=== PATIENT | male | born 2000 | race Caucasian/White ===

== ENCOUNTER 2019-04-06 14:31 | Outpatient (CLI) | payer OTHER, SELFPAY ==
--- NOTE | ~2019-04-06 | CT_ITS ---
EXAMINATION: CT abdomen w con DATE: 04/06/2019 15:20 INDICATION: Splenomegaly. TECHNIQUE: Computed tomography (CT) of the abdomen was performed with 100 mL Omnipaque 350 intravenou s contrast. Automated exposure control and iterative reconstruction technique were employed. The dose -length product was 105.73 mGy-cm. COMPARISON: CT abdomen and pelvis 09/22/2018 FINDINGS: There is poor contrast opacification due to IV infiltration. The visualized portions of the lung bases are clear without pneumonia or pleural effusion. The heart size is normal. No pericardial effusion. The liver, gallbladder, pancreas, adrenal glands, and kidneys are normal. There is no urol ithiasis. There is mild splenomegaly measuring 14.7 cm. There are no dilated loops of bowel. There ar e no pathologically enlarged lymph nodes. There is no free intraperitoneal fluid. The bones are unrem arkable. IMPRESSION: 1. Stable mild splenomegaly, likely secondary to obesity. Reviewed, dictated and finalized at location A. 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
== END 2019-04-06 14:32 | disposition home or self-care (01) ==
LOC: ANHIMG 14:36
PROVIDERS: Visit Provider Nurse Practitioner Adult Health
DX: R16.1 Splenomegaly, not elsewhere classified (principal)
CPT/HCPCS: 74160; Q9967

== ENCOUNTER → 2020-11-23 12:56 | Outpatient (CLI) | payer MEDICARE, MEDICAID, SELFPAY ==
--- NOTE | ~2020-11-23 | CT_ITS ---
EXAMINATION: CT abdomen wo/w con DATE: 11/23/2020 13:44 INDICATION: Adrenal gland disorder TECHNIQUE: Computed tomography (CT) of the abdomen was performed without intravenous contrast. CT of the abdomen was then performed with a total of 100 mL Omnipaque 350 intravenous contrast. The dose-le ngth product (DLP) was 2449.21 mGy-cm. Automated exposure control and iterative reconstruction techni que were employed. COMPARISON: 04/06/2019 FINDINGS: The lung bases are clear. The heart size is normal. The liver, spleen, pancreas, gallbladde r, and kidneys are normal. The adrenal glands are normal. No adrenal mass is identified. There are no pathologically enlarged abdominal lymph nodes. The appendix is normal. There is no free intraperiton eal gas or evidence of bowel obstruction. IMPRESSION: 1. Normal adrenal glands by CT. Reviewed, dictated and finalized at location A.
== END ==
PROVIDERS: PCP Nurse Practitioner Adult Health; Visit Provider Internal Medicine Endocrinology, Diabetes & Metabolism
DX: E27.9 Disorder of adrenal gland, unspecified (principal)
CPT/HCPCS: 74170; Q9967

== ENCOUNTER 2022-01-22 10:05 | Outpatient (CLI) | payer MEDICARE, MEDICAID, SELFPAY ==
--- NOTE | ~2022-01-22 | XR_ITS ---
EXAMINATION: XR chest 2V 01/22/2022 11:18 INDICATION: Asthma. PROCEDURE: 2 view chest COMPARISON: No prior studies for comparison. FINDINGS: The lungs are clear. The cardiomediastinal silhouette is within normal limits. There are no pleural effusions. There is no pneumothorax suspected. IMPRESSION: 1: NO ACUTE CARDIOPULMONARY DISEASE. Reviewed, dictated and finalized at location A. ACE BOSS
--- NOTE | 2022-01-23 16:30 | WPDPFTINT ---
PFT Procedure Performed PFT Procedure Performed Spirometry with Pre/Post Bronchodilator Plethysmography (Lung Vol) Diffusing Cap (DLCO) Flow Vol Loop PFT Interpretation Lung volumes were measured with the body plethysmography method. This severely reduced expiratory reserve volume is due to morbid obesity. The remaining lung volumes are unremarkable. Spirometry showed normal expiratory flow rates and a normal FEV1 to FVC ratio of 82%. Following administration of a bronchodilator there was no significant increase in expiratory flow rates. Lung diffusion capacity is within the normal range at 91% predicted. The flow volume loop is unremarkable. Impression: Spirometry, lung volumes, and lung diffusion capacity all within the normal range.
== END 2022-01-22 10:06 | disposition home or self-care (01) ==
PROVIDERS: PCP Family Medicine; Visit Provider Nurse Practitioner
DX: J45.909 Unspecified asthma, uncomplicated (principal)
CPT/HCPCS: 71046; 94060; 94726; 94729

== ENCOUNTER 2022-02-12 01:03 | Day surgery (SDC) | payer MEDICARE, MEDICAID, SELFPAY ==
[2022-02-05 12:29] VITALS: BMI 46.2
[2022-02-12 12:52] VITALS: BP 141/72; PULSE 87; RESP 20; TEMP 36.7; O2SAT 100
[2022-02-12] MEDS: LACTATED RINGERS 1,000 ML 150 ML IV CONT (12:54)
--- NOTE | 2022-02-12 13:27 | WPDANESEPPF ---
Anes - Initial Pre Proc Eval Procedure: Operation Date: 02/12/22 14:15 Proposed Procedures p Esophagogastroduodenoscopy & Colonoscopy - Steven Swanson MD Date/Time: 02/12/22 13:27 Surgeon: Steven Swanson MD Pre Op Diagnosis: Nausea, vomiting, GERD; Melena Patient Data Age: 21 Gender: M Height: 1.83 m Weight: 151.7 kg Last Vital Signs Temp 36.7 C 02/12/22 12:52 Pulse 87 02/12/22 12:52 Resp 20 02/12/22 12:52 BP 141/72 H 02/12/22 12:52 Pulse Ox 100 02/12/22 12:52 O2 Del Method Room Air 02/12/22 12:52 Allergies Allergy/AdvReac Type Severity Reaction Status Date / Time Sulfa (Sulfonamide Allergy Unknown Unknown Verified 02/12/22 12:53 Antibiotics) Home Medications Medication Instructions Recorded Confirmed Type pantoprazole 40 mg tablet,delayed 40 mg PO QAM #30 tabs 01/23/22 02/12/22 Rx release atorvastatin 20 mg tablet 20 mg PO DAILY 02/05/22 02/12/22 History citalopram 20 mg tablet 20 mg PO DAILY 02/05/22 02/12/22 History ibuprofen 800 mg PO TID PRN Pain 02/05/22 02/12/22 History levofloxacin 500 mg tablet 500 mg PO DAILY 02/05/22 02/12/22 History levothyroxine 137 mcg tablet 137 mcg PO DAILY 02/05/22 02/12/22 History loratadine 10 mg PO DAILY 02/05/22 02/12/22 History montelukast 10 mg tablet 10 mg PO DAILY 02/05/22 02/12/22 History Patient hx anesthesia problems: none Family hx anesthesia problems: none Results Review: All pre-operative results and documents have been reviewed as part of the pre-operative evaluation. [facility] Past Medical History Medical History Chronic benign neutropenia Family hx colonic polyps Family hx of colon cancer GERD (gastroesophageal reflux disease) Hematochezia Nausea and vomiting Obesity Social History Social History Smoking status: Never smoker Alcohol intake: never Substance use: never Substance use type: does not use Living arrangements: with family Spiritual care concerns: No Anes - Eval Final PreProcedure Day of Procedure 02/12/22 13:27 Patient weight: super morbidly obese Heart: regular rate and rhythm Lungs: decreased breath sounds Airway: Mallampati scale class II Neurological: alert and oriented Last oral intake: >/= 8 hours ASA classification: III Emergent: no Anesthetic plan: proceed Anesthesia type and monitoring: general GIVS and standard monitoring Results Review: All pre-operative results and documents have been reviewed as part of the pre-operative evaluation. Informed Consent: The patient's anesthetic plan and its attendant risks and benefits were discussed with the patient/family/POA. Questions were solicited and answers provided to the satisfaction of the patient/family/POA.
--- NOTE | 2022-02-12 13:31 | WPDHPUPDATE1 ---
History and Physical Update Update Date/Time: 02/12/22 13:31 History and Physical has been reviewed, including an updated exam of the patient. There are NO changes in the patient's condition. Risks, benefits, and alternatives have been discussed and questions answered. Patient agrees to proceed with procedure.
--- NOTE | 2022-02-12 13:41 | SUR.OPER ---
EGD END TIME 1345 COLON START TIME 1355
[2022-02-12 14:03] VITALS: BP 122/74; PULSE 109; RESP 25; O2SAT 100
[2022-02-12 14:13] VITALS: BP 101/61; PULSE 100; RESP 19; O2SAT 100
[2022-02-12 14:23] VITALS: BP 130/68; PULSE 98; RESP 20; O2SAT 98
== END 2022-02-12 14:36 | disposition home or self-care (01) ==
PROVIDERS: PCP Family Medicine; Visit Provider Internal Medicine Gastroenterology
PROC: 0DJ08ZZ Inspection of Upper Intestinal Tract, Via Natural or Artificial Opening Endoscopic (ICD-10-PCS; CPT 43235; principal; 2022-02-12 14:15)
DX: K92.1 Melena (principal); K64.8 Other hemorrhoids; R11.2 Nausea with vomiting, unspecified; K21.9 Gastro-esophageal reflux disease without esophagitis; Z80.0 Family history of malignant neoplasm of digestive organs; Z83.71 Family history of colonic polyps; E66.01 Morbid (severe) obesity due to excess calories; Z68.42 Body mass index [BMI] 45.0-49.9, adult
CPT/HCPCS: 45378; 43239; 88305; J2704; J7120

== ENCOUNTER 2022-03-25 12:49 | Outpatient (CLI) | payer MEDICARE, MEDICAID, SELFPAY ==
--- NOTE | 2022-03-25 15:13 | PCRCNOTE ---
NOTE: PATIENT EXPERIENCED SOB AND COUGH WHEN COMPLETING LAST DOSE OF METHACHOLINE(LEVEL 5) ALSO REQUIRED 2 ALBUTEROL NEB TREATMENTS TO RETURN TO BASELINE FEV1. ATTEMPTED 7 POST SPIROMETRY TRIALS.
--- NOTE | 2022-03-26 14:46 | WPDMETH ---
Methacholine Procedure Perform Procedure Performed Methacholine Challenge Methacholine Challenge Methacholine Challenge: Methacholine challenge was performed with quadruple increases of nebulized methacholine according to 5 steps dosimeter protocol recommended by the ATS/ERS 2017 guidelines. Following administration of 464.4 mcg of methacholine at step 5, the measured FEV1 decreased by approximately 15% from the baseline measurement. Post administration of the first dose of nebulized short-acting bronchodilator, the FEV1 did not change significantly. Impression: Negative methacholine challenge testing. Normal airway hyperresponsiveness.
== END 2022-03-25 12:50 | disposition home or self-care (01) ==
LOC: ANHPFT 12:50
PROVIDERS: PCP Family Medicine; Visit Provider Nurse Practitioner
DX: J45.909 Unspecified asthma, uncomplicated (principal)
CPT/HCPCS: 94070; J7674

== ENCOUNTER 2022-04-04 20:49 | Emergency (ER) | payer MEDICARE, MEDICAID, SELFPAY ==
[2022-04-04 20:50] VITALS: BP 141/90; PULSE 97; RESP 20; O2SAT 97
--- NOTE | 2022-04-04 21:06 | ED.NAVMDI ---
HPI - Nausea/Vomiting/Diarrhea General Chief complaint: Nausea/Vomiting/Diarrhea <Lacie Upton PA-C - Last Filed: 04/04/22 21:29> Stated complaint: hemorroids <Lacie Upton PA-C - Last Filed: 04/04/22 21:29> History of Present Illness HPI Narrative: 21-year-old male reports for rectal pain and bleeding with onset 20 minutes ago. Patient states he has been to having diarrhea the past few days since he was exposed to a positive COVID contact. He has not been tested for COVID. Patient states he was having diarrhea when he experienced sudden onset of rectal pain. States he noticed scant blood on the toilet paper. Patient reports he has a history of GI problems including vomiting and GI upset. States he got a colonoscopy and was seen by GI a in January. Colonoscopy was negative, other than hemorrhoids. Patient states he has topical hydrocortisone cream given by his primary that he applies to his hemorrhoids. Denies eating spicy food. Denies abdominal pain, nausea, vomiting, fever, body aches, chills. States his COVID like sx are improved other than the diarrhea. <Lacie Upton PA-C - Last Filed: 04/04/22 21:29> Related Data Home medications: Home Medications Medication Instructions Recorded Confirmed atorvastatin 20 mg tablet 20 mg PO DAILY 02/05/22 03/17/22 citalopram 20 mg tablet 20 mg PO DAILY 02/05/22 03/17/22 ibuprofen 800 mg PO TID PRN Pain 02/05/22 03/17/22 levofloxacin 500 mg tablet 500 mg PO DAILY 02/05/22 03/17/22 levothyroxine 137 mcg tablet 137 mcg PO DAILY 02/05/22 03/17/22 loratadine 10 mg PO DAILY 02/05/22 03/17/22 montelukast 10 mg tablet 10 mg PO DAILY 02/05/22 03/17/22 <Lacie Upton PA-C - Last Filed: 04/04/22 21:29> Allergies/Adverse reactions: Allergies Allergy/AdvReac Type Severity Reaction Status Date / Time Sulfa (Sulfonamide Allergy Unknown Unknown Verified 03/17/22 12:58 Antibiotics) <Lacie Upton PA-C - Last Filed: 04/04/22 21:29> Review of Systems Review of Systems: CONSTITUTIONAL: Denies fever, chills EYES: Denies visual changes, redness, or discharge. ENT: Denies rhinorrhea, congestion, sore throat, or otalgia. CARDIOVASCULAR: Denies chest pain, palpitations, or edema. RESPIRATORY: Denies cough or dyspnea. GASTROINTESTINAL: Denies abdominal pain, nausea, vomiting GENITOURINARY: Denies dysuria or hematuria. SKIN: Denies rash or itching. MUSCULOSKELETAL: Denies back pain, joint pain, or myalgia. NEUROLOGIC: Denies headache, numbness, dizziness, or weakness. PSYCHIATRIC: Denies anxiety or depression. <Lacie Upton PA-C - Last Filed: 04/04/22 21:29> [facility] Past Medical History Medical History: Medical History Chronic benign neutropenia Family hx colonic polyps Family hx of colon cancer GERD (gastroesophageal reflux disease) Hematochezia Nausea and vomiting Obesity <Lacie Upton PA-C - Last Filed: 04/04/22 21:29> Social History Social History: Social History Smoking status: Never smoker Alcohol intake: never Substance use: never Substance use type: does not use Living arrangements: with family Spiritual care concerns: No <Lacie Upton PA-C - Last Filed: 04/04/22 21:29> Exam Narrative: GENERAL: Well-appearing, well-nourished, and in no acute distress. HEAD: Normocephalic, atraumatic. EYES: PERRLA and EOMI. NECK: Supple. No adenopathy or masses. No carotid bruits or JVD CHEST: Clear to auscultation. No respiratory distress. No wheezes rales or rhonchi HEART: Regular rate and rhythm. No murmur heard. Normal peripheral pulses. ABDOMEN: Soft, nontender, nondistended, normal active bowel sounds. Diffuse erythema surrounding rectum. No external hemorrhoids, or anal fissures visualized. No internal hemorrhoids felt. no induration or fluctuation. EXTREMITIES: Normal range of
[2022-04-04 21:51] VITALS: BP 136/81; PULSE 95; RESP 22; O2SAT 96
== END 2022-04-04 22:00 | disposition home or self-care (01) ==
PROVIDERS: Emergency Provider Physician Assistant; PCP Family Medicine
DX: U07.1 COVID-19 (principal); L24.A9 Irritant contact dermatitis due friction or contact with other specified body fluids; K21.9 Gastro-esophageal reflux disease without esophagitis; E66.9 Obesity, unspecified; Z68.41 Body mass index [BMI] 40.0-44.9, adult
CPT/HCPCS: 99281

== ENCOUNTER 2022-04-21 13:40 | Outpatient (CLI) | payer MEDICARE, MEDICAID, SELFPAY ==
[2022-04-21 14:57] LABS: Hematocrit 41.6 % (42.0-52.0); Hemoglobin 13.5 g/dL (14.0-18.0); Mean Corpuscular HGB Conc 32.5 g/dl (32-36); Mean Corpuscular Hemoglobin 28.7 pg (26-34); Mean Corpuscular Volume 88.3 fl (80-100); Platelet Count Result 172 k/mm3 (150-375); Red Blood Count 4.71 M/mm3 (4.6-6.20); Red Cell Distribution Width 12.7 % (11.5-14.5); White Blood Count 2.5 K/mm3 (4.5-10.0)
[2022-04-21 15:23] LABS: CRP 4.4 mg/dL (<1.0)
[2022-04-21 16:04] LABS: Erythrocyte Sedimentation Rate 33 mm/hr (0-20)
== END 2022-04-21 13:41 | disposition home or self-care (01) ==
LOC: ANHLAB 13:41
PROVIDERS: Visit Provider Nurse Practitioner Family
DX: E66.9 Obesity, unspecified (principal); K60.2 Anal fissure, unspecified
CPT/HCPCS: 36415; 85027; 85652; 86140

== ENCOUNTER → 2022-04-21 14:16 | Outpatient (CLI) | payer MEDICARE, MEDICAID, SELFPAY ==
--- NOTE | ~2022-04-21 | CT_ITS ---
EXAMINATION: CT abdomen pelvis w con DATE: 04/21/2022 15:11 INDICATION: Rectal pain. TECHNIQUE: Computed tomography (CT) of the abdomen and pelvis was performed with 100 mL Omnipaque 350 intravenous contrast. Automated exposure control and iterative reconstruction technique were employe d. The dose-length product was 1544.11 mGy-cm. COMPARISON: CT abdomen 11/23/2020 FINDINGS: The visualized portions of the lung bases demonstrate minimal atelectasis. No pleural effus ion. The heart size is normal. No pericardial effusion. The liver, gallbladder, spleen, pancreas, adr enal glands, and kidneys are normal. There are no dilated loops of bowel. The appendix is normal. The re are no pathologically enlarged lymph nodes. There is no free intraperitoneal fluid. There is subcu taneous fat stranding in the left buttock at the intergluteal cleft. There is mild lumbar spondylosis . IMPRESSION: 1. Mild subcutaneous fat stranding in the left buttock at the intragluteal cleft, consistent with inf lammation. No abscess. Reviewed, dictated and finalized at location A. 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 Mild subcutaneous fat stranding in the left buttock at the intragluteal clef t, consistent with inflammation. No abscess.
== END ==
PROVIDERS: PCP Family Medicine; Visit Provider Nurse Practitioner Family
DX: K60.2 Anal fissure, unspecified (principal)
CPT/HCPCS: 74177; Q9967

== ENCOUNTER 2022-04-22 12:47 | Emergency (ER) | payer MEDICARE, MEDICAID, SELFPAY ==
[2022-04-22 12:59] VITALS: BP 125/82; PULSE 120; RESP 20; TEMP 36.2; O2SAT 98
--- NOTE | 2022-04-22 14:15 | PC.NURSE ---
pt and mother have sat out in lobby making snide comments about department and wait time. up to desk asking bracelet to be cut off. stating they are going to another facility.
--- NOTE | 2022-04-22 14:15 | PC.NURSE ---
pt and mother sitting across from intake desk. pt stated i shouldve come by ambulance. this world is so fucked up.
== END 2022-04-22 14:43 | disposition left against medical advice (07) ==
LOC: ANHED 15:11
PROVIDERS: PCP Family Medicine
DX: K62.89 Other specified diseases of anus and rectum (principal)
CPT/HCPCS: 99199

== ENCOUNTER 2022-07-18 08:00 | Outpatient (CLI) | payer MEDICARE, MEDICAID, SELFPAY ==
--- NOTE | ~2022-07-18 | CT_ITS ---
CT of the Pelvis: Indication: Rectal pain Technique: 2.5 mm axial scans were obtained through the pelvis following intravenous administration of 100 cc of Omnipaque 350. Dose reduction technique was used on this scan by utilizing automated exp osure control and iterative reconstruction technique. The dose-length product (DLP) was 1009.84 mGy-c m. COMPARISON: 04/21/2022 Findings: No aortic aneurysm. Stable shotty bilateral inguinal lymph nodes. Urinary bladder unremarka ble. Prostate gland and seminal vesicles are unremarkable. No ascites. Visualized bowel loops are unremarkable. No perirectal abscess. Subcutaneous soft tissues are unremar kable. No abnormal mass lesion or fluid collection seen. Impression: No significant abnormalities seen. Reviewed, dictated and finalized at [facility]. Impression: No significant abnormalities seen.
== END 2022-07-18 08:01 | disposition home or self-care (01) ==
PROVIDERS: PCP Family Medicine; Visit Provider Surgery
DX: K62.89 Other specified diseases of anus and rectum (principal)
CPT/HCPCS: 72193; Q9967

== ENCOUNTER 2022-08-26 16:22 | Emergency (ER) | payer MEDICARE, MEDICAID, SELFPAY ==
--- NOTE | ~2022-08-26 | CT_ITS ---
CT of the Abdomen and Pelvis: Indication: Rectal abscess Technique: 2.5 mm axial scans were obtained through the abdomen and pelvis following intravenous adm inistration of 100 cc of Omnipaque 350. Dose reduction technique was used on this scan by utilizing a utomated exposure control and iterative reconstruction technique. The dose-length product (DLP) was 1 834.75 mGy-cm. COMPARISON: 07/18/2022 Findings: Scans through the lung bases are unremarkable. The liver, spleen, pancreas, gallbladder, adrenals and kidneys are within normal limits. No evidence of aortic aneurysm. No lymphadenopathy. No bowel obstruction or bowel wall thickening. There is no evidence to suggest acute appendicitis. Images through the pelvis were performed. Urinary bladder unremarkable. Prostate gland and seminal ve sicles are unremarkable. No evidence for perirectal abscess. No ascites. Impression: No significant abnormalities seen. Reviewed, dictated and finalized at [facility]. Impression: No significant abnormalities seen.
[2022-08-26 16:26] VITALS: BP 157/95; PULSE 94; RESP 20; TEMP 36.6; O2SAT 100
--- NOTE | 2022-08-26 17:50 | ED.SKABFB ---
HPI - Skin/Abscess/Foreign Bdy General Chief complaint: Skin/Abscess/Foreign Body <Lacie Upton PA-C - Last Filed: 08/27/22 00:48> Stated complaint: Rectal Abcess swelling, pain, and drainage <Lacie Upton PA-C - Last Filed: 08/27/22 00:48> Time Seen by Provider: 08/26/22 17:00 <Lacie Upton PA-C - Last Filed: 08/27/22 00:48> History of Present Illness HPI narrative: 21-year-old male with a history of rectal abscess and neutropenia reports for evaluation of increased rectal pain and drainage since yesterday. Patient has been having rectal pain since he had COVID in March 2022. He went to [place] [facility] on 04/22, was found to have a rectal abscess and had it drained in the ER by Dr. Hardin's assistance. Patient reports since his procedure he has been having rectal pain and drainage. States yesterday he noticed it was draining and messed with it and today the pain is a 9 out of 10. States the drainage is purulent. His last colonoscopy was on 02/13 showing internal hemorrhoids. He denies blood, melena, abdominal pain, fever, nausea or vomiting. He was evaluated by GI on 04/17 by Gilda Abdullahi, was dx with anal fissures and started on topical compound cream consistent of nifedipine, lidocaine, and hydrocortisone. CT scan on 04/21/2022 shows mild subcutaneous fat stranding in the left buttock at the intergluteal cleft, consistent with inflammation, no abscess. He was then seen by Dr. Muñoz (general surgery) on 07/11/22, found to have inflammation around the anal opening, CT with contrast ordered for further evaluation showing no abscess, SubQ tissues unremarkable. He was then referred to Dr. Potter with an unremarkable exam. He is scheduled to undergo a sigmoidoscopy on 09/[address] Potter. He is currently be evaluated by hematology at [facility] (Dr. Daniel) for neutropenia for 5 years. He is on daily Levaquin and Diflucan for prophylaxis. He denies fevers, abdominal pain, melena or hematochezia, urinary complaints back pain. Last BM yesterday was normal. He has not taken his stool stofteners or fiber in a couple days. He has not been using topical creams bc they burn . <Lacie Upton PA-C - Last Filed: 08/27/22 00:48> Related Data Home medications: Home Medications Medication Instructions Recorded Confirmed atorvastatin 20 mg tablet 20 mg PO DAILY 02/05/22 07/14/22 citalopram 20 mg tablet 20 mg PO DAILY 02/05/22 07/14/22 ibuprofen 800 mg PO TID PRN Pain 02/05/22 07/14/22 levothyroxine 137 mcg tablet 137 mcg PO DAILY 02/05/22 07/14/22 loratadine 10 mg PO DAILY 02/05/22 07/14/22 montelukast 10 mg tablet 10 mg PO DAILY 02/05/22 07/14/22 cyclobenzaprine 10 mg tablet 10 mg PO TID 07/11/22 07/14/22 levofloxacin 250 mg tablet 250 mg PO DAILY 07/11/22 07/14/22 <Lacie Upton PA-C - Last Filed: 08/27/22 00:48> Allergies/Adverse reactions: Allergies Allergy/AdvReac Type Severity Reaction Status Date / Time Sulfa (Sulfonamide Allergy Unknown Unknown Verified 08/26/22 16:33 Antibiotics) <Lacie Upton PA-C - Last Filed: 08/27/22 00:48> Review of Systems Review of Systems: CONSTITUTIONAL: Denies fever, chills EYES: Denies visual changes, redness, or discharge. ENT: Denies rhinorrhea, congestion, sore throat, or otalgia. CARDIOVASCULAR: Denies chest pain, palpitations, or edema. RESPIRATORY: Denies cough or dyspnea. GASTROINTESTINAL: See HPI GENITOURINARY: Denies dysuria or hematuria. SKIN: Denies rash or itching. MUSCULOSKELETAL: Denies back pain, joint pain, or myalgia. NEUROLOGIC: Denies headache, numbness, dizziness, or weakness. PSYCHIATRIC: Denies anxiety or depression. <Lacie Upton PA-C - Last Filed: 08/27/22 00:48> [facility] Past Medical History Medical History: Medical History Abnormal finding on imaging Anal fissure Chronic benign neutropenia Family hx colonic polyps Famil
[2022-08-26] MEDS: SODIUM CHLORIDE 0.9% IV 1,000 ML 999 ML IV CONT (18:20)
[2022-08-26 18:26] LABS: Appearance Urine Clear (Clear); Basophils Percent Auto 0.7 % (0.2-1.2); Bilirubin Urine Negative (Negative); Blood Urine Negative (Negative); Color Urine Yellow (Yellow); Eosinophils Percent Auto 2.2 % (0-4.4); Glucose Urine UA Negative (Negative); Hematocrit 40.9 % (42.0-52.0); Hemoglobin 14.1 g/dL (14.0-18.0); Immature Granulocyte Absolute 0.01 K/mm3 (0.00-0.031); Immature Granulocyte Percent A 0.7 % (0-0.5); Ketones Urine Negative (Negative); Leukocyte Esterase Ur Negative LEU/UL (Negative); Lymphocytes Absolute Auto 0.57 K/mm3 (0.9-3.2); Lymphocytes Percent Auto 41.9 % (18.3-44.2); Mean Corpuscular HGB Conc 34.5 g/dl (32-36); Mean Corpuscular Volume 84.2 fl (80-100); Mean Platelet Volume 11.9 fl (7.4-10.4); Monocytes Absolute Auto 0.4 K/mm3 (0.1-0.6); Monocytes Percent Auto 32.4 % (2.6-8.5); Neutrophils Absolute Auto 0.3 K/mm3 (1.3-6.7); Neutrophils Percent Auto 22.1 % (45.5-73.1); Nitrate Urine Negative (Negative); Platelet Count Result 127 k/mm3 (150-375); Protein Urine Negative (Negative); Red Blood Count 4.86 M/mm3 (4.6-6.20); Red Cell Distribution Width 12.3 % (11.5-14.5); Specific Grav Ur 1.015 (1.001-1.035); Urobilinogen Urine 0.2 mg/dL (<2.0)
[2022-08-26 18:27] LABS: Add Urine Microscopic? NO
[2022-08-26 18:36] LABS: Alanine Aminotransferase 29 U/L (6-50); Albumin Level 4.1 g/dL (3.5-5.1); Alkaline Phosphatase 52 U/L (38-126); Anion Gap 8 mmol/L (8-16); Aspartate Amino Transferase 22 U/L (17-59); Bilirubin,Total 0.9 mg/dL (0.2-1.3); Blood Urea Nitrogen 9 mg/dL (9-20); Calcium 8.9 mg/dL (8.4-10.2); Carbon Dioxide 25 mmol/L (22-30); Chloride 107 mmol/L (98-107); Estimated CRCL calculation 161 ml/min; Estimated Glomerular Filt Rate > 60; Glucose 97 mg/dL (65-110); Lipase 35 U/L (23-300); Potassium 3.6 mmol/L (3.4-5.0); Sodium 140 mmol/L (137-145)
[2022-08-26 19:00] LABS: White Blood Count 1.4 K/mm3 (4.5-10.0)
[2022-08-26 20:03] VITALS: BP 117/85; PULSE 66; RESP 14; O2SAT 100
== END 2022-08-26 20:04 | disposition home or self-care (01) ==
PROVIDERS: Emergency Provider Physician Assistant; PCP Family Medicine
DX: K62.89 Other specified diseases of anus and rectum (principal); D72.819 Decreased white blood cell count, unspecified; K21.9 Gastro-esophageal reflux disease without esophagitis; E66.9 Obesity, unspecified; Z68.41 Body mass index [BMI] 40.0-44.9, adult
CPT/HCPCS: 36415; 74177; 80053; 81003; 83690; 85025; 96360; 99284; J7030; Q9967

== ENCOUNTER 2023-02-27 11:22 | Outpatient (CLI) | payer MEDICARE, MEDICAID, SELFPAY ==
[2023-02-27 12:15] LABS: CRP 1.1 mg/dL (<1.0)
[2023-02-27 12:47] LABS: Erythrocyte Sedimentation Rate 1 mm/hr (0-20)
[2023-03-04 10:20] LABS: ANCA Screen Negative (Negative); Myeloperoxidase Ab <1.0 AI (<1.0); Proteinase-3 Ab <1.0 AI (<1.0); S cerevisiae Ab (IgA) 4.5 U (<=20.0); S cerevisiae Ab (IgG) 20.1 U (<=20.0)
[2023-03-06 10:00] LABS: Immunoglobulin A 39 mg/dL (47-310); TTG IGA AB <1.0 U/mL (<15.0); Tissue Transglutaminase IgG Ab <1.0 U/mL (<15.0)
== END 2023-02-27 11:23 | disposition home or self-care (01) ==
PROVIDERS: PCP Family Medicine; Visit Provider Nurse Practitioner
DX: K61.0 Anal abscess (principal); K62.89 Other specified diseases of anus and rectum; K64.4 Residual hemorrhoidal skin tags
CPT/HCPCS: 36415; 82784; 85652; 86036; 86140; 86364; 86671

== ENCOUNTER 2023-05-23 12:26 | Outpatient (CLI) | payer MEDICARE, MEDICAID, SELFPAY ==
--- NOTE | ~2023-05-23 | MR_ITS ---
EXAMINATION: MR pelvis wo/w con DATE: 05/23/2023 14:39 INDICATION: Crohn disease. Abdominal pain. Diarrhea. TECHNIQUE: Magnetic resonance imaging (MRI) of the pelvis was performed without and with 20 mL MultiH ance intravenous contrast. COMPARISON: CT abdomen and pelvis 08/26/2022 FINDINGS: There are no dilated loops of bowel. There is a 6 mm perianal abscess best seen on postcontrast axial images. The prostate is mildly enlarged. There are no pathologically enlarged lymph nodes. There is no free intraperitoneal fluid. IMPRESSION: 1. 6 mm perianal abscess. Reviewed, dictated and finalized at location A. IMPRESSION: 1. 6 mm perianal abscess.
--- NOTE | ~2023-05-23 | MR_ITS ---
EXAMINATION: MR abdomen wo/w con DATE: 05/23/2023 14:22 INDICATION: Crohn's disease. Abdominal pain. Diarrhea. TECHNIQUE: Magnetic resonance imaging (MRI) of the abdomen was performed without and with 20 mL Multi Katia intravenous contrast. COMPARISON: CT abdomen and pelvis 08/26/2022 FINDINGS: There is chronic mild splenomegaly, which may be secondary to obesity. The liver, gallbladder, pancre as, adrenal glands, and kidneys are normal. There are no dilated loops of bowel. The terminal ileum i s normal. There is no lymphadenopathy. There is no free intraperitoneal fluid. IMPRESSION: 1. No etiology for the patient's symptoms. Reviewed, dictated and finalized at location A.
== END 2023-05-23 12:27 | disposition home or self-care (01) ==
LOC: ANHIMG 12:30
PROVIDERS: PCP Family Medicine; Visit Provider Internal Medicine Endocrinology, Diabetes & Metabolism
DX: K50.90 Crohn's disease, unspecified, without complications (principal); R10.9 Unspecified abdominal pain; R19.7 Diarrhea, unspecified; K61.0 Anal abscess
CPT/HCPCS: 72197; 74183; A9577

== ENCOUNTER 2023-08-20 09:44 | Outpatient (CLI) | payer MEDICARE, MEDICAID, SELFPAY ==
[2023-08-20 12:16] LABS: Immunoglobulin G 876 mg/dL (700-1600); Immunoglobulin M 51 mg/dL (40-230)
[2023-08-20 12:28] LABS: Immunoglobulin A < 40 mg/dL (70-400)
== END 2023-08-20 09:45 | disposition home or self-care (01) ==
LOC: ANHLAB 09:48
PROVIDERS: PCP Nurse Practitioner Adult Health; Visit Provider Internal Medicine Hematology & Oncology
DX: D83.9 Common variable immunodeficiency, unspecified (principal)
CPT/HCPCS: 36415; 82784

== ENCOUNTER 2023-09-18 18:41 | Emergency (ER) | payer MEDICARE, MEDICAID, SELFPAY ==
[2023-09-18 19:18] VITALS: BP 128/74; PULSE 109; RESP 16; TEMP 36.8; O2SAT 100
[2023-09-18 21:11] VITALS: BP 131/65; PULSE 111; RESP 18; TEMP 36.8; O2SAT 96
--- NOTE | 2023-09-18 21:32 | ED.SKABFB ---
HPI - Skin/Abscess/Foreign Bdy General Chief complaint: Skin/Abscess/Foreign Body Stated complaint: abcess Time Seen by Provider: 09/18/23 20:38 History of Present Illness HPI narrative: This is a 22-year-old male with a past medical history significant for hidradenitis who presents to the ED for concerns of subcutaneous wall abscess in his chest wall. Patient states he has been doing this for several years and recurs occasionally. He has been irritating it and picking at it recently which has caused become inflamed and have a putrid smell with some discharge. Patient states he was prescribed Levaquin recently without any help for the last 2 days. Patient denies any systemic features of infection such as fever, chills, headache fevers chills no chest pain, shortness of breath. Related Data Home Medications Medication Instructions Recorded Confirmed levothyroxine 137 mcg tablet 137 mcg PO DAILY 02/05/22 09/14/23 loratadine 10 mg PO DAILY 02/05/22 09/14/23 levofloxacin 250 mg tablet 500 mg PO DAILY 07/11/22 09/14/23 albuterol sulfate 90 mcg/actuation 2 puff inhalation Q4-5H PRN 08/28/22 09/14/23 aerosol inhaler (Ventolin HFA) Shortness Of Breath Or Wheezing budesonide-formoterol HFA 160 2 puff inhalation BID 08/28/22 09/14/23 mcg-4.5 mcg/actuation aerosol inhaler (Symbicort) fluconazole 200 mg tablet 400 mg PO DAILY 08/28/22 09/14/23 Fiber BYMOUTH 06/30/23 09/14/23 Stool Softeners BYVAUTH 06/30/23 09/14/23 Allergies Allergy/AdvReac Type Severity Reaction Status Date / Time Sulfa (Sulfonamide Allergy Unknown Unknown Verified 09/14/23 10:57 Antibiotics) vancomycin Allergy Unknown Unknown Verified 09/14/23 10:57 Review of Systems Review of Systems: As reviewed above in the HPI [facility] Past Medical History Medical History Abnormal finding on imaging Anal fissure Chronic benign neutropenia External hemorrhoids Family hx colonic polyps Family hx of colon cancer GERD (gastroesophageal reflux disease) Hematochezia Hemorrhoids Hidradenitis suppurativa Nausea and vomiting Obesity Family History Family History Mother Asthma Diabetes mellitus Hypertension Depression Heart disease Cerebrovascular accident History of ETOH abuse Disorder of thyroid Grandparent Diabetes mellitus Hypertension Lung cancer Ovarian cancer Social History Social History Smoking status: Never smoker Alcohol intake: never Substance use: never Substance use type: does not use Lack of Transportation: No Lack of Food: Never True Current Housing: I Have Housing Concerned About Future Housing: No Difficulty Paying Gas/Electric Bills: No Difficulty Paying for Meds: No Currently Unemployed: YES Education: High School Diploma/GED Living arrangements: with family Occupation/Education: unemployed Gender identity (if verbalized by the patient): Male Spiritual care concerns: No Exam Narrative: GENERAL: [Well-appearing, well-nourished, and in no acute distress.] HEAD: [Normocephalic, atraumatic.] EYES: [PERRLA and EOMI.] ENT: Nares clear, no rhinorrhea or epistaxis. Mucous membranes moist. NECK: Supple. CHEST: [Clear to auscultation. No respiratory distress.] HEART: [Regular rate and rhythm]. No murmur heard. [Normal peripheral pulses.] ABDOMEN: [Soft, nondistended], [nontender], [No rigidity or guarding] EXTREMITIES: Normal range of motion. [No edema.] SKIN: There is an area of approximately 3 cm x 3 cm of warm indurated skin in the parasternal chest wall more on the right side. There is a punctate wound with purulent material drainage with a foul odor. No overlying erythema or significant tenderness to palpation. There is fluctuance without crepitus. NEURO: [No focal deficits]. Alert and oriented
[2023-09-18] MEDS: CEPHALEXIN 500 MG CAPSULE PO (21:58)
[2023-09-18] MEDS: KETOROLAC 30 MG/ML VIAL (*BKC) 15 MG IM (22:06)
== END 2023-09-18 22:12 | disposition home or self-care (01) ==
PROVIDERS: Emergency Provider Student in an Organized Health Care Education/Training Program; PCP Nurse Practitioner Adult Health
DX: L02.213 Cutaneous abscess of chest wall (principal); L73.2 Hidradenitis suppurativa
CPT/HCPCS: 10060; 96372; 99283; A9270; J1885

== ENCOUNTER 2023-10-24 10:56 | Outpatient (CLI) | payer MEDICARE, MEDICAID, SELFPAY ==
--- NOTE | ~2023-10-24 | CT_ITS ---
EXAMINATION: CT brain wo con DATE: 10/24/2023 11:12 INDICATION: TECHNIQUE: Computed tomography (CT) of the head was performed without intravenous contrast. The dose- length product was 605.33 mGy-cm. Automated exposure control and iterative reconstruction technique w ere employed. COMPARISON: None FINDINGS: There is an arachnoid cyst right middle cranial fossa extending into the sylvian fissure. N o ventriculomegaly or midline shift. No acute infarction, hemorrhage, mass or mass effect. Paranasal sinuses and mastoids are pneumatized. No depressed skull fractures. IMPRESSION: 1. Large arachnoid cyst of the right middle cranial fossa extending into the sylvian fissure. 2: No acute intracranial abnormality. Reviewed, dictated and finalized at location B. IMPRESSION: 1. Large arachnoid cyst of the right middle cranial fossa extending into the sy lvian fissure. 2: No acute intracranial abnormality.
== END 2023-10-24 10:57 | disposition home or self-care (01) ==
PROVIDERS: PCP Nurse Practitioner Adult Health; Visit Provider Nurse Practitioner Adult Health
DX: G93.0 Cerebral cysts (principal); G43.909 Migraine, unspecified, not intractable, without status migrainosus; R43.1 Parosmia
CPT/HCPCS: 70450

== ENCOUNTER 2024-05-23 15:27 | Outpatient (CLI) | payer MEDICARE, MEDICAID, SELFPAY ==
--- NOTE | ~2024-05-23 | CT_ITS ---
EXAMINATION: CT abdomen wo con DATE: 05/23/2024 15:59 INDICATION: Disorder of adrenal gland TECHNIQUE: Computed tomography (CT) of the abdomen was performed without intravenous contrast. Automa tejal exposure control and iterative reconstruction technique were employed. The dose-length product wa s 1016.20 mGy-cm. COMPARISON: CT dated 08/26/2022 and MR dated 05/23/2023 FINDINGS: There are few small calcite pulmonary. Visualized bilateral lower lungs. No pneumonia, pulmonary suzanne a or pleural effusion. Heart size normal. No pericardial effusion. Liver, gallbladder, spleen, pancre as, bilateral adrenal glands and kidneys are normal. Visualized portions of bowels including the appe ndix are normal. No pathologically enlarged abdominal lymphadenopathy. Mild lumbar and lower thoracic spondylosis. IMPRESSION: 1. Unremarkable abdominal CT with normal bilateral adrenal glands. Reviewed, dictated and finalized at location B.
--- OUTSIDE RECORDS SUMMARY | 2024-05-23 16:59 | XMS_ITS | CONTINUITY OF CARE DOCUMENT ---
Author Name corazon chandra Address Unknown Organization [facility] Address [address] [place] [address] Phone [phone] Care Team Providers Care Senior Advisor Name Role Phone Chad TSE, Zhao Unavailable Zhao Bonilla MD Unavailable INSURANCE PROVIDERS Payer name Policy type / Coverage type [place] [employer] party ID [employer] AND [employer]ILY [employer] Medicaid 1 [id number] [place] [employer] Medicare [id number]
--- OUTSIDE RECORDS SUMMARY | 2024-05-23 16:59 | XMS_ITS | Clinical Summary ---
Author Organization [facility] [employer] Address [address] [place] [address] Care Team Providers Care Leach Runner Name Role Phone Mukesh Maldonado MD Unavailable [phone] Jazlyn Villarreal MD Unavailable [phone] El-Lucila Campuzano MD Primary Care Provider [phone] Source Comments [facility],non-owned Affiliates and Associated Physician Practices is amultiple site organization consisting of ambulatory clinics and hospital sitesin [place], [place], [place] and [place]. This disclosure is being madepursuant to the Care Everywhere program and may not contain all information available regarding this patient. Last updated 17.[facility] Allergies Active Allergy Reactions Criticality Noted Date Comments Sulfa Drugs Urticaria Medium 01/08/2015 Vancomycin Itching 02/12/2023 Medications * Be aware that medications may not be up to date on this document. Alwaysverify current medications with the patient. Medication Sig Dispensed Refills Start Date End Date Status albuterol HFA (PROVENTIL;VENTOLI N;PROAIR) 108 (90 BASE) MCG/ACT inhaler Inhale 2 (two) puffs by mouth every 6 hours as needed Active loratadine (CLARITIN) 10 MG tablet TK 1 T PO QAM 6 03/20/2017 Active montelukast (SINGULAIR) 10 MG tablet TK 1 T PO QD IN THE LUKE 6 03/20/2017 Active citalopram (CELEXA) 20 MG tablet TK 1 T PO QD 1 04/07/2018 Active albuterol (PROVENTIL;VENTOLI N) (2.5 MG/3ML) 0.083% nebulizer solution U 1 VIAL PER NEBULIZER TID PRN 6 01/05/2018 Active atorvastatin (LIPITOR) 10 MG tablet Take 2 (two) tablets by mouth once daily Active Acetaminophen (TYLENOL) 325 MG CAPS Take 325 mg by mouth as needed Active calcium carbonate (TUMS) 500 MG chew tablet Take 1 (one) tablet by mouth daily with food Active levothyroxine (TIROSINT) 125 MCG capsule Take 1 (one) capsule by mouth daily before breakfast Active LORazepam (Ativan) 0.5 MG tabletIndications: Anxiety Take 2 tabs 1 hour prior to procedure and bring the rest to the procedure. Reasons: Feeling Anxious 5 tablet 10/14/2021 Active HYDROcodone-acetam inophen ([place]) 7.5-325 MG tablet Take 1 (one) tablet by mouth 3 times daily as needed 02/04/2023 Active amoxicillin-clavul anate (Augmentin) 875-125 MG tablet Take 1 (one) tablet by mouth every 12 hours FOR 10 DAYS 04/08/2023 Active levothyroxine (Synthroid) 100 MCG tablet Take 1 (one) tablet by mouth daily before breakfast Active levoFLOXacin (Levaquin) 500 MG tabletIndications: Neutropenia, unspecified type TAKE 1 TABLET BY MOUTH EVERY DAY 30 tablet 11 01/27/2024 Active Additional Information Patient not taking.Reported on 04/19/2024 fluconazole (Diflucan) 200 MG tabletIndications: Neutropenia, unspecified type TAKE 2 TABLETS BY MOUTH ONCE DAILY WHEN ABSOLUTE NEUTROPHIL COUNT IS LESS THAN 500 60 tablet 5 01/25/2024 Active Additional Information Patient not taking.Reported on 04/19/2024 ondansetron, disintegrating, (Zofran ODT) 4 MG tabletIndications: Nausea and vomiting, unspecified vomiting type Take 1 (one) tablet by mouth every 6 hours as needed for Nausea/Vomiting Allow tablet to dissolve on the tongue 30 tablet 02/23/2024 Active filgrastim-aafi (Nivestym) 480 MCG/0.8ML prefilled syringe Inject 0.8 mL subcutaneously every 7 days 3.2 mL 1 04/22/2024 Active Active Problems Problem Noted Date Diagnosed Date High risk for chemotherapy-induced infectious co mplication 05/12/2023 Chemotherapy-induced neutropenia 05/12/2023 Chronic benign neutropenia 06/23/2022 HTN (hypertension) 12/15/2018 Splenomegaly 11/03/2018 Leukopenia 11/03/2018 Acquired hypothyroidism 01/08/2015 Overview (01/08/2015): Dx (2013) on routine screening biochemistries and managed at [facility] until recently when insurance coverage changed and no longer at accepted at [facility]. No prior medical records available at the time of this office visit. Last serum thyroid hormone levels due in August-September,, but not completed. Assessment & Plan (05/11/2018 12:09 PM CDT): Well treated. 1. L-thyroxine 0.125 mg daily 2. Orders Placed This Encounter LIPID PROFILE Order Specific Question: Is Patient Fasting? Answer: Yes T4 TOTAL TSH COMPREHENSIVE METABOLIC PANEL famotidine (PEPCID) 20 MG tablet Sig: Take 1 tablet by mouth 2 times daily Dispense: 60 tablet Refill: 4 3. Follow up with local adult recreation supervisor Assessment & Plan (04/13/2017 9:54 AM MATTRESS RENOVATOR): Acquired hypothyroidism 1. L-thyroxine 0.125 mg daily 2. Obtain serum TSH and total T4 following today's office appointment 3. Return appointment in one year Assessment & Plan (04/01/2016 2:06 PM MATTRESS RENOVATOR): 1. L-thyroxine 0.125 mg daily. 2. Obtain serum TSH and total T4 level following today's office appointment. 3. Counseled regarding medication adherence, keeping return appointments for blood specimen collections, return visits, and risks of developing other autoimmune diseases (diabetes mellitus, hypoparathyroidism). 4. Obtain serum TSH in six months. 5. Return appointment in one year. Assessment & Plan (01/08/2015 3:16 PM MATTRESS RENOVATOR): 1. L-thyroxine 0.1 mg daily. 2. Obtain serum basic metabolic panel, TSH and total T4 levels following today's office appointment (laboratory requisition given at the time of the appointment). 3. Return appointment in six months. Acanthosis nigricans, acquired 01/08/2015 Assessment & Plan (05/11/2018 12:10 PM CDT): At risk of developing diabetes meliltus 1. Dietary/exercise counseling provided 2. Fasting serum biochemistries 3. Follow up by telephone with family after screening studies completed. Assessment & Plan (04/13/2017 9:53 AM MATTRESS RENOVATOR): Acanthosis nigricans; morbid obesity, BMI > 43 (> 99th percentile); FH diabetes mellitus; at risk of developing diabetes mellitus 1. Fasting glucose, lipid profile, hemoglobin A1c 2. Dietary/exercise counseling provided 3. Referral to clinical day habilitation supervisor 4. Reviewed signs/symptoms/treatment of diabetes mellitus Assessment & Plan (04/01/2016 2:08 PM MATTRESS RENOVATOR): At risk of developing diabetes mellitus. 1. Obtain fasting comprehensive metabolic panel, hemoglobin A1c, lipid profile. 2. Dietary/exercise counseling provided - to facilate current weight loss (portion size control, decrease dietary concentrated sweets/fats; avoid skipped meals, limit TV . Assessment & Plan (01/08/2015 3:15 PM MATTRESS RENOVATOR): At risk of developing diabetes mellitus. 1. Signs/symptoms of diabetes mellitus reviewed. 2. Dietary counseling provided. 3. Obtain serum glucose and hemoglobin A1c level following today's office appointment (laboratory requisition given at the time of the appointment). 4. Return appointment in six months. Encounters Date Type Department Care Team Description 05/13/2024 9:56 AM CDT - 05/13/2024 11:59 PM CDT Hospital Encounter [facility] [address] [place] [address] Jazlyn Villarreal MD Discharge Disposition: Home or Self Care 05/13/2024 Travel 05/10/2024 Orders Only [facility] - Hematology/Oncology [address] [place] [phone] Jazlyn Villarreal MD Neutropenia, unspecified type 04/25/2024 Telephone [facility] - Hematology/Oncology [address] [place] [phone] Jazlyn Villarreal MD Medication Prior Auth Request 04/25/2024 Telephone [facility] - Hematology/Oncology [address] [place] [phone] Jazlyn Villarreal MD Medication Prior Auth Request 04/22/2024 Telephone [facility] - Hematology/Oncology [address] [place] [phone] Jazlyn Villarreal MD Medication Prior Auth Request 04/22/2024 Telephone [facility] - Hematology/Oncology [address] [place] [phone] Jazlyn Villarreal MD Medication Prior Auth Request 04/22/2024 Orders Only [facility] [address] [place] [phone] Chuck Lama RN 04/19/2024 1:40 PM MATTRESS RENOVATOR Office Visit [facility] - Hematology/Oncology [address] [place] [phone] Lucila King MD Rajeh, Mhd Nabeel, MD Neutropenia, unspecified type (Primary Dx); Chronic benign neutropenia 04/19/2024 1:09 PM MATTRESS RENOVATOR - 04/19/2024 11:59 PM MATTRESS RENOVATOR Hospital Encounter [facility] [address] [place] [phone] Lucila King MD Discharge Disposition: Home or Self Care 04/19/2024 Telephone [facility] - Hematology/Oncology [address] [place] [phone] Jazlyn Villarreal MD Medication Prior Auth Request 04/19/2024 Telephone [facility] - Hematology/Oncology [address] [place] [phone] Jazlyn Villarreal MD 04/19/2024 Orders Only [facility] [address] [place] [phone] Susan Sanches, LANDON-GANG RIDER 04/19/2024 Travel 04/15/2024 Orders Only [facility] - Hematology/Oncology [address] [place] [phone] Jazlyn Villarreal MD Chronic benign neutropenia 03/28/2024 Refill [facility] [address] [place] [phone] Chuck Lama, REGULATORY LEADER REFILL 03/21/2024 Refill [facility] - Hematology/Oncology [address] [place] [phone] Jazlyn Villarreal MD Refill Request 02/23/2024 3:20 PM MATTRESS RENOVATOR Office Visit [facility] - Hematology/Oncology [address] [place] [phone] Jazlyn Villarreal MD Splenomegaly (Primary Dx) 02/23/2024 2:56 PM MATTRESS RENOVATOR - 02/23/2024 11:59 PM MATTRESS RENOVATOR Hospital Encounter [facility] [address] [place] [address], [address] [place] [address] Discharge Disposition: Home or Self Care 02/23/2024 Refill [facility] [address] [place] [phone] Chuck Lama, REGULATORY LEADER REFILL 02/23/2024 Travel from Last 3 Months Immunizations Name Administration Dates Next Due INFLUENZA VACCINE 12/25/2019 INFLUENZA VACCINE, QUADR. (F LUZONE; FLULAVAL; FLUARIX; AFLURIA QUADRIVALENT; 6MO+), 0.5 ML (IIV4) 03/16/2019 PNEUMOCOCCAL PPSV23 11/06/2019 Family History Medical History Relation Name Comments Diabetes Mother Metformin, Lant us, Humalog with meals High Cholesterol Mother Hyperparathyroidism Mother high ca lcium level Hypertension Mother Thyroid Disease Paternal Grandmother Relation Name Status Comments Mother Paternal Grandmother Social History Tobacco Use Types Packs/Day Years Used Date Smoking Tobacco: Never Passive Smoke Exposure: Yes Smokeless Tobacco: Never Tobacco Cessation:Counseling Given: Not Answered Alcohol Use Standard Drinks/Week Comments No 0 (1 standard drink = 0.6 oz pur e alcohol) Sex and Gender Information Value Date Recorded Sex Assigned at Not on file Gender Identity Not on file Sexual Orientation Not on file Last Filed Vital Signs Vital Sign Reading Time Taken Comments Blood Pressure 108/69 04/19/2024 1:27 PM MATTRESS RENOVATOR Pulse 79 04/19/2024 1:27 PM MATTRESS RENOVATOR Temperature 36.7 C (98.1 F) 04/19/2024 1:27 PM MATTRESS RENOVATOR Respiratory Rate 20 04/19/2024 1:27 PM MATTRESS RENOVATOR Oxygen Saturation 98% 04/19/2024 1:27 PM MATTRESS RENOVATOR Inhaled Oxygen Concentration - - Weight 126.4 kg (278 lb 11.2 oz) 04/19/2024 1:27 PM MATTRESS RENOVATOR Height 175.3 cm (5' 9 ) 09/15/2023 1:01 PM CDT Body Mass Index 41.16 09/15/2023 1:01 PM CDT Plan of Treatment Upcoming Encounters Date Type Department Care Team (Late st Contact Info) Description 06/14/2024 12:30 PM CDT Appointment [facility] [address] [facility] [place] [address] 06/14/2024 1:20 PM CDT Office Visit [facility]ematology[facility]Oncology [address] [place] [phone] Jazlyn Villarreal MD [address] [facility] [place] [address] Health Maintenance Due Date Last Done Comments MEDICARE AWV 12 MONTHS 1998 HPV VACCINE (1 - Male 3-dose series) 2013 HEPATITIS C SCREENING 12/03/2016 DTAP/TDAP/TD VACCINES (1 - Tdap) 2017 HEPATITIS B VACCINE (1 of 3 - 19+ 3-dose series) 2017 ZOSTER VACCINE (1 of 2) 2017 COVID-19 VACCINE (2 - Pfizer risk series) 10/30/2020 10/09/2020 PNEUMOCOCCAL VACCINE (2 of 2 - PCV) 11/05/2020 11/06/2019 INFLUENZA VACCINE (#1) 2023 0, 12/25/2019, 03/16/2019, Additional history exists DEPRESSION SCREENING 02/24/2024 HIV SCREENING Completed 09/10/2021 HIB VACCINE Aged Out No longer eligi ble based on patient's age to complete this topic MENINGOCOCCAL (Group B) VACCINE SHARED DECISION-MAKING Aged Out No longer eligible based on patient's age to complete this topic MENINGOCOCCAL GROUPS A/C/Y/W VACCINE Aged Out No longer eligible based on patient's age to complete this topic Procedures Procedure Name Priority Date/Time Associated Diagnosis Comments US ABDOMEN LIMITED Routine 05/13/2024 10 :29 AM CDT Splenomegaly CBC W AUTO DIFFERENTIAL Routine 04/19/2024 1:16 PM MATTRESS RENOVATOR Neutropenia, unspecified type COMPREHENSIVE METABOLIC PANEL Routine 04/19/2024 1:16 PM MATTRESS RENOVATOR Neutropenia, unspecified type MAGNESIUM BLOOD Routine 04/19/2024 1:16 PM MATTRESS RENOVATOR Neutropenia, unspecified type PHOSPHORUS BLOOD Routine 04/19/2024 1:16 PM MATTRESS RENOVATOR Neutropenia, unspecified type DIFFERENTIAL MANUAL STAT 02/23/2024 3 :01 PM MATTRESS RENOVATOR Neutropenia, unspecified type PHOSPHORUS BLOOD STAT 02/23/2024 3:01 PM MATTRESS RENOVATOR Neutropenia, unspecified type MAGNESIUM BLOOD STAT 02/23/2024 3:01 PM MATTRESS RENOVATOR Neutropenia, unspecified type COMPREHENSIVE METABOLIC PANEL STAT 02/23/2024 3:01 PM MATTRESS RENOVATOR Neutropenia, unspecified type CBC W AUTO DIFFERENTIAL STAT 02/23/2024 3:01 PM MATTRESS RENOVATOR Neutropenia, unspecified type HIV-1 HIV-2 ANTIBODY + HIV P24 AG PANEL Routine 09/10/2021 3:11 PM CDT Leukopenia, unspecified type from Last 3 Months or Most Recently Relevant to Health Maintenance Results * US Abdomen Limited (05/13/2024 10:29 AM CDT) Anatomical Region Laterality Modality Abdomen Ultrasound 05/13/2024 12:1 3 PM CDT Narrative 05/13/2024 12:15 PM CDT PROCEDURE: US ABDOMEN LIMITED DATE/TIME OF EXAM: 05/13/2024 10:29 AM CLINICAL INFORMATION: None relevant/not provided if blank. Indication: R16.1: Splenomegaly Additional History: COMPARISON: None. TECHNIQUE: Real-time ultrasound of the upper abdomen for evaluation of splenic size was performed with DICOM image capture performed by mining engineering technologist. FINDINGS: Spleen is enlarged and measures 15.8 x 6.2 x 8.0 cm. No focal lesions identified. Color Doppler examination shows normal flow pattern. > Interpreting Provider: Roderick Osei MD on 05/13/2024 12:15 PM Procedure Note Roderick Osei MD - 05/13/2024 PROCEDURE: US ABDOMEN LIMITED DATE/TIME OF EXAM: 05/13/2024 10:29 AM CLINICAL INFORMATION: None relevant/not provided if blank. Indication: R16.1: Splenomegaly Additional History: COMPARISON: None. TECHNIQUE: Real-time ultrasound of the upper abdomen for evaluation of splenic size was performed with DICOM image capture performed byultrasound technologist. FINDINGS: Spleen is enlarged and measures 15.8 x 6.2 x 8.0 cm. No focal lesions identified. Color Doppler examination shows normal flow pattern. > Interpreting Provider: Roderick Osei MD on 2:15 PM d Sohan Villarreal MD US ORDERABLES * (ABNORMAL) CBC W/ DIFFERENTIAL (04/19/2024 1:16 PM MATTRESS RENOVATOR) Only the most recent of2 resultswithin the time period is included. WBC 7.6 4.0 - 10.7 x10E9/L 04/19/2024 1:42 PM MATTRESS RENOVATOR [facility] RBC Count 5.08 4.30 - 5.80 x10E12/L 04/19/2024 1:42 PM [facility] Hemoglobin 15.4 13.3 - 17.5 g/dL 04/19/2024 1:42 PM [facility] Hematocrit 43.5 38.7 - 51.1 % 04/19/2024 1:42 PM [facility] MCV 85.6 80.0 - 98.0 fL 04/19/2024 1:42 PM [facility] MCH 30.3 26.7 - 33.6 pg 04/19/2024 1:42 PM [facility] MCHC 35.4 31.7 - 36.3 g/dL 04/19/2024 1:42 PM [facility] RDW-CV 12.4 11.3 - 14.8 % 04/19/2024 1:42 PM [facility] Platelet Count 67(L) 150 - 420 x10E9/L 04/19/2024 1:42 PM [facility] MPV 04/19/2024 1:42 PM [facility] Comment:Unable to report Neutrophil % 71.3 41.0 - 74.0 % 04/19/2024 1:42 PM [facility] Lymphocyte % 18.6 17.0 - 47.0 % 04/19/2024 1:42 PM [facility] Monocyte % 7.1 3.0 - 11.0 % 04/19/2024 1:42 PM [facility] Eosinophil % 1.4 0.0 - 7.0 % 04/19/2024 1:42 PM [facility] Basophil % 0.7 0.0 - 1.6 % 04/19/2024 1:42 PM [facility] Immature Granulocytes % 0.9 0.0 - 1.0 % 04/19/2024 1:42 PM [facility] Neutrophil Absolute 5.43 1.60 - 7.50 x10E9/L 04/19/2024 1:42 PM [facility] Lymphocyte Absolute 1.42 1.00 - 4.40 x10E9/L 04/19/2024 1:42 PM [facility] Monocyte Absolute 0.54 0.15 - 1.00 x10E9/L 04/19/2024 1:42 PM [facility] Eosinophil Absolute 0.11 0.00 - 0.60 x10E9/L 04/19/2024 1:42 PM [facility] Basophil Absolute 0.05 0.00 - 0.13 x10E9/L 04/19/2024 1:42 PM [facility] Blood BLOOD SPECIMEN / Unknown Lab Venipuncture / Unknown 04/19/2024 1:16 PM MATTRESS RENOVATOR 04/19/2024 1:21 PM MATTRESS RENOVATOR Mhd Sohan Villarreal MD LAB - HEMATOLOGY ORD ERABLES [facility] [address] [place] [address], [facility] [phone] * (ABNORMAL) COMPREHENSIVE METABOLIC PANEL (04/19/2024 1:16 PM MATTRESS RENOVATOR) Only the most recent of2 resultswithin the time period is included. BUN 11 7 - 26 mg/dL 04/19/2024 1:47 PM [facility] Creatinine 0.93 0.71 - 1.16 mg/dL 04/19/2024 1:47 PM [facility] Sodium 141 136 - 145 mmol/L 04/19/2024 1:47 PM [facility] Potassium 4.3 3.5 - 4.5 mmol/L 04/19/2024 1:47 PM [facility] Chloride 105 98 - 107 mmol/L 04/19/2024 1:47 PM [facility] CO2 28 22 - 29 mmol/L 04/19/2024 1:47 PM [facility] Glucose 94 70 - 99 mg/dL 04/19/2024 1:47 PM [facility] Calcium 9.3 8.4 - 10.2 mg/dL 04/19/2024 1:47 PM [facility] Protein Total 7.2 6.0 - 8.3 g/dL 04/19/2024 1:47 PM [facility] Albumin 4.5 3.4 - 5.0 g/dL 04/19/2024 1:47 PM [facility] Bilirubin Total 1.4(H) 0.2 - 1.2 mg/dL 04/19/2024 1:47 PM [facility] Alkaline Phosphatase 60 40 - 150 U/L 04/19/2024 1:47 PM [facility] ALT 40 5 - 55 U/L 04/19/2024 1:47 PM [facility] AST 18 5 - 34 U/L 04/19/2024 1:47 PM [facility] Anion Gap 8 6 - 16 04/19/2024 1:47 PM [facility] BUN/Creatinine Ratio 12 7 - 23 04/19/2024 1:47 PM [facility] Osmolality Calculated 291 275 - 295 mOsm/kg 04/19/2024 1:47 PM [facility] Albumin/Globulin Ratio 1.7 1.1 - 2.3 04/19/2024 1:47 PM [facility] eGFR by CKD-EPI >90 >=90 mL/min/1.7 3 m2 04/19/2024 1:47 PM [facility] Blood BLOOD SPECIMEN / Unknown Lab Venipuncture / Unknown 04/19/2024 1:16 PM MATTRESS RENOVATOR 04/19/2024 1:21 PM MATTRESS RENOVATOR Jazlyn Villarreal MD LAB - CHEMISTRY ORDLeighann LINARES [address] [address], [facility] [phone] * PHOSPHORUS BLOOD (04/19/2024 1:16 PM MATTRESS RENOVATOR) Only the most recent of2 resultswithin the time period is included. Phosphorus 4.4 2.8 - 5.1 mg/dL 04/19/2024 1:47 PM [facility] Blood BLOOD SPECIMEN / Unknown Lab Venipuncture / Unknown 04/19/2024 1:16 PM MATTRESS RENOVATOR 04/19/2024 1:21 PM MATTRESS RENOVATOR Jazlyn Villarreal MD LAB - CHEMISTRY MYA LINARES [address] [address], [place] [phone] * MAGNESIUM BLOOD (04/19/2024 1:16 PM MATTRESS RENOVATOR) Only the most recent of2 resultswithin the time period is included. Magnesium 2.0 1.6 - 2.6 mg/dL 04/19/2024 1:47 PM [facility] Blood BLOOD SPECIMEN / Unknown Lab Venipuncture / Unknown 04/19/2024 1:16 PM MATTRESS RENOVATOR 04/19/2024 1:21 PM MATTRESS RENOVATOR Mhd Sohan Villarreal MD LAB - CHEMISTRY YMA LINARES [facility] [address] [place] [phone], [facility] [phone] * (ABNORMAL) DIFFERENTIAL MANUAL (02/23/2024 3:01 PM MATTRESS RENOVATOR) Neutrophil % 20(L) 41 - 74 % 02/23/2024 3:47 PM [facility] Lymphocyte % 58(H) 17 - 47 % 02/23/2024 3:47 PM [facility] Monocyte % 17(H) 3 - 11 % 02/23/2024 3:47 PM [facility] Eosinophil % 3 0 - 7 % 02/23/2024 3:47 PM [facility] Basophil % 1 0 - 2 % 02/23/2024 3:47 PM [facility] Metamyelocyte % 1(H) 0% % 3:47 PM [facility] Neutrophil Absolute 0.84(L) 1.60 - 7.50 x10E9/L 02/23/2024 3:47 PM [facility] Lymphocyte Absolute 2.44 1.00 - 4.40 x10E9/L 02/23/2024 3:47 PM [facility] Monocyte Absolute 0.71 0.15 - 1.00 x10E9/L 02/23/2024 3:47 PM [facility] Eosinophil Absolute 0.13 0.00 - 0.60 x10E9/L 02/23/2024 3:47 PM [facility] Basophil Absolute 0.04 0.00 - 0.13 x10E9/L 02/23/2024 3:47 PM MATTRESS RENOVATOR [facility] RBC Morphology REVIEWED 02/23/2024 3:47 PM MATTRESS RENOVATOR [facility] Microcytosis MANY(A) (none) 02/23/2024 3:47 PM [facility] Polychromatic Cells MODERATE(A) (none) 02/23/2024 3:47 PM MATTRESS RENOVATOR [facility] Blood BLOOD SPECIMEN / Unknown Lab Venipuncture / Unknown 02/23/2024 3:01 PM MATTRESS RENOVATOR 02/23/2024 3:12 PM MATTRESS RENOVATOR Jazlyn Villarreal MD LAB - HEMATOLOGY ORD PRATIK Performing Organization Address City/[facility]/ZIP Co de Phone Number [address] [phone], [facility] [phone] * HIV-1 HIV-2 ANTIBODY + HIV P24 AG PANEL (09/10/2021 3:11 PM CDT) HIV Antigen/Antibod y 1 & 2 Non-reacti ve Non-react juan m 09/10/2021 4:44 PM CDT [facility] Comment:No Laboratory eviden ce of HIV infection. Blood BLOOD SPECIMEN / Unknown Lab Venipuncture / Unknown 09/10/2021 3:11 PM CDT 09/10/2021 3:28 PM CDT Jazlyn Villarreal MD LAB - CHEMISTRY MYA LINARES Performing Organization Address City/[facility]/ZIP Co de Phone Number [facility] [address] [place] [phone], [place] [phone] from Last 3 Months or Most Recently Relevant to Health Maintenance Care Teams Leach Runner Relationship Specialty Start Date End Date Lucila King MD [facility] [place] [phone] PCP - General 02/27/22 Mukesh Maldonado MD [place] [address] Allergy and Immunology 08/30/19 Jazlyn Villarreal MD [address] [place] [address] Hospice Team Lead/Oncologist Hematology and Oncology 09/15/19
--- OUTSIDE RECORDS SUMMARY | 2024-05-23 16:59 | XMS_ITS | Clinical Summary ---
Author Organization [facility] Address [address] [place] [address] Care Team Providers Care Sawmilling Operator Name Role Phone Stella Mcneill NP Primary Care Provider [phone] Allergies Active Allergy Reactions Criticality Noted Date Comments Sulfa (Sulfonamide Antibiotics) Vancomycin Itching,Other (See comments),Redness Low 02/12/2023 Medications acetaminophen (TylenoL) 325 mg capsule Take 1 capsule (325 mg total) by mouth as needed Active albuterol HFA (Ventolin HFA) 90 mcg/actuation inhaler Inhale 2 puffs Activ e amoxicillin-clavul anate (AUGMENTIN) 875-125 mg per tablet Take 1 tablet by mouth every 12 (twelve) hours 3 Active atorvastatin (LIPITOR) 20 mg tablet Take 1 tablet every day by oral route for 90 days. Active budesonide-formote roL (SYMBICORT) 160-4.5 mcg/actuation inhaler Inhale 2 puffs 2 (two) times a day Active cyclobenzaprine (FLEXERIL) 10 mg tablet Take 1 tablet (10 mg total) by mouth 3 (three) times a day as needed Active fluconazole (DIFLUCAN) 200 mg tablet TAKE 2 TABLETS BY MOUTH ONCE DAILY WHEN ABSOLUTE NEUTROPHIL COUNT IS LESS THAN 500 3 Active levothyroxine (SYNTHROID) 137 mcg tablet one tablet daily x 90 day Active levoFLOXacin (LEVAQUIN) 500 mg tablet Take 1 tablet (500 mg total) by mouth daily 3 Active loratadine (CLARITIN) 10 mg tablet Take 1 tablet (10 mg total) by mouth daily 8 Active montelukast (SINGULAIR) 10 mg tablet Take 1 tablet (10 mg total) by mouth every evening 8 Active nortriptyline (PAMELOR) 10 mg capsule Take by mouth nightly as needed 3 Active losartan (COZAAR) 50 mg tablet Take 1 tablet (50 mg total) by mouth daily Active bran/gum/fib/monie/p catia/kelp/pec (FIBER 6 ORAL) Take by mouth A ctive docusate sodium (STOOL SOFTENER ORAL) Take by mouth Active polyethylene glycol 3350 (MIRALAX ORAL) Take by mouth A ctive ondansetron ODT (ZOFRAN-ODT) 4 mg disintegrating tablet Take 1 tablet (4 mg total) by mouth every 6 (six) hours as needed 4 Active Active Problems Problem Noted Date Diagnosed Date Hematochezia 11/10/2023 Vomiting 11/10/2023 Chemotherapy-induced neutropenia 05/12/2023 Contact dermatitis 04/07/2023 Neutropenia 04/07/2023 Overview (11/10/2023): unspecifiied Acute left otitis media 02/17/2023 Insomnia 02/17/2023 Irritable bowel syndrome 02/17/2023 Anxiety 02/08/2023 Perianal fissure 02/06/2023 Essential hypertension 02/02/2023 Acute pharyngitis 01/07/2023 Wound of skin 01/01/2023 Arthralgia of right knee 11/18/2022 Decreased testosterone level 11/18/2022 Allergic rhinitis 10/13/2022 Lesion of neck 08/29/2022 Spasm 06/13/2022 Rectal abscess 05/20/2022 Perianal abscess 04/23/2022 COVID-19 04/06/2022 Fatigue 01/23/2022 Cough 01/12/2022 Dyspnea on exertion 01/12/2022 Periodic limb movement disorder 01/12/2022 Hidradenitis suppurativa 02/06/2021 Ingrown toenail of left foot 12/11/2020 Obstructive sleep apnea syndrome 02/02/2020 Gastroesophageal reflux disease without esophagi tis 01/09/2020 Vitamin D deficiency 03/27/2019 Splenomegaly 11/03/2018 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 Dietary/exercise counseling provided 2. Fasting serum biochemistries 3. Follow up by telephone with family after screening studies completed. Thyroid activity decreased 03/27/2014 Morbid obesity 03/24/2014 Immunizations Immunization Administration Dates Next Due DTaP 06/06/2004, 1,06/15/1999,04/13,02/07/1999 HPV, Quadrivalent 03/17/2014,10/17/2013 HPV9 12/05/2014 Hep A, Ped Unspecified 07/26/2010 Hep A, Pediatric 06/06/2004 Hep B, Adolescent or Pediatric 08/05/2001,2000,09/12/1999 HiB 05/13/2000, 0,04/13/1999,02/07 IPV 06/07/2004, 1,05/12/1999,04/13,02/07/1999 Influenza, Quadrivalent, Spl it, Intramuscular 01/10/2020 Influenza, Quadrivalent, Spl it, Preservative Free, Intramuscular 03/16/2019,01/24/2016,12/05/2014,11/24,12/13/2012 Influenza, Split 11/20/2009,11/02/2008, 8 Influenza, Trivalent, IM (MDV) 11/18/2010 Influenza, Trivalent, Preser vative Free, Intramuscular 2011 Influenza, Unspecified 12/25/2019,01/20/2006 MMR 06/06/2004,05/13/2000 Meningococcal Conjugate (Menveo) 07/26/2010 Pneumococcal Conjugate 7-Valent 05/13/2000 Pneumococcal Polysaccharide PPV23 01/10/2020, Tdap 10/18/2009 Varicella 09/01/2006,01/09/2000 Surgical History Surgery Date Site/Laterality Comments INCISION AND DRAINAGE 02/23/2021 - 02/22/2022 COLONOSCOPY 02/23/2021 - 02/22/2022 ESOPHAGOGASTRODUODENOSCOPY 02/23/2021 - 02/22/2022 Medical History Medical History Date Comments Anxiety Lipid disorder Thyroid disease Hypertension Asthma Sleep apnea Hidradenitis Family History Medical History Relation Name Comments No Known Problems Father Colon polyps Mother Diabetes Mother Family history of diabetes mellitus - (Added by TW Conv) Relation Name Status Comments Father Mother Social History Tobacco Use Types Packs/Day Years Used Date Smoking Tobacco: Never Smokeless Tobacco: Never AUDIT-C Answer Date Recorded Q1: How often do you have a drink containing alcohol? Never 06/11/2023 Q2: How many drinks containi ng alcohol do you have on a typical day when you are drinking? Patient does not drink Q3: How often do you have si x or more drinks on one occasion? Never 06/11/2023 Personal Safety Answer Date Recorded Getting School Help Needed Not on file 02/02 Sex and Gender Information Value Date Recorded Sex Assigned at Not on file Legal Sex Male 5:45 AM DRUM PULLER Gender Identity Male 06/05/2023 9:33 AM CDT Sexual Orientation Not on file Obstetrics History Last Filed Vital Signs Vital Sign Reading Time Taken Comments Blood Pressure 144/86 12/23/2023 1:11 PM CDT Pulse 90 12/23/2023 1:11 PM CDT Temperature 36.5 C (97.7 F) 03/19/2023 1:33 PM DRUM PULLER Respiratory Rate - - Oxygen Saturation 96% 12/23/2023 1:11 PM CDT Inhaled Oxygen Concentration - - Weight 122.9 kg (271 lb) 12/23/2023 1:11 PM CDT Height 180.3 cm (5' 11 ) 12/23/2023 1:11 PM CDT Body Mass Index 37.8 12/23/2023 1:11 PM CDT Plan of Treatment Health Maintenance Due Date Last Done Comments Depression Screening 2000 Hepatitis C Screening 2000 Regular Well Visit/Exam 18-64 2016 Zoster Vaccine (1 of 2) 2017 DTaP/Tdap/Td Vaccine (7 - Td or Tdap) 10/19/2019 10/18/2009, 06/06/2004, 05/13/2000, Additional history exists Covid-19 Vaccine (2 - Pfizer risk series) 10/30/2020 10/09/2020 Influenza Vaccine (#1) 2023 , 12/25/2019, 03/16/2019, Additional history exists Pneumococcal vaccine <65 (3 of 3 - PCV20 or PCV21) 2048 01/10/2020, 11/06/2019, 05/13/2000 Hepatitis B Screening Completed 08/05/2001 , 06/17/2000, 09/12/1999 Varicella Vaccines Completed 09/01/2006, 01/09/2000 HPV Vaccines Completed 12/05/2014, 02/24, 10/17/2013 Insurance [facility] MEDICARE MEDICARE [facility] Address: [address] [address] [place] [address] IDPA Care Teams Sawmilling Operator Relationship Specialty Start Date End Date Stella Mcneill NP [facility] [place] [address] PCP - General Nurse Practitioner 11/17/23
--- OUTSIDE RECORDS SUMMARY | 2024-05-23 16:59 | XMS_ITS | Encounter Summary ---
Author Organization [facility] Address [facility] [place] [address] Care Team Providers Care Quality Nurse Name Role Phone Stella Mcneill Primary Care Provider + Mukesh Maldonado MD Unavailable [phone] Jazlyn Villarreal MD Unavailable [phone] Lucila King MD Primary Care Provider [phone] Reason for Visit * Reason Comments Refill Request Encounter Details Date Type Department Care Team ([facility] Contact Info) Description 11/10/2018 Refill [facility] - Endocrinology [address] [place] [address] Gerry Randhawa MD [address] [place] [address] Refill Request Social History Tobacco Use Types Packs/Day Years Used Date Smoking Tobacco: Passive Smo ke Exposure - Never Smoker Smokeless Tobacco: Never Alcohol Use Standard Drinks/Week Comments No 0 (1 standard drink = 0.6 oz pur e alcohol) Sex and Gender Information Value Date Recorded Sex Assigned at Not on file Gender Identity Not on file Sexual Orientation Not on file documented as of this encounter Plan of Treatment Upcoming Encounters Date Type Department Care Team (Late st Contact Info) Description 06/14/2024 12:30 PM CDT Appointment [facility] [address] [facility], [address] [place] [address] 06/14/2024 1:20 PM CDT Office Visit [facility] - Hematology/Oncology [address] [place] [address] Jazlyn Villarreal MD [address] [facility] [place] [place] [address] documented as of this encounter Visit Diagnoses Diagnosis Acquired hypothyroidism documented in this encounter Care Teams Quality Nurse Relationship Specialty Start Date End Date Stella McneillLANDON-DIRECTOR PRIVATE [address] [phone] PCP - General Nurse Practitioner 11/03/18 02/26/22 Lucila King MD [facility] [place] [phone] PCP - General 02/27/22 Mukesh Maldonado MD [address] [employer] [facility] [place] [address] Allergy and Immunology 08/30/19 Jazlyn Villarreal MD [address] [place] [address] [facility] Hematology and Oncology 09/15/19 documented as of this encounter
--- OUTSIDE RECORDS SUMMARY | 2024-05-23 16:59 | XMS_ITS | Clinical Summary ---
Author Organization [facility] Pardo Address [address] [place] [address] Care Team Providers Care Hospital Insurance Clerk Name Role Phone Unavailable Primary Care Provider Unavailabl e Allergies Active Allergy Reactions Criticality Noted Date Comments Sulfa (Sulfonamide Antibiotics) Hives High 12/24 Vancomycin Itching Low 02/12/2023 Medications atorvastatin (LIPITOR) 20 mg tablet Take 20 mg by mouth daily. Active budesonide-formo teroL (SYMBICORT) 160-4.5 mcg/actuation HFA Aerosol Inhaler Take 2 Puffs by inhalation 2 times daily. Active levothyroxine 137 mcg tablet Take 137 mcg by mouth daily. Active pantoprazole (PROTONIX) 40 mg Tablet, Delayed Release (E.C.) Take 40 mg by mouth daily. Active tbo-filgrastim (GRANIX) 480 mcg/0.8 mL Syringe subcutaneous syringe Inject 480 mcg by subcutaneous injection. 4 Active montelukast (SINGULAIR) 10 mg tablet Take 10 mg by mouth daily at bedtime. Active Loratadine 5 mg Tablet, Rapid Dissolve Take 10 mg by mouth. Active ergocalciferol (VITAMIN D2) 50,000 unit capsule Take 50,000 Units by mouth every 7 days. supp Active busPIRone (BUSPAR) 10 mg tablet Take 1 Tablet by mouth 2 times daily. 4 Active honey (MediHoney, honey,) 80 % Gel Apply to affected area 2 times daily. 44 mL 2 4 Active Zinc-Ascorbic Acid-Pyridoxine 12-60-0.5 mg Lozenge Active polyethylene glycol 3350 (MIRALAX) 17 gram/dose Powder Take by mouth. Active ondansetron (ZOFRAN ODT) 4 mg Tablet, Rapid Dissolve DISSOLVE 1 TABLET ON THE TONGUE EVERY 6 HOURS NEEDED FOR NAUSEA AND VOMITING. Active fluconazole (DIFLUCAN) 200 mg tablet TAKE 2 TABLETS BY MOUTH ONCE DAILY WHEN ABSOLUTE NEUTROPHIL COUNT IS LESS THAN 500 4 Active dexAMETHasone (DECADRON) 1 mg Tablet TAKE 1 TABLET BY MOUTH AT 10 PM NIGHT BEFORE 8 AM CORTISOL FOR 1 DAY Active ibuprofen (MOTRIN) 800 mg tablet take 1 tablet by mouth three times daily with food 4 Active levoFLOXacin (LEVAQUIN) 500 mg tablet Take 1 Tablet by mouth daily. Active LORazepam (ATIVAN) 0.5 mg tablet TAKE 1 TABLET BY MOUTH DAILY NEEDED FOR PANIC ATTACKS Active Hospital, Clinic, or Other Facility Administered Medication Ordered Dose Route Frequency Start Date End Date Status honey (MEDIHONEY) 80 % topical gelIndications:Anal fistula Topical SEE ADMIN INSTRUCTIONS 02/18/2024 Active Active Problems No known active problems Encounters Date Type Department Care Team Description 05/11/2024 External Device Data STL ABSTRACTION Provider, Abstract 04/19/2024 External Device Data STL ABSTRACTION Provider, Abstract 04/13/2024 External Device Data STL ABSTRACTION Provider, Abstract 03/17/2024 11:00 AM PLANER SETUP OPERATOR Office Visit [facility] [place] [address] [address] Lorena Villanueva PA-C Anal fistula (Primary Dx); Postoperative visit 03/16/2024 External Device Data STL ABSTRACTION Provider, Abstract 03/16/2024 External Device Data STL ABSTRACTION Provider, Abstract 02/23/2024 Orders Only [facility] [place] [address] [facility] [address] [place] [address] Awais Rowell MD from Last 3 Months Family History Medical History Relation Name Comments No Known Problems Brother No Known Problems Father Anemia Mother Heart Disease Mother Hyperlipidemia Mother Hypertension Mother Relation Name Status Comments Brother Alive Father Alive Mother Alive Social History Tobacco Use Types Packs/Day Years Used Date Smoking Tobacco: Never Tobacco Cessation:Counseling Given: Not Answered Alcohol Use Standard Drinks/Week Comments Not Currently 0 (1 standard drink = 0.6 oz pur e alcohol) Sex and Gender Information Value Date Recorded Sex Assigned at Not on file Legal Sex Male 11:59 AM CDT Gender Identity Not on file Sexual Orientation Not on file Last Filed Vital Signs Vital Sign Reading Time Taken Comments Blood Pressure 115/80 03/17/2024 11:16 AM PLANER SETUP OPERATOR Pulse 82 02/03/2024 10:29 AM PLANER SETUP OPERATOR Temperature 36.6 C (97.8 F) 02/03/2024 10:29 AM PLANER SETUP OPERATOR Respiratory Rate 16 02/03/2024 10:29 AM PLANER SETUP OPERATOR Oxygen Saturation 100% 02/03/2024 10:29 AM PLANER SETUP OPERATOR Inhaled Oxygen Concentration - - Weight 124.7 kg (275 lb) 03/17/2024 11:16 AM PLANER SETUP OPERATOR Height 180.3 cm (5' 11 ) 03/17/2024 11:16 AM PLANER SETUP OPERATOR Body Mass Index 38.35 03/17/2024 11:16 AM PLANER SETUP OPERATOR Plan of Treatment Health Maintenance Due Date Last Done Comments DTAP/TDAP/TD VACCINES (7 - T d or Tdap) 10/19/2019 10/18/2009, 06/06/2004, 05/13/2000, Additional history exists INFLUENZA VACCINE (#1) 2023 , 03/16/2019, 01/24/2016, Additional history exists HEPATITIS B VACCINES Completed 08/05/2001, 06/17/2000, 09/12/1999 HPV VACCINES Completed 12/05/2014, 02/24, 10/17/2013 Medical Devices Implanted Type Area Business Services Manager Device Identifier Shelf Expiration Date Model / Serial / Lot Hemostatic Surgifoam [id number] - [id number] Implanted:Qty : 1 on 02/03/2024 by Awais Rowell MD at [facility] Hemostatic N/A: Perianal [employer] [id number] 12/03/20271973 / [id number] Insurance MEDICARE PART [place] Member Subscriber Plan / Payer (Ef fective 2023-Present) Name:Bob Byrd Relation to Subscriber:Self Name:Bob Byrd Payer ID:Not on file Group ID:Not on file Type:Medicaid Address: [place] [id number] [email or web address] Medicare Part D
--- OUTSIDE RECORDS SUMMARY | 2024-05-23 16:59 | XMS_ITS ---
Author Organization [facility] Address [address] [place] [address] Care Team Providers Care Manager Welding Name Role Phone Susan Baeza Primary Care Provider REASON FOR VISIT f/u alex Encounters Encounter Location Date Provider Diagnosis [facility] - Susan Baeza [address] [place] [address] 04/01/2024 Susan Baeza Plan Of Treatment No Information Progress Notes * Diego BYRDKatelynOB:2000 ( 23 yo M)Acc No.[id number]:04/01/2024 Progress Notes Patient: Bob PINEDA Provider: Anupama Baeza MD :2000 A ge:23 Y S ex:Male Date:04/01/2024 Address[facility] Subjective: * Chief Complaints: * 1 . F/u alex. * Medical History: Objective: * Vitals: Assessment: Plan: * Treatment: * Billing Information: * Visit Code: * Procedure Codes: * Electronic signature of Kevyn Baeza MD on 05/23/2024 at 04:59 PM CDT Sign off status: Pending * Provider: Anupama Baeza MD Date: 0 04/01/2024 Generated for Jordani ng/Fafrankieg/eTransmitting on: 0 05/23/2024 04:59 PM CDT
--- OUTSIDE RECORDS SUMMARY | 2024-05-23 16:59 | XMS_ITS | Referral Summary ---
Author Organization [facility] Address [address] [place] [address] Care Team Providers Care Boatbuilder Apprentice Wood Name Role Phone Stella Mcneill NP Primary Care Provider [phone] Allergies Active Allergy Reactions Criticality Noted Date [...] Polysaccharide PPV23 01/10/2020, Tdap 10/18/2009 Varicella 09/01/2006,01/09/2000 Social History Tobacco Use Types Packs/Day Years [...] on file Legal Sex Male 5:45 AM MULESER Gender Identity Male 06/05/2023 9:33 AM CDT Sexual Orientation Not on file Last Filed Vital Signs Vital Sign Reading Time Taken Comments Blood Pressure 144/86 12/23/2023 1:11 PM CDT Pulse 90 12/23/2023 1:11 PM CDT Temperature 36.5 C (97.7 F) 03/19/2023 1:33 PM MULESER Respiratory Rate - - Oxygen Saturation 96% 12/23/2023 1:11 PM CDT Inhaled Oxygen Concentration - - Weight 122.9 kg (271 lb) 12/23/2023 1:11 PM CDT Height 180.3 cm (5' 11 ) 12/23/2023 1:11 PM CDT Body Mass Index 37.8 12/23/2023 1:11 PM CDT Plan of Treatment Not on file Insurance [facility] [place] [address] MEDICARE MEDICARE [facility] Care Teams Boatbuilder Apprentice Wood Relationship Specialty Start Date End Date Stella Mcneill NP [facility] [place] [address] PCP - General Nurse Practitioner 11/17/23
--- OUTSIDE RECORDS SUMMARY | 2024-05-23 16:59 | XMS_ITS | Clinical Summary ---
Author Organization [facility] Address [address] [place] [address] Care Team Providers Care Crap Game Box Person Name Role Phone Lucila Turner MD Primary Care Provider [phone] Allergies Active Allergy Reactions Criticality Noted Date Comments Sulfa Antibiotics Unknown,Hives Medium 01/08/2015 Medications montelukast (SINGULAIR) 10 MG tablet Take 1 tablet (10 mg total) by mouth nightly at bedtime. Active loratadine (CLARITIN) 10 MG tablet Take 1 tablet (10 mg total) by mouth daily. Active levothyroxine (SYNTHROID) 137 MCG tablet Take 1 tablet (137 mcg total) by mouth every morning. Active fluconazole (DIFLUCAN) 200 MG tablet Take 2 tablets (400 mg total) by mouth daily as needed (ANC < 500). 3 Active atorvastatin (LIPITOR) 20 MG tablet Take 1 tablet (20 mg total) by mouth daily. Active losartan (COZAAR) 50 MG tablet Take 1 tablet (50 mg total) by mouth daily. 3 Active cyclobenzaprine (FLEXERIL) 10 MG tablet Take 1 tablet (10 mg total) by mouth 3 (three) times daily as needed for Muscle Spasms. 3 Active pantoprazole EC (PROTONIX) 40 MG tablet Take 1 tablet (40 mg total) by mouth daily. Active albuterol (ACCUNEB) 0.63 MG/3ML nebulizer solution Take 3 mLs (0.63 mg total) by nebulization every 4 (four) hours as needed for Wheezing or Shortness of breath. Active albuterol sulfate HFA (VENTOLIN HFA) 108 (90 Base) MCG/ACT inhaler Take 2 puffs by mouth every 4 (four) hours as needed for Wheezing or Shortness of breath. Active budesonide-form oterol (SYMBICORT) 160-4.5 MCG/ACT inhaler Inhale 2 puffs into the lungs 2 (two) times daily. Active HYDROcodone-stephen taminophen (NORCO) 5-325 MG tabletIndicatio ns:Acute Pain < 7 Day Supply Take 1 tablet by mouth every 6 (six) hours as needed for Pain. Indications: Acute Pain < 7 Day Supply 10 tablet 3 Active Active Problems Problem Noted Date Diagnosed Date Perianal fissure 02/06/2023 Resolved Problems Problem Noted Date Diagnosed Date Resolved Date Perirectal abscess 02/05/2023 3 Social History Tobacco Use Types Packs/Day Years Used Date Smoking Tobacco: Never Smokeless Tobacco: Never Tobacco Cessation:Counseling Given: Not Answered [facility] Utilities Answer Date Recorded In the past 12 months has [employer], [employer], oil, or water [employer] threatened to shut off services in your home? No 02/06/2023 Humiliation, Afraid, Rape, and Kick questionnair e Answer Date Recorded Within the last year, have y ou been afraid of your partner or ex-partner? No 02/06/2023 Within the last year, have y ou been humiliated or emotionally abused in other ways by your partner or ex-partner? No Within the last year, have y ou been kicked, hit, slapped, or otherwise physically hurt by your partner or ex-partner? No 02/06/2023 Within the last year, have y ou been raped or forced to have any kind of sexual activity by your partner or ex-partner? No 02/06/2023 Social Connection and Isolat ion Panel [NHANES] Answer Date Recorded In a typical week, how many times do you talk on the phone with family, friends, or neighbors? Three times a week 02/06/2023 How often do you get togethe r with friends or relatives? More than three times a week 02/06/2023 How often do you attend [facility] or jehovah's witness services? More than 4 times per year 02/06/2023 Do you belong to any clubs o r organizations such as restorationist groups, unions, fraternal or athletic groups, or school groups? No 02/06/2023 How often do you attend meet ings of the clubs or organizations you belong to? Never 02/06/2023 Are you , , di vorced, , never , or living with a partner? Never 02/06/2023 AUDIT-C Answer Date Recorded Q1: How often do you have a drink containing alcohol? Never 02/06/2023 Q2: How many drinks containi ng alcohol do you have on a typical day when you are drinking? Patient does not drink Q3: How often do you have si x or more drinks on one occasion? Never 02/06/2023 Overall Financial Resource Strain (CARDIA) Answe r Date Recorded How hard is it for you to pa y for the very basics like food, housing, medical care, and heating? Not hard at all 02/06/2023 [facility] - Occupational Stress Questionnaire Answer Date Recorded Do you feel stress - tense, restless, nervous, or anxious, or unable to sleep at night because your mind is troubled all the time - these days? Not at all 02/06/2023 Exercise Vital Sign Answer Date Recorde d On average, how many days pe r week do you engage in moderate to strenuous exercise (like a brisk walk)? 4 days 02/06/2023 On average, how many minutes do you engage in exercise at this level? 30 min 02/06/2023 Hunger Vital Sign Answer Date Recorded Within the past 12 months, y ou worried that your food would run out before you got the money to buy more. Never true 02/07/20 23 Within the past 12 months, t he food you bought just didn't last and you didn't have money to get more. Never true 02/06/2023 PRAPARE - Transportation Answer Date Re corded In the past 12 months, has l ack of transportation kept you from medical appointments or from getting medications? No 01/23 In the past 12 months, has l ack of transportation kept you from meetings, work, or from getting things needed for daily living? No 02/06/2023 Housing Stability Vital Sign Answer Ramone e Recorded In the last 12 months, was t here a time when you were not able to pay the mortgage or rent on time? No 02/06/2023 In the last 12 months, how many places have you lived? 1 02/06/2023 In the last 12 months, was t here a time when you did not have a steady place to sleep or slept in a prison (including now)? No 02/06/2023 Sex and Gender Information Value Date Recorded Sex Assigned at Not on file Legal Sex Male 3:52 PM RAMP SERVICE AGENT Gender Identity Not on file Sexual Orientation Not on file Last Filed Vital Signs Vital Sign Reading Time Taken Comments Blood Pressure 126/74 02/07/2023 8:35 AM RAMP SERVICE AGENT Pulse 116 02/06/2023 1:00 PM RAMP SERVICE AGENT Temperature 36.1 C (97 F) 02/07/2023 6:21 AM RAMP SERVICE AGENT Respiratory Rate 20 02/06/2023 8:40 PM RAMP SERVICE AGENT Oxygen Saturation 95% 02/07/2023 8:35 AM RAMP SERVICE AGENT Inhaled Oxygen Concentration - - Weight 128.8 kg (284 lb) 02/05/2023 3:53 PM RAMP SERVICE AGENT Height 180.3 cm (5' 11 ) 02/05/2023 3:53 PM RAMP SERVICE AGENT Body Mass Index 39.61 02/05/2023 3:53 PM RAMP SERVICE AGENT Plan of Treatment Health Maintenance Due Date Last Done Comments Annual Physical 2001 Hepatitis C 2016 DTaP, Tdap and Td Vaccines (7 - Td or Tdap) 10/19/2019 10/18/2009, 06/06/2004, 05/13/2000, Additional history exists COVID-19 Vaccine ( season) 2023 10/09/2020 Hepatitis B Vaccines Completed 08/05/2001, 06/17/2000, 09/12/1999 Meningococcal Vaccine Aged Out 07/26/2010 No david gemma eligible based on patient's age to complete this topic HPV Vaccines Completed 12/05/2014, 02/24, 10/17/2013 Pneumococcal Vaccine: Pediatrics (0 to 5 Years) and At-Risk Patients (6 to 64 Years) Aged Out 01/10/2020, 11/06/2019, 05/13/2000 No longer eligible based on patient's age to complete this topic Meningococcal B Vaccine Aged Out No l onger eligible based on patient's age to complete this topic RSV Immunizations Under 20 Months Aged Out No longer eligible based on patient's age to complete this topic Insurance MEDICAID MEDICARE Advance Directives * Full Code (Latest Code Status on File) Date Activated Date Inactivated Comments 02/05/2023 10:43 PM 02/07/2023 1:35 PM Care Teams Crap Game Box Person Relationship Specialty Start Date End Date Lucila Turner MD [address] [place] [place] [address] PCP - General FAMILY PRACTICE 02/05/23
--- OUTSIDE RECORDS SUMMARY | 2024-05-23 17:00 | XMS_ITS ---
Author Organization [facility] Address [address] [place] [address] Care Team Providers Care Goodwill Ambassador Name Role Phone Susan Baeza Primary Care Provider [phone] REASON FOR VISIT 3 month follow up Encounters Encounter Location Date Provider Diagnosis [employer] [facility], [facility] - Susan Baeza [address] [place] [address] 03/21/2024 Susan Baeza Plan Of Treatment No Information Progress Notes * Diego BYRDKatelynOB:2000 ( 23 yo M)Acc No.[id number]:03/21/2024 Progress Notes Patient: Bob PINEDA Provider: Anupama Baeza MD :2000 A ge:23 Y S ex:Male Date:03/21/2024 [facility] Subjective: * Chief Complaints: * 1 . 3 month follow up. * Medical History: Objective: * Vitals: Assessment: Plan: * Treatment: * Billing Information: * Visit Code: * Procedure Codes: * Electronic signature of Kevyn Baeza MD on 05/23/2024 at 04:59 PM CDT Sign off status: Pending * Provider: Anupama Baeza MD Date: 0 03/21/2024 Generated for Jordani ng/Fajeannie/eTransmitting on: 0 05/23/2024 04:59 PM CDT
--- OUTSIDE RECORDS SUMMARY | 2024-05-23 17:00 | XMS_ITS ---
Author Organization [facility] Address [address] [place] [address] Care Team Providers Care Tax Services Manager Name Role Phone Susan Baeza Primary Care Provider REASON FOR VISIT f/u alex Encounters Encounter Location Date Provider Diagnosis [employer] [facility], [facility] - Susan Baeza [address] [place] [address] 04/25/2024 Susan Baeza Plan Of Treatment No Information Progress Notes * Diego BYRDKatelynOB:2000 ( 23 yo M)Acc No.[id number]:04/25/2024 Progress Notes Patient: Bob PINEDA Provider: Anupama Baeza MD :2000 A ge:23 Y S ex:Male Date:04/25/2024 [facility] Subjective: * Chief Complaints: * 1 . F/u alex. * Medical History: Objective: * Vitals: Assessment: Plan: * Treatment: * Billing Information: * Visit Code: * Procedure Codes: * Electronic signature of Kevyn Baeza MD on 05/23/2024 at 04:59 PM CDT Sign off status: Pending * Provider: Anupama Baeza MD Date: 04/25/2024 Generated for Jordani ng/Fafrankieg/eTransmitting on: 05/23/2024 04:59 PM CDT
--- OUTSIDE RECORDS SUMMARY | 2024-05-23 17:00 | XMS_ITS | Continuity of Care Document ---
Author Organization [facility] Address [address] [place] [address] [address] [place] [address] Phone Care Team Providers Care Airconditioning Plant Operator Name Role Phone Pauline Fall Unavailable Unavailable Procedures Procedure Date Visual Field Examination(s) Eye Exam, New Patient Refraction Advance Directives Directive Yes / No Effective Date File Name No Information Encounters Encounter Description Practice Location Reason(s) For Visit Diagnoses Date Provider Providers Copied on Encounter [facility], [address], [place], [place], [id number], [place] tel:[phone] [facility] [place] No Information [address] [facility] , [address], [place], [address], [place]. tel:[phone] Referring Provider: Pauline Jha, [address] [facility] [address] [facility] [address], [place], [place], [facility]. tel:[phone] Family History Family Member Type Diagnosis Age At Onset No Information Payers Payer name Insurance type Covered democrat ID Authoriza tion(s) Medicaid [facility] [id number] Social History Type Description Quantity Date Captured Comments Sex Male Smoking Status No Information Chief Complaint And Reason For Visit No Information Reason For Referral Reason For Referral No Information History Of Present Illness Encounter Date Complaint History Of Prese nt Illness No Information Functional Status Date Functional Assessmen t No Information Instructions Date Instruction Additional Infor mation No Information Assessments Type Assessment Date No Information Patient Care Teams Name Effective Dates (start - stop) Status Members No Information
== END 2024-05-23 15:28 | disposition home or self-care (01) ==
PROVIDERS: PCP Nurse Practitioner Adult Health; Visit Provider Internal Medicine Endocrinology, Diabetes & Metabolism
DX: E27.9 Disorder of adrenal gland, unspecified (principal)
CPT/HCPCS: 74150

== ENCOUNTER 2024-07-01 10:10 | Emergency (ER) | payer MEDICARE, MEDICAID, SELFPAY ==
--- NOTE | ~2024-07-01 | US_ITS ---
US scrotum doppler INDICATION: Left testicular pain TECHNIQUE: Testicular sonogram utilizing grayscale and color Doppler FINDINGS: The testes are normal in size and appearance. No focal lesions are seen. The right testes measures 3.7 x 2.7 x 3.4 cm centimeters, and the left testis measures 3.7 x 2.6 x 2.6 cm cm. There is normal vascular flow to both testes. Medial to the left testicle there is a hypoechoic mass measurin g 1.9 x 1.4 x 1 cm with internal cystic changes. No internal vascularity. The right and left epididymides appear normal. There are small hydroceles. There is a left varicocele. IMPRESSION: 1. Left varicocele. Small left extratesticular hypoechoic mass with internal cystic changes measurin g up to 1.9 cm likely contiguous with the varicocele. 2: Small hydroceles. Reviewed, dictated and finalized at location A. IMPRESSION: 1. Left varicocele. Small left extratesticular hypoechoic mass with internal c ystic changes measuring up to 1.9 cm likely contiguous with the varicocele. 2: Small hydroceles.
--- OUTSIDE RECORDS SUMMARY | 2024-07-01 10:13 | XMS_ITS | Encounter Summary ---
Author Organization [facility] Address [facility] [facility] [place] [address] Care Team Providers Care Food General Manager Name Role Phone Stella Mcneill Primary Care Provider + Mukesh Maldonado MD Unavailable [phone] Jazlyn Villarreal MD Unavailable Lucila King MD Primary Care Provider [phone] Stella [facility]ill [facility] Primary Care Provider + Reason for Visit * Reason Comments Refill Request Encounter Details Date Type Department Care Team (Late st Contact Info) Description 11/10/2018 Refill [facility] Pediatrics - Endocrinology [address] [place] [id number] Gerry Randhawa MD [address] [place] [phone] Refill Request Social History Tobacco Use Types Packs/Day Years Used Date Smoking Tobacco: Passive Smo ke Exposure - Never Smoker Smokeless Tobacco: Never Alcohol Use Standard Drinks/Week Comments No 0 (1 standard drink = 0.6 oz pur e alcohol) Sex and Gender Information Value Date Recorded Sex Assigned at Not on file Legal Sex Male 5:44 AM CASE FINISHER Gender Identity Not on file Sexual Orientation Not on file documented as of this encounter Plan of Treatment Upcoming Encounters Date Type Department Care Team (Late st Contact Info) Description 07/12/2024 2:20 PM CDT Office Visit [facility] - Hematology/Oncology [address] [place] [address] Jazlyn Villarreal MD [address] [facility] [place] [address] documented as of this encounter Visit Diagnoses Diagnosis Acquired hypothyroidism documented in this encounter Care Teams Food General Manager Relationship Specialty Start Date End Date Stella Mcneill APRN-[facility] [address] [phone] PCP - General Nurse Practitioner 11/03/18 02/26/22 Lucila King MD [facility] [place] [address] PCP - General 02/27/22 06/13/24 Stella Mcneill APRN-LACING OPERATOR Family Medicine [address] [address] PCP - General 06/14/24 Mukesh Maldonado MD [facility] [place] [address] Allergy and Immunology 08/30/19 Jazlyn Villarreal MD [address] [place] [address] Automatic Maintainer/Oncologis t Hematology and Oncology 09/15/19 documented as of this encounter
--- OUTSIDE RECORDS SUMMARY | 2024-07-01 10:13 | XMS_ITS | Patient Health Record ---
Author Organization [facility] Address [address] [address] Care Team Providers Care Roustabout Supervisor Name Role Phone Kevyn Baezan Primary Care Provider Migration, Provider Unavailable Unavailable Results Component Value Reference Range Notes COMPREHENSIVE METABOLIC PANE L Reviewed date:08/19/2023 10:09:54 AM Interpretation: Performing Lab:[facility], [address], [place], [address] Flo Echavarria Notes/Report: VITAMIN D, 25-HYDROXY, LC/MS /MS Reviewed date:08/19/2023 10:10:20 AM Interpretation: Performing Lab:Melissa [facility], [address] [place], [address] Flo Echavarria MD Notes/Report: ACTH, PLASMA Reviewed date:08/23/2023 09:01:47 PM Interpretation: Performing Lab:Melissa COBB/Say [facility], [address], [place], [address] Dudley Mendez M.D.,PhD Notes/Report: T3, FREE Reviewed date:08/19/2023 10:09:12 AM Interpretation: Performing Lab:Melissa [facility], [address] [place], [address] Flo Echavarria MD Notes/Report: CORTISOL, TOTAL Reviewed date:08/19/2023 10:09:24 AM Interpretation: Performing Lab:[facility], [address] [place], [address] Flo Echavarria MD Notes/Report: CBC (INCLUDES DIFF/PLT) Reviewed date:08/19/2023 10:09:36 AM Interpretation: Performing Lab:Melissa VASQUEZ, [address] [place], [address] Flo Echavarria Notes/Report: IRON AND TOTAL IRON BINDING CAPACITY Reviewed date:08/19/2023 10:08:02 AM Interpretation: Performing Lab:[facility], [address] [place], [place], [address] Flo Echavarria MD Notes/Report: T4, FREE Reviewed date:08/19/2023 10:09:18 AM Interpretation: Performing Lab:[facility], [address], [place], [address] Flo Echavarria MD Notes/Report: TSH Reviewed date:08/19/2023 10:09:06 AM Interpretation: Performing Lab:Melissa VASQUEZ, [address] [place], [address] Flo Echavarria Notes/Report: VITAMIN B12 Reviewed date:08/19/2023 10:10:01 AM Interpretation: Performing Lab:[facility], [address], [place], [address] Flo Echavarria MD Notes/Report: MAGNESIUM, RBC Reviewed date:08/23/2023 09:01:38 PM Interpretation: Performing Lab:Melissa LOMELI, [address] [place], [address] Luis Antonio Swift M.D. Notes/Report: MAGNESIUM, RBC 5.4 4.0-6.4 mg/dL This test was developed and its analytical performance characteristics have been determined by [email or web address]. It has not been cleared or approved by the FDA. This assay has been validated pursuant to the CLIA regulations and is used for clinical purposes. DEXAMETHASONE Reviewed date:11/29/2023 08:18:44 PM Interpretation: Performing Lab:Melissa DESHPANDE/Say [facility],, [address] [place], [address] Juliana Powell MD,PhD,ANGELLA Notes/Report: DEXAMETHASONE 215 Reference Ranges for Dexamethasone: Baseline: Less than 20 ng/dL 1 mg dexamethasone overnight: 180-550 ng/dL (8:00-10:00 AM) This test was developed and its analytical performance characteristics have been determined by [email or web address]. It has not been cleared or approved by FDA. This assay has been validated pursuant to the CLIA regulations and is used for clinical purposes. CORTISOL, TOTAL Reviewed date:11/22/2023 08:00:18 PM Interpretation: Performing Lab:Mel[facility], [address], [place], [address] Flo Echavarria MD Notes/Report: COMPREHENSIVE METABOLIC PANE L Reviewed date:12/09/2023 08:09:17 PM Interpretation: Performing Lab[facility], [address], [place], [address] Flo Echavarria Notes/Report: FASTING:YES FASTING: YES ACTH, PLASMA Reviewed date:12/14/2023 07:46:32 PM Interpretation: Performing Lab:Melissa COBB/[facility], [address] [facility] , [place], [address] Dudley Mendez M.D.,PhD Notes/Report: FASTING:YES FASTING: YES T3, FREE Reviewed date:12/11/2023 08:20:29 PM Interpretation: Performing Lab:Melissa [facility], [address], [place], [address] Flo Echavarria MD Notes/Report: FASTING:YES FASTING: YES CORTISOL, TOTAL Reviewed date:12/11/2023 08:20:53 PM Interpretation: Performing Lab:Melissa [facility]LEY[facility], [address], [place], [address] Flo Echavarria MD Notes/Report: FASTING:YES FASTING: YES DHEA SULFATE Reviewed date:12/11/2023 07:58:20 PM Interpretation: Performing Lab:Melissa [facility]LEY[facility], [address], [place], [address] Flo Echavarria MD Notes/Report: FASTING:YES FASTING: YES CBC (INCLUDES DIFF/PLT) Reviewed date:12/09/2023 08:11:18 PM Interpretation: Performing Lab:[facility], [address] [place], [address] [facility] Notes/Report: FASTING:YES FASTING: YES T4, FREE Reviewed date:12/09/2023 08:14:02 PM Interpretation: Performing Lab:[facility], [address] [place], [address] [facility] Notes/Report: FASTING:YES FASTING: YES TSH Reviewed date:12/09/2023 08:14:25 PM Interpretation: Performing Lab:[facility], [facility] [place], [address] [facility] Notes/Report: FASTING:YES FASTING: YES TESTOSTERONE, FREE (DIALYSIS ) AND TOTAL,MS Reviewed date:12/14/2023 07:46:24 PM Interpretation: Performing Lab:[facility], [facility], [address] [place] [address], [address], [place], [address] Ritika Cruz MD,PhD Notes/Report: FASTING:YES FASTING: YES TESTOSTERONE, TOTAL, MS [address] ng/dL Men with clinically significant hypogonadal symptoms and testosterone values repeatedly in the range of the 200-300 ng/dL or less, may benefit from testosterone treatment after adequate risk and benefits counseling. For additional information, please refer to https://education.Bababoo.com/faq/LVK147 (This link is being provided for informational/educational purposes only.) (Note) This test was developed and its analytical performance characteristics have been determined by [facility]. It has not been cleared or approved by the FDA. This assay has been validated pursuant to the CLIA regulations and is used for clinical purposes. TESTOSTERONE, FREE 63 35.0-155.0 pg/mL (Note) This test was developed and its analytical performance characteristics have been determined by [facility]. It has not been cleared or approved by the FDA. This assay has been validated pursuant to the CLIA regulations and is used for clinical purposes. [facility] [address] [place] [address],[address] [facility] [address] Ritika Cruz MD, PhD Reason For Referral No Information Medications Medication SIG (Take, Route, Fr equency, Duration) Notes Start Date End Date Status dexAMETHasone 1 MG 1 tab(s) orally once at 10 pm night before 8 am cortisol for 1 days 08/31/2023 Unknown busPIRone HCl 10 MG 1 tab(s) orally 2 ti mes a day for 90 days 12/15/2023 Active Euthyrox 100 MCG 1 tab(s) orally once a day for 90 days 08/31/2023 Unknown dexAMETHasone 1 MG 1 tab(s) orally at 1 0 pm night before 8 am cortisol for 1 days 12/15/2023 Active Problems Problem Type SNOMED Code ICD Code Onset Dates Problem Status W/U Status Risk Notes Problem Vitamin D deficiency (06428113) Vitamin D deficiency, unspecified (E55.9) Active confirmed Problem Hyperlipidemia (70751496) Hyperlipidemia, unspecified (E78.5) Active confirmed Problem Essential hypertension (35678199) Essential (primary) hypertension (I10) Active confirmed Problem Hypothyroidism (92446633) Hypothyroidism, unspecified (E03.9) Active confirmed Problem Obesity (275035974) Obesity, unspecified (E66.9) Active confirmed Problem Uncomplicated asthma (disorder) (423645354) Unspecified asthma, uncomplicated (J45.909) Active confirmed Problem Neutropenia (606522050) Neutropenia, unspecified (D70.9) Active confirmed Problem Disorder of adrenal gland (22642866) Disorder of adrenal gland, unspecified (E27.9) Active confirmed Problem Mixed hyperlipidemia (834941584) Mixed hyperlipidemia (E78.2) Active confirmed Problem Generalized anxiety disorder (21591401) Generalized anxiety disorder (F41.1) Active confirmed Problem Crohn's disease (23734419) Crohn's disease, unspecified, without complications (K50.90) Active confirmed Vital Signs Heart Rate 70 /min 12/15/2023 Respiratory Rate 12 /min 12/15/2023 Blood pressure diastolic 86 mm Hg 12/15/2023 Height 71 in 12/15/2023 Blood pressure systolic 134 mm Hg 12/15/2023 Weight 275 lbs 12/15/2023 BMI 38.35 kg/m2 12/15/2023 Encounters Encounter Location Date Provider Diagnosis [facility], [facility] [address] [place] [address] 04/25/2024 Susan [facility] [place] [address] [address] 01/09/2024 Provider Migration Generalized anxiety disorder F41.1 and Obesity, unspecified E66.9 [facility]- [address]. Mao [address] [place] [address] 08/14/2023 Susan Baeza [facility], [facility] - Susan Baeza [address] [place] [address] 08/31/2023 Susan Baeza [facility], [facility] - Susan [facility] [address] [place] [address] 11/05/2023 Susan Baeza [facility], [facility] - Susan [facility] [address] [place] [address] 2023 Susan [facility]O [employer] [facility] [address] [place] [address] 12/29/2023 Susan [facility], [facility] - Susan [facility] [address] [place] [address] 08/31/2023 Susan Baeza Hypothyroidism, unspecified E03.9 ; Other fatigue R53.83 and Abnormal weight gain R63.5 [facility], [facility] - Susan [facility]ference [address] [place] [address] 12/15/2023 Susan Baeza Hypothyroidism, unspecified E03.9 ; Generalized anxiety disorder F41.1 ; Obesity, unspecified E66.9 and Disorder of adrenal gland, unspecified E27.9 Assessments Encounter Date Diagnosis (ICD Code) Assessment Notes Treatment Notes Treatment Clinical Notes Section Notes 01/09/2024 Generalized anxiety disorder (ICD-10 - F41.1) 08/31/2023 Other fatigue (ICD-10 - R53.83) WIll send for thyroid antibodies to screen for autoimmune thyroid disease in adition to CBC, CMP, ferritin, vit D and B12/folate to screen for other potential secondary causes of fatigue. Along with testosterone level. 08/31/2023 Hypothyroidism, unspecified (ICD-10 - E03.9) 12/15/2023 Hypothyroidism, unspecified (ICD-10 - E03.9) 12/15/2023 Generalized anxiety disorder (ICD-10 - F41.1) 01/09/2024 Obesity, unspecified (ICD-10 - E66.9) 08/31/2023 Abnormal weight gain (ICD-10 - R63.5) Send for DST to screen for hypercortisolism. 12/15/2023 Obesity, unspecified (ICD-10 - E66.9) 12/15/2023 Disorder of adrenal gland, unspecified (ICD-10 - E27.9) 08/31/2023 Other Spent 25 minutes preparing to see the patient (ex review of tests/chart), obtaining and / or reviewing separately obtained history, performing a medically appropriate examination and/or evaluation, counseling and educating the patient/family/care program resident, ordering medications, tests, or procedures, referring and communicating with other health nonfarm animal caretaker, documenting clinical information in the electronic or other health record, independently interpreting results and communicating results to the patient/family/care program resident and care coordinating patient plan. Patient alert and oriented x 4 and aware of discussion noted above and in agreeance to plan in management of hypothyroidism, fatigue and weight changes. Due to the nature of telemedicine, the ability to do physical assessment was limited to what can be accomplished by patient directed telehealth visit based on instruction. Those limits are understood by the patient and myself. Impression is based on history, available information, and physical findings accomplished with telehealth visit. Chronic disease/problem list/ medication list reviewed and updated where indicated. Discussed diagnosis, plan including risks, benefits, and options of treatment. Advised to call for new, worsening, or persistent symptoms. Level of patient risk was of moderate complexity due to the documented nature of presentation, the information assessment required and the nature of the development of an evaluation and treatment plan as documented. PMH, FHx, SHx, Surgical Hx, Quality management review carried out and addressed as documented today as part of this visit. Medication list was reviewed and adjusted as indicated. Medication requiring a refill was addressed. Risk and benefits of any new medications were discussed and all questions were answered. 12/15/2023 Other Assessment and Plan: 1. Anxiety and panic attacks:- Continue lorazepam as needed from primary care provider- Start buspirone 10 mg twice daily for anxiety management- Monitor response to buspirone and adjust dosage if necessary- Encourage non-pharmacological anxiety management techniques (e.g., deep breathing exercises, relaxation techniques) 2. Adrenal function and cortisol levels:- Repeat DEXA suppression test to confirm results- Order 24-hour urine cortisol test and salivary cortisol test- Consider CT scan of adrenal glands if further testing indicates abnormalities- Monitor and follow up on test results to determine if further intervention is needed 3. Thyroid function:- Continue levothyroxine 100 mcg daily for hypothyroidism- Monitor T4 and T3 levels to ensure appropriate dosing 4. Vitamin B12 and vitamin D supplementation:- Continue current supplementation as prescribed- Monitor levels to ensure appropriate dosing 5. Seizure evaluation:- Follow up with ENT and epilepsy specialist in December- Monitor for any additional seizure activity or concerning symptoms 6. Weight management:- Encourage healthy diet and regular exercise- Monitor weight changes during follow-up visits 7. Follow-up:- Schedule follow-up appointment in 3 months to review blood work and discuss results of adrenal function tests and CT scan if per Spent 25 minutes preparing to see the patient (ex review of tests/chart), obtaining and / or reviewing separately obtained history, performing a medically appropriate examination and/or evaluation, counseling and educating the patient/family/care program resident, ordering medications, tests, or procedures, referring and communicating with other health nonfarm animal caretaker, documenting clinical information in the electronic or other health record, independently interpreting results and communicating results to the patient/family/care program resident and care coordinating patient plan. Patient alert and oriented x 4 and aware of discussion noted above and in agreeance to plan in management of hypothyroidism, concern for hypercortisolism, obesity/weight management and KENN. Due to the nature of telemedicine, the ability to do physical assessment was limited to what can be accomplished by patient directed telehealth visit based on instruction. Those limits are understood by the patient and myself. Impression is based on history, available information, and physical findings accomplished with telehealth visit. Chronic disease/problem list/ medication list reviewed and updated where indicated. Discussed diagnosis, plan including risks, benefits, and options of treatment. Advised to call for new, worsening, or persistent symptoms. Level of patient risk was of moderate complexity due to the documented nature of presentation, the information assessment required and the nature of the development of an evaluation and treatment plan as documented. PMH, FHx, SHx, Surgical Hx, Quality management review carried out and addressed as documented today as part of this visit. Medication list was reviewed and adjusted as indicated. Medication requiring a refill was addressed. Risk and benefits of any new medications were discussed and all questions were answered. Plan Of Treatment Pending Test Test Name Order Date CT adrenal gland W/WO 12/15/2023 Insurance Providers Payer Name Payer Address Payer Phone Subscriber Number Group Number Insured Name Patient Relationship to Insured Coverage Start Date Coverage End Date Medicare [address] [address] [place] [address] [id number] Bob Byrd Self - patient is the insured Medicaid [place] [address] [address] [place] [address] [id number] Bob Byrd Self - patient is the insured Medical (General) History Medical History History ICD Code Unspecified asthma, uncomplicated J45.90 9 Neutropenia, unspecified D70.9 Hypothyroidism, unspecified E03.9 Essential (primary) hypertension I10 Hyperlipidemia, unspecified E78.5
--- OUTSIDE RECORDS SUMMARY | 2024-07-01 10:13 | XMS_ITS | Referral Summary ---
Author Organization [facility] Address [address] [place] [address] Care Team Providers Care Exercise Teacher Name Role Phone Stella Mcneill NP Primary Care Provider [phone] Allergies Active Allergy Reactions Criticality Noted Date [...] on file Legal Sex Male 5:45 AM COLOR DEVELOPER Gender Identity Male 06/05/2023 9:33 AM CDT Sexual Orientation Not on file Last Filed Vital Signs Vital Sign Reading Time Taken Comments Blood Pressure 144/86 12/23/2023 1:11 PM CDT Pulse 90 12/23/2023 1:11 PM CDT Temperature 36.5 C (97.7 F) 03/19/2023 1:33 PM COLOR DEVELOPER Respiratory Rate - - Oxygen Saturation 96% 12/23/2023 1:11 PM CDT Inhaled Oxygen Concentration - - Weight 122.9 kg (271 lb) 12/23/2023 1:11 PM CDT Height 180.3 cm (5' 11 ) 12/23/2023 1:11 PM CDT Body Mass Index 37.8 12/23/2023 1:11 PM CDT Plan of Treatment Not on file Insurance [facility] MEDICARE MEDICARE [facility] Care Teams Exercise Teacher Relationship Specialty Start Date End Date Stella Mcneill NP [facility] [place] [address] PCP - General Nurse Practitioner 11/17/23
--- OUTSIDE RECORDS SUMMARY | 2024-07-01 10:13 | XMS_ITS ---
Author Organization [employer] [facility] Address [address] [place] [address] Care Team Providers Care Buoy Tender Name Role Phone Susan Baeza Primary Care Provider [phone] REASON FOR VISIT f/u alex Encounters Encounter Location Date Provider Diagnosis [facility], [employer] - Susan Baeza [address] [place] [address] 04/01/2024 Susan Baeza Plan Of Treatment No Information Progress Notes * Diego BYRDKatelynOB:2000 ( 23 yo M)Acc No.[id number]:04/01/2024 Progress Notes Patient: Bob PINEDA Provider: Anupama Baeza MD :2000 A ge:23 Y S ex:Male Date:04/01/2024 [facility] Subjective: * Chief Complaints: * 1 . F/u alex. * Medical History: Objective: * Vitals: Assessment: Plan: * Treatment: * Billing Information: * Visit Code: * Procedure Codes: * Electronic signature of Kevyn Baeza MD on 07/01/2024 at 10:13 AM CDT Sign off status: Pending * Provider: Anupama Baeza MD Date: 0 04/01/2024 Generated for Nicolas dolan/Mitra/eTransmitting on: 0 07/01/2024 10:13 AM CDT
--- OUTSIDE RECORDS SUMMARY | 2024-07-01 10:14 | XMS_ITS | CONTINUITY OF CARE DOCUMENT ---
Author Name corazon chandra Address Unknown Organization [facility] Address [address] [facility] [address] [place] [address] Phone [phone] Care Team Providers Care Electrical Contractor Name Role Phone Chad TSE, Zhao Unavailable [phone] Zhao Bonilla MD Unavailable INSURANCE PROVIDERS Payer name Policy type / Coverage type Mosca red alliance party ID [facility]CARE [facility] FAMILY SERVICES Medicaid 1 [id number] [place] MEDICARE Medicare [id number]
--- OUTSIDE RECORDS SUMMARY | 2024-07-01 10:14 | XMS_ITS | Encounter Summary ---
Author Organization [facility] Address [address] [place], [place] [address] [address] Care Team Providers Care International Relations Professor Name Role Phone Mukesh Maldonado MD Unavailable [phone] Jazlyn Villarreal MD Unavailable [phone] Stella Mcneill APRN-[facility] Primary Care Provider + Reason for Visit * Reason Comments Refill Request Encounter Details Date Type Department Care Team (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 Contact Info) Description 07/12/2024 2:20 PM CDT Office Visit [facility] - Hematology/Oncology [address] [place] [address] Jazlyn Villarreal MD [address] [facility]EMAT[facility] [place] [address] documented as of this encounter Visit Diagnoses Diagnosis Nausea and vomiting, unspecified vomiting type documented in this encounter Care Teams International Relations Professor Relationship Specialty Start Date End Date Stella Mcneill APRN-SAFETY CLOTHING AND EQUIPMENT DEVELOPER Family Medicine [address] [address] PCP - General 06/14/24 Mukesh Maldonado MD [address] [place] [address] [place] [address] Allergy and Immunology 08/30/19 Jazlyn Villarreal MD [address] [place] [address] Project Manager Finance/Oncologist Hematology and Oncology 09/15/19 documented as of this encounter
--- OUTSIDE RECORDS SUMMARY | 2024-07-01 10:14 | XMS_ITS | Clinical Summary ---
Author Organization [facility] Ashley Pardo Address [address] [place] [address] Care Team Providers Care Client Technologies Specialist Name Role Phone Unavailable Primary Care Provider [...] Encounters Date Type Department Care Team Description 06/07/2024 External Device Data ST[facility] ABSTRACTION Provider, Abstract 05/11/2024 External Device Data [facility] ABSTRACTION Provider, Abstract 04/19/2024 External Device Data [facility] ABSTRACTION Provider, Abstract 04/13/2024 External Device Data [facility] ABSTRACTION Provider, Abstract from Last 3 Months Family History Medical [...] Comments Blood Pressure 115/80 03/17/2024 11:16 AM WINDOW SHADE INSTALLER Pulse 82 02/03/2024 10:29 AM WINDOW SHADE INSTALLER Temperature 36.6 C (97.8 F) 02/03/2024 10:29 AM WINDOW SHADE INSTALLER Respiratory Rate 16 02/03/2024 10:29 AM WINDOW SHADE INSTALLER Oxygen Saturation 100% 02/03/2024 10:29 AM WINDOW SHADE INSTALLER Inhaled Oxygen Concentration - - Weight 124.7 kg (275 lb) 03/17/2024 11:16 AM WINDOW SHADE INSTALLER Height 180.3 cm (5' 11 ) 03/17/2024 11:16 AM WINDOW SHADE INSTALLER Body Mass Index 38.35 03/17/2024 11:16 AM WINDOW SHADE INSTALLER Plan of Treatment Health Maintenance Due Date Last Done Comments DTAP/TDAP/TD VACCINES (7 - T d or Tdap) 10/19/2019 10/18/2009, 06/06/2004, 05/13/2000, Additional history exists INFLUENZA VACCINE (#1) 2023 , 03/16/2019, 01/24/2016, Additional history exists HEPATITIS B VACCINES Completed 08/05/2001, 06/17/2000, 09/12/1999 HPV VACCINES Completed 12/05/2014, 02/24, 10/17/2013 Medical Devices Implanted Type Area Seal Delivery Vehicle Officer Device Identifier Shelf Expiration Date Model / Serial / Lot Hemostatic Surgifoam [id number] - [id number] Implanted:Qty : 1 on 02/03/2024 by Awais Rowell MD at [facility] Hemostatic N/A: Perianal [employer] [id number] 12/03/2027 1976 / / [id number] Insurance MEDICARE PART A [place] B [place] MED[place] B [place] [employer] Medicare Part D
--- OUTSIDE RECORDS SUMMARY | 2024-07-01 10:14 | XMS_ITS | Clinical Summary ---
Author Organization [facility] Address [address] [place] [address] Care Team Providers Care Supervisor Buffing And Pasting Name Role Phone Lucila Turner MD Primary Care Provider [phone] Allergies Active Allergy Reactions Criticality Noted Date [...] Tobacco: Never Tobacco Cessation:Counseling Given: Not Answered [facility] Utilities Answer Date Recorded In the past 12 months has [employer], [employer], oil, or water [employer] threatened to shut off services in your [...] How often do you attend [facility] or restoration services? More than 4 times per year 02/06/2023 Do you belong to any clubs o r organizations such as scientologist groups, unions, fraternal or athletic groups, or [...] and heating? Not hard at all 02/06/2023 [facility] - Occupational Stress [...] place to sleep or slept in a group home (including now)? No 02/06/2023 Sex and Gender Information Value Date Recorded Sex Assigned at Not on file Legal Sex Male 3:52 PM INJURY/SAFETY HAZARD ASSESSMENT Gender Identity Not on file Sexual Orientation Not on file Last Filed Vital Signs Vital Sign Reading Time Taken Comments Blood Pressure 126/74 02/07/2023 8:35 AM INJURY/SAFETY HAZARD ASSESSMENT Pulse 116 02/06/2023 1:00 PM INJURY/SAFETY HAZARD ASSESSMENT Temperature 36.1 C (97 F) 02/07/2023 6:21 AM INJURY/SAFETY HAZARD ASSESSMENT Respiratory Rate 20 02/06/2023 8:40 PM INJURY/SAFETY HAZARD ASSESSMENT Oxygen Saturation 95% 02/07/2023 8:35 AM INJURY/SAFETY HAZARD ASSESSMENT Inhaled Oxygen Concentration - - Weight 128.8 kg (284 lb) 02/05/2023 3:53 PM INJURY/SAFETY HAZARD ASSESSMENT Height 180.3 cm (5' 11 ) 02/05/2023 3:53 PM INJURY/SAFETY HAZARD ASSESSMENT Body Mass Index 39.61 02/05/2023 3:53 PM INJURY/SAFETY HAZARD ASSESSMENT Plan of Treatment Health Maintenance Due Date [...] 5 Years) and At-Risk Patients (6 to 49 Years) Aged Out 01/10/2020, 11/06/2019, 05/13/2000 No [...] 10:43 PM 02/07/2023 1:35 PM Care Teams Supervisor Buffing And Pasting Relationship Specialty Start Date End Date Lucila Turner MD [address] [address] [place] [address] PCP - General FAMILY PRACTICE 02/05/23
--- OUTSIDE RECORDS SUMMARY | 2024-07-01 10:14 | XMS_ITS | Clinical Summary ---
Author Organization [facility] Address [address] [place] [address] Care Team Providers Care Rackman Name Role Phone Stella Mcneill NP Primary Care Provider [phone] Allergies Active Allergy Reactions Criticality Noted Date [...] on file Legal Sex Male 5:45 AM PRISON OFFICER Gender Identity Male 06/05/2023 9:33 AM CDT Sexual Orientation Not on file Obstetrics History Last Filed Vital Signs Vital Sign Reading Time Taken Comments Blood Pressure 144/86 12/23/2023 1:11 PM CDT Pulse 90 12/23/2023 1:11 PM CDT Temperature 36.5 C (97.7 F) 03/19/2023 1:33 PM PRISON OFFICER Respiratory Rate - - Oxygen Saturation 96% [...] HPV Vaccines Completed 12/05/2014, 02/24, 10/17/2013 Insurance [facility] MEDICARE MEDICARE [place] Care Teams Rackman Relationship Specialty Start Date End Date Stella Mcneill NP [facility] [place] [address] PCP - General Nurse Practitioner 11/17/23
--- OUTSIDE RECORDS SUMMARY | 2024-07-01 10:14 | XMS_ITS | Continuity of Care Document ---
Author Organization [facility] Address [address] [place] [address] [address] [place] [address] Phone Care Team Providers Care Architectural Superintendent Name Role Phone Pauline Fall Unavailable Unavailable Procedures Procedure Date Visual Field Examination(s) Eye Exam, New Patient Refraction Advance Directives Directive Yes / No Effective Date File Name No Information Encounters Encounter Description Practice Location Reason(s) For Visit Diagnoses Date Provider Providers Copied on Encounter [facility], [address], [place], [place], [id number], [place] tel:[phone] [facility] No Information [address] , [address], [place], [address], [place]. tel:[phone] Referring Provider: Pauline Jha, [address], [place], [place], [facility]. tel:[phone] Family History Family Member Type Diagnosis Age At Onset No Information Payers Payer name Insurance type Covered alliance party ID Authoriza tion(s) Medicaid [facility] [id number] Social History Type Description Quantity Date Captured [...]
--- OUTSIDE RECORDS SUMMARY | 2024-07-01 10:14 | XMS_ITS | Clinical Summary ---
Author Organization [facility] [place] Address [address] [place] [address] Care Team Providers Care Milk Powder Grinder Name Role Phone Mukesh Maldonado MD Unavailable [phone] Jazlyn Villarreal MD Unavailable [phone] Setlla Mcneill APRN-[facility] Primary Care Provider + Source Comments [facility],non-owned Affiliates and Associated Physician Practices is amultiple site organization consisting of ambulatory clinics and hospital sitesin [place], [place], [place] and [place]. This disclosure is being madepursuant to the Care Everywhere program and may not contain all information available regarding this patient. Last updated 17.[facility] Allergies Active Allergy Reactions Criticality Noted Date Comments Sulfa Drugs Urticaria Medium 01/08/2015 Vancomycin Itching 02/12/2023 Medications * Be aware that medications may not be up to date on this document. Alwaysverify current medications with the patient. albuterol HFA (PROVENTIL;VENT JOSE CARLOS;PROAIR) 108 (90 BASE) MCG/ACT inhaler Inhale 2 (two) puffs by mouth every 6 hours as needed Active loratadine (CLARITIN) 10 MG tablet TK 1 T PO QAM 6 03/20/19 18 Active montelukast (SINGULAIR) 10 MG tablet TK 1 T PO QD IN THE LUKE 6 03/20/19 18 Active citalopram (CELEXA) 20 MG tablet TK 1 T PO QD 1 04/07/19 19 Active albuterol (PROVENTIL;VENT JOSE CARLOS) (2.5 MG/3ML) 0.083% nebulizer solution U 1 VIAL PER NEBULIZER TID PRN 6 01/06/20 18 Active atorvastatin (LIPITOR) 10 MG tablet Take [...] before breakfast Active LORazepam (Ativan) 0.5 MG tabletIndicatio ns:Anxiety Take 2 tabs 1 hour prior to procedure and bring the rest to the procedure. Reasons: Feeling Anxious 5 tablet 10/15/19 22 Active HYDROcodone-stephen taminophen (Lockridge) 7.5-325 MG tablet Take 1 (one) tablet by mouth 3 times daily as needed 02/05/20 23 Active amoxicillin-cla vulanate (Augmentin) 875-125 MG tablet Take 1 (one) tablet by mouth every 12 hours FOR 10 DAYS 04/08/19 24 Active levothyroxine (Synthroid) 100 MCG tablet Take 1 (one) tablet by mouth daily before breakfast Active levoFLOXacin (Levaquin) 500 MG tabletIndicatio ns:Neutropenia, unspecified type TAKE 1 TABLET BY MOUTH EVERY DAY 30 tablet 11 01/27/20 24 Active Additional Information Patient not taking.Reported on 04/19/2024 fluconazole (Diflucan) 200 MG tabletIndicatio ns:Neutropenia, unspecified type TAKE 2 TABLETS BY MOUTH ONCE DAILY WHEN ABSOLUTE NEUTROPHIL COUNT IS LESS THAN 500 60 tablet 5 01/25/20 24 Active Additional Information Patient not taking.Reported on 04/19/2024 filgrastim-aafi (Nivestym) 480 MCG/0.8ML prefilled syringe Inject 0.8 mL subcutaneously every 7 days 3.2 mL 1 04/22/19 25 Active ondansetron, disintegrating, (Zofran ODT) 4 MG tabletIndicatio ns:Nausea and vomiting, unspecified vomiting type Take 1 (one) tablet by mouth every 6 hours as needed for Nausea/Vomiting Allow tablet to dissolve on the tongue 30 tablet 05/28/19 25 Active Additional Information Patient not taking.Reported on 06/14/2024 pantoprazole (Protonix) 40 MG packet Take 1 (one) packet by mouth once daily Active amoxicillin (Amoxil) 500 MG capsule Take 4 (four) capsules by mouth once for 1 dose the morning of your dental visit 4 capsule 06/09/19 25 025 Active Problems Problem Noted Date Diagnosed Date High risk for chemotherapy-induced infectious co mplication 05/12/2023 Chemotherapy-induced neutropenia 05/12/2023 Chronic benign neutropenia 06/23/2022 HTN (hypertension) 12/15/2018 Splenomegaly 11/03/2018 Leukopenia 11/03/2018 Acquired hypothyroidism 01/08/2015 Overview (01/08/2015): Dx (2014) on routine screening biochemistries and managed at [facility] until recently when insurance coverage changed and no longer at accepted at [facility]. No prior medical records available at the [...] 4 3. Follow up with local adult well surveying engineer Assessment & Plan (04/13/2017 9:54 AM BOILER FIREMAN): Acquired hypothyroidism 1. L-thyroxine 0.125 mg daily 2. Obtain serum TSH and total T4 following today's office appointment 3. Return appointment in one year Assessment & Plan (04/01/2016 2:06 PM BOILER FIREMAN): 1. L-thyroxine 0.125 mg daily. 2. Obtain serum TSH and total T4 level following today's office appointment. 3. Counseled regarding medication adherence, keeping return appointments for blood specimen collections, return visits, and risks of developing other autoimmune diseases (diabetes mellitus, hypoparathyroidism). 4. Obtain serum TSH in six months. 5. Return appointment in one year. Assessment & Plan (01/08/2015 3:16 PM BOILER FIREMAN): 1. L-thyroxine 0.1 mg daily. 2. Obtain [...] completed. Assessment & Plan (04/13/2017 9:53 AM BOILER FIREMAN): Acanthosis nigricans; morbid obesity, BMI > 43 (> 99th percentile); FH diabetes mellitus; at risk of developing diabetes mellitus 1. Fasting glucose, lipid profile, hemoglobin A1c 2. Dietary/exercise counseling provided 3. Referral to clinical outside maintenance worker 4. Reviewed signs/symptoms/treatment of diabetes mellitus Assessment & Plan (04/01/2016 2:08 PM BOILER FIREMAN): At risk of developing diabetes mellitus. 1. Obtain fasting comprehensive metabolic panel, hemoglobin A1c, lipid profile. 2. Dietary/exercise counseling provided - to facilate current weight loss (portion size control, decrease dietary concentrated sweets/fats; avoid skipped meals, limit TV . Assessment & Plan (01/08/2015 3:15 PM BOILER FIREMAN): At risk of developing diabetes mellitus. 1. Signs/symptoms of diabetes mellitus reviewed. 2. Dietary counseling provided. 3. Obtain serum glucose and hemoglobin A1c level following today's office appointment (laboratory requisition given at the time of the appointment). 4. Return appointment in six months. Encounters Date Type Department Care Team Description 06/27/2024 Refill [facility] [address] [place] [phone] Jazlyn Villarreal MD Refill Request 06/14/2024 1:20 PM CDT Office Visit [facility] - Hematology/Oncology [address] [place] [phone] Jazlyn Villarreal MD Neutropenia, unspecified type (Primary Dx); Other penitentiary (current) drug therapy 06/14/2024 12:30 PM CDT - 06/14/2024 11:59 PM CDT Hospital Encounter [facility] [address] [place] [address], [address] [place] [address] Discharge Disposition: Home or Self Care 06/14/2024 Travel 06/11/2024 Orders Only [facility] [address] [place] [phone] Jazlyn Villarreal MD Chronic benign neutropenia 06/10/2024 Orders Only [facility] [address] [place] [phone] Jazlyn Villarreal MD Chronic benign neutropenia 06/08/2024 Orders Only [facility] [address] [place] [phone] Jazlyn Villarreal MD 05/27/2024 Refill [facility] [address] [place] [phone] Chuck Lama RN MEDICATION REFILL 05/13/2024 9:56 AM CDT - 05/13/2024 11:59 PM CDT Hospital Encounter [facility] [address] [place] [phone] Jazlyn Villarreal MD Discharge Disposition: Home or Self Care 05/13/2024 Travel 05/10/2024 Orders Only [facility] - Hematology/Oncology [address] [place] [phone] Jazlyn Villarreal MD Neutropenia, unspecified type 04/25/2024 Telephone [facility] - Hematology/Oncology [address] [place] [phone] Jazlyn Villarreal MD Medication Prior Auth Request 04/25/2024 Telephone [facility] - Hematology/Oncology [address] [place] [address] [phone] Jazlyn Villarreal MD Medication Prior Auth Request 04/22/2024 Telephone [facility] - Hematology/Oncology [address] [place] [phone] Jazlyn Villarreal MD Medication Prior Auth Request 04/22/2024 Telephone [facility] Physician [facility] - Hematology/Oncology [address] [place] [phone] Jazlyn Villarreal MD Medication Prior Auth Request 04/22/2024 Orders Only [facility] [address] [place] [phone] Chuck Lama RN 04/19/2024 1:40 PM BOILER FIREMAN Office Visit [facility] Physician [facility] - Hematology/Oncology [address] [place] [phone] Lucila King MD Rajeh, Mhd Nabeel, MD Neutropenia, unspecified type (Primary Dx); Chronic benign neutropenia 04/19/2024 1:09 PM BOILER FIREMAN - 04/19/2024 11:59 PM BOILER FIREMAN Hospital Encounter [facility] [address] [place] [phone] Lucila King MD Discharge Disposition: Home or Self Care 04/19/2024 Telephone [facility] Physician [facility] - Hematology/Oncology [address] [place] [phone] Jazlyn Villarreal MD Medication Prior Auth Request 04/19/2024 Telephone [facility] Physician [facility] - Hematology/Oncology [address] [place] [phone] Jazlyn Villarreal MD 04/19/2024 Orders Only [facility] [address] [place] [phone] Susan Sanches, TEST SPECIALIST-SENIOR SALES ENGINEER 04/19/2024 Travel 04/15/2024 Orders Only [facility] - Hematology/Oncology [address] [place] [phone] Jazlyn Villarreal MD Chronic benign neutropenia from Last 3 Months Immunizations Immunization Administration Dates Next Due INFLUENZA VACCINE 12/25/2019 [...] on file Legal Sex Male 5:44 AM BOILER FIREMAN Gender Identity Not on file Sexual Orientation Not on file Last Filed Vital Signs Vital Sign Reading Time Taken Comments Blood Pressure 116/80 06/14/2024 1:45 PM CDT Pulse 75 06/14/2024 1:45 PM CDT Temperature 36.8 C (98.2 F) 06/14/2024 1:45 PM CDT Respiratory Rate 18 06/14/2024 1:45 PM CDT Oxygen Saturation 97% 06/14/2024 1:45 PM CDT Inhaled Oxygen Concentration - - Weight 131.4 kg (289 lb 9.6 oz) 06/14/2024 1:45 PM CDT Height 175.3 cm (5' 9 ) 09/15/2023 1:01 PM CDT Body Mass Index 42.77 09/15/2023 1:01 PM CDT Plan of Treatment Upcoming Encounters Date Type Department Care Team (Late st Contact Info) Description 07/12/2024 2:20 PM CDT Office Visit [facility] - Hematology/Oncology [address] [place] [phone] Jazlyn Villarreal MD [address] [facility] [place] [address] Health Maintenance Due Date Last Done Comments [...] (2 of 2 - PCV) 11/05/2020 11/06/2019 DEPRESSION SCREENING 02/24/2024 INFLUENZA VACCINE (Season Ended) 2024 01/10/2020, 12/25/2019, 03/16/2019, Additional history exists HIV SCREENING Completed 09/10/2021 HIB VACCINE Aged [...] Procedure Name Priority Date/Time Associated Diagnosis Comments IMMUNOGLOBULINS IGG/IGM/IGA PANEL STAT 06/14/2024 1:07 PM CDT Neutropenia, unspecified type VITAMIN B12 [place] 06/14/2024 1:07 PM CDT Neutropenia, unspecified type Other penitentiary (current) drug therapy FOLATE Routine 06/14/2024 1:07 PM CDT Neutropenia, unspecified type LDH BLOOD Routine 06/14/2024 1:07 PM CDT Chronic benign neutropenia PHOSPHORUS BLOOD [place] 06/14/2024 1:07 PM CDT High risk for chemotherapy-induce d infectious complication MAGNESIUM BLOOD [place] 06/14/2024 1:07 PM CDT High risk for chemotherapy-induce d infectious complication COMPREHENSIVE METABOLIC PANEL [place] 06/14/2024 1:07 PM CDT High risk for chemotherapy-induce d infectious complication CBC W AUTO DIFFERENTIAL [place] 06/15/19 1:07 PM CDT High risk for chemotherapy-induce d infectious complication US ABDOMEN LIMITED Routine 05/13/2024 10 :29 AM CDT Splenomegaly CBC W AUTO DIFFERENTIAL Routine 04/19/19 1:16 PM BOILER FIREMAN Neutropenia, unspecified type COMPREHENSIVE METABOLIC PANEL Routine 04/19/2024 1:16 PM BOILER FIREMAN Neutropenia, unspecified type MAGNESIUM BLOOD Routine 04/19/2024 1:16 PM BOILER FIREMAN Neutropenia, unspecified type PHOSPHORUS BLOOD Routine 04/19/2024 1:16 PM BOILER FIREMAN Neutropenia, unspecified type HIV-1 HIV-2 ANTIBODY + HIV P24 AG PANEL Routine 09/10/2021 3:11 PM CDT Leukopenia, unspecified type from Last 3 Months or Most Recently Relevant to Health Maintenance Results * (ABNORMAL) CBC WITH DIFFERENTIAL (06/14/2024 1:07 PM CDT) Only the most recent of2 resultswithin the time period is included. WBC 6.9 4.0 - 10.7 x10E9/L 06/14/2024 1:43 PM CDT [facility] RBC Count 5.64 4.30 - 5.80 x10E12/L 06/14/2024 1:43 PM CDT [facility] Hemoglobin 16.4 13.3 - 17.5 g/dL 06/14/2024 1:43 PM CDT [facility] Hematocrit 46.2 38.7 - 51.1 % 06/14/2024 1:43 PM CDT [facility] MCV 81.9 80.0 - 98.0 fL 06/14/2024 1:43 PM [facility] MCH 29.1 26.7 - 33.6 pg 06/14/2024 1:43 PM [facility] MCHC 35.5 31.7 - 36.3 g/dL 06/14/2024 1:43 PM [facility] RDW-CV 12.2 11.3 - 14.8 % 06/14/2024 1:43 PM [facility] Platelet Count 82(L) 150 - 420 x10E9/L 06/14/2024 1:43 PM [facility] MPV 06/14/2024 1:43 PM [facility] Comment:Unable to report Neutrophil % 70.2 41.0 - 74.0 % 06/14/2024 1:43 PM [facility] Lymphocyte % 17.6 17.0 - 47.0 % 06/14/2024 1:43 PM [facility] Monocyte % 9.1 3.0 - 11.0 % 06/14/2024 1:43 PM [facility] Eosinophil % 1.3 0.0 - 7.0 % 06/14/2024 1:43 PM [facility] Basophil % 0.9 0.0 - 1.6 % 06/14/2024 1:43 PM [facility] Immature Granulocytes % 0.9 0.0 - 1.0 % 06/14/2024 1:43 PM [facility] Neutrophil Absolute 4.88 1.60 - 7.50 x10E9/L 06/14/2024 1:43 PM [facility] Lymphocyte Absolute 1.22 1.00 - 4.40 x10E9/L 06/14/2024 1:43 PM [facility] Monocyte Absolute 0.63 0.15 - 1.00 x10E9/L 06/14/2024 1:43 PM [facility] Eosinophil Absolute 0.09 0.00 - 0.60 x10E9/L 06/14/2024 1:43 PM [facility] Basophil Absolute 0.06 0.00 - 0.13 x10E9/L 06/14/2024 1:43 PM [facility] Blood BLOOD SPECIMEN / Unknown Lab Venipuncture / Unknown 06/14/2024 1:07 PM CDT 06/14/2024 1:17 PM CDT [facility] Sohan Villarreal MD LAB - HEMATOLOGY ORDERABLES Final Result [facility] [address] [place] [address], [facility] [phone] * (ABNORMAL) COMPREHENSIVE METABOLIC PANEL (06/14/2024 1:07 PM CDT) Only the most recent of2 resultswithin the time period is included. BUN 12 7 - 26 mg/dL 06/14/2024 1:52 PM [facility] Creatinine 0.96 0.71 - 1.16 mg/dL 06/14/2024 1:52 PM [facility] Sodium 142 136 - 145 mmol/L 06/14/2024 1:52 PM [facility] Potassium 4.2 3.5 - 4.5 mmol/L 06/14/2024 1:52 PM [facility] Chloride 104 98 - 107 mmol/L 06/14/2024 1:52 PM [facility] CO2 25 22 - 29 mmol/L 06/14/2024 1:52 PM [facility] Glucose 88 70 - 99 mg/dL 06/14/2024 1:52 PM [facility] Calcium 9.2 8.4 - 10.2 mg/dL 06/14/2024 1:52 PM [facility] Protein Total 7.3 6.0 - 8.3 g/dL 06/14/2024 1:52 PM [facility] Albumin 4.6 3.4 - 5.0 g/dL 06/14/2024 1:52 PM [facility] Bilirubin Total 1.6(H) 0.2 - 1.2 mg/dL 06/14/2024 1:52 PM [facility] Alkaline Phosphatase 64 40 - 150 U/L 06/14/2024 1:52 PM [facility] ALT 32 5 - 55 U/L 06/14/2024 1:52 PM CDT [facility] AST 17 5 - 34 U/L 06/14/2024 1:52 PM CDT [facility] Anion Gap 13 6 - 16 06/14/2024 1:52 PM CDT [facility] BUN/Creatinine Ratio 13 7 - 23 06/14/2024 1:52 PM CDT [facility] Osmolality Calculated 293 275 - 295 mOsm/kg 06/14/2024 1:52 PM T [facility] Albumin/Globulin Ratio 1.7 1.1 - 2.3 06/14/2024 1:52 PM T [facility] eGFR by CKD-EPI >90 >=90 mL/min/1.7 3 m2 06/14/2024 1:52 PM CDT [facility] Blood BLOOD SPECIMEN / Unknown Lab Venipuncture / Unknown 06/14/2024 1:07 PM CDT 06/14/2024 1:17 PM CDT [facility] Sohan Villarreal MD LAB - CHEMISTRY ORDERABLES F inal Result Performing Organization Address City/[facility]/ZIP Co de Phone Number [address] [address], [facility] [phone] * PHOSPHORUS BLOOD (06/14/2024 1:07 PM CDT) Only the most recent of2 resultswithin the time period is included. Phosphorus 4.3 2.8 - 5.1 mg/dL 06/14/2024 1:52 PM T [facility] Blood BLOOD SPECIMEN / Unknown Lab Venipuncture / Unknown 06/14/2024 1:07 PM CDT 06/14/2024 1:17 PM CDT [facility] Sohan Villarrael MD LAB - CHEMISTRY ORDERABLES F inal Result [address] [address], [place] [phone] * MAGNESIUM BLOOD (06/14/2024 1:07 PM CDT) Only the most recent of2 resultswithin the time period is included. [facility] Magnesium 2.0 1.6 - 2.6 mg/dL 06/14/2024 1:52 PM CDT [facility] Blood BLOOD SPECIMEN / Unknown Lab Venipuncture / Unknown 06/14/2024 1:07 PM CDT 06/14/2024 1:17 PM CDT [facility] LAB - CHEMISTRY ORDERABLES F inal Result [address] [address], [place] [phone] * (ABNORMAL) LDH BLOOD (06/14/2024 1:07 PM CDT) [facility] LDH Total 98(L) 125 - 243 Units/L 06/14/2024 1:52 PM CDT [facility] Blood BLOOD SPECIMEN / Unknown Lab Venipuncture / Unknown 06/14/2024 1:07 PM CDT 06/14/2024 1:17 PM CDT Jazlyn Villarreal MD LAB - CHEMISTRY ORDERABLES F inal Result Performing Organization Address City/[facility]/ZIP Co de Phone Number [address] [address], [place] [phone] * FOLATE (06/14/2024 1:07 PM CDT) [facility] Folate 12.9 7.0 - 31.4 ng/mL 06/14/2024 2:24 PM CDT [facility] Blood BLOOD SPECIMEN / Unknown Lab Venipuncture / Unknown 06/14/2024 1:07 PM CDT 06/14/2024 1:17 PM CDT Jazlyn Villarreal MD LAB - CHEMISTRY ORDERABLES F inal Result [address] [address], [place] [phone] * VITAMIN B12 (06/14/2024 1:07 PM CDT) Vitamin B12 739 213 - 816 pg/mL 06/14/2024 2:24 PM CDT [facility] Blood BLOOD SPECIMEN / Unknown Lab Venipuncture / Unknown 06/14/2024 1:07 PM CDT 06/14/2024 1:17 PM CDT [facility] Sohan Villarreal MD LAB - CHEMISTRY ORDERABLES F inal Result [address] [address], [facility] [phone] * (ABNORMAL) IMMUNOGLOBULINS IGG/IGM/IGA PANEL (06/14/2024 1:07 PM CDT) IgG 973 767 - 1,590 mg/dL 06/14/2024 2:40 PM CDT [facility] IgM 47 37 - 286 mg/dL 06/14/2024 2:40 PM CDT [facility] IgA 39(L) 61 - 356 mg/dL 06/14/2024 2:40 PM CDT [facility] Blood BLOOD SPECIMEN / Unknown Lab Venipuncture / Unknown 06/14/2024 1:07 PM CDT 06/14/2024 2:14 PM CDT [facility] S[facility] MD LAB - CHEMISTRY ORDERABLES F inal Result [address] [address], [place] [phone] * US Abdomen Limited (05/13/2024 10:29 AM [...] performed with DICOM image capture performed by human performance technologist. FINDINGS: Spleen is enlarged and measures [...] > Interpreting Provider: Roderick Osei MD on 512:15 PM us [facility] Sohan Villarreal MD US ORDERABLES Final Result * HIV-1 HIV-2 ANTIBODY + HIV P24 AG PANEL (09/10/2021 3:11 PM CDT) HIV Antigen/Antibod y 1 & 2 Non-reacti ve Non-react juan m 09/10/2021 4:44 PM CDT [facility] Comment:No Laboratory eviden ce of HIV infection. Blood BLOOD SPECIMEN / Unknown Lab Venipuncture / Unknown 09/10/2021 3:11 PM CDT 09/10/2021 3:28 PM CDT us Jazlyn Villarreal MD LAB - CHEMISTRY ORDERABLES F inal Result [facility] [address] [place] [phone] [phone] from Last 3 Months or Most Recently Relevant to Health Maintenance Insurance MEDICARE MEDICAID - [place] Care Teams Milk Powder Grinder Relationship Specialty Start Date End Date Stella Mcneill APRN-DUTCH Family Medicine [address] [address] PCP - General 06/14/24 Mukesh Maldonado MD [address] [place] [address] EXECUTIVE [facility] [address] Allergy and Immunology 08/30/19 Jazlyn Villarreal MD [address] [place] [phone] Merchandise Coordinator/Oncologist Hematology and Oncology 09/15/19
--- OUTSIDE RECORDS SUMMARY | 2024-07-01 10:14 | XMS_ITS ---
Author Organization [employer] [facility] [facility] Address [address] [place] [address] Care Team Providers Care Assistant Infant Toddler Teacher Name Role Phone Susan Baeza Primary Care Provider REASON FOR VISIT f/u alex Encounters Encounter Location Date Provider Diagnosis [facility] - Susan Baeza [address] [place] [address] 04/25/2024 Susan Baeza Plan Of Treatment No Information Progress Notes * Diego BYRDKatelynOB:2000 ( 23 yo M)Acc No.[id number]:04/25/2024 Progress Notes Patient: Bob PINEDA Provider: Anupama Baeza MD :2000 A ge:23 Y S ex:Male Date:04/25/2024 [facility] Subjective: * Chief Complaints: * 1 . F/u alex. * Medical History: Objective: * Vitals: Assessment: Plan: * Treatment: * Billing Information: * Visit Code: * Procedure Codes: * Electronic signature of Kevyn Baeza MD on 07/01/2024 at 10:13 AM CDT Sign off status: Pending * Provider: Anupama Baeza MD Date: 04/25/2024 Generated for Nicolas dolan/Mitra/eTransmitting on: 07/01/2024 10:13 AM CDT
--- OUTSIDE RECORDS SUMMARY | 2024-07-01 10:14 | XMS_ITS ---
Author Organization [facility] Address [address] [place] [address] Care Team Providers Care Corporate Representative Name Role Phone Susan Baeza Primary Care Provider REASON FOR VISIT 3 month follow up Encounters Encounter Location Date Provider Diagnosis [facility] - Susan Baeza [address] [place] [address] 03/21/2024 Susan Baeza Plan Of Treatment No Information Progress Notes * Diego BYRDKatelynOB:2000 ( 23 yo M)Acc No.[id number]:03/21/2024 Progress Notes Patient: Bob PINEDA Provider: Anupama Baeza MD :2000 A ge:23 Y S ex:Male Date:03/21/2024 [facility] Subjective: * Chief Complaints: * 1 . 3 month follow up. * Medical History: Objective: * Vitals: Assessment: Plan: * Treatment: * Billing Information: * Visit Code: * Procedure Codes: * Electronic signature of Kevyn Baeza MD on 07/01/2024 at 10:13 AM CDT Sign off status: Pending * Provider: Anupama Baeza MD Date: 0 03/21/2024 Generated for Nicolas dolan/Mitra/eTransmitting on: 0 07/01/2024 10:13 AM CDT
--- NOTE | 2024-07-01 10:17 | ED_ITS ---
HPI - General Adult General Chief complaint: Urogenital-Male Stated complaint: L testicle pain/swelling Time Seen by Provider: 07/01/24 10:16 Source: patient and family Mode of arrival: ambulatory Limitations: no limitations History of Present Illness HPI narrative: 23 years old white male came to the ED complaining of left testicular pain, probably swollen started 3 days ago. Patient denies any trauma, fever, chills or new sexual activities. History of similar symptoms possibly epididymitis Onset (ago): day(s) Severity: mild Severity scale (1-10): 3 Quality: aching Pain Consistency: constant Relieving factors: medication (Tylenol, ibuprofen) Exacerbating factors: movement Associated symptoms: denies other symptoms Related Data Home Medications ?Medication ?Instructions ?Recorded ?Confirmed ?Last Taken ?Type levothyroxine 137 mcg tablet 137 mcg PO DAILY 02/05/22 03/08/24 Unknown History albuterol sulfate 90 mcg/actuation 2 puff inhalation Q4-5H PRN 08/28/22 03/08/24 Unknown History aerosol inhaler (Ventolin HFA) Shortness Of Breath Or Wheezing budesonide-formoterol HFA 160 2 puff inhalation BID 08/28/22 03/08/24 Unknown History mcg-4.5 mcg/actuation aerosol inhaler (Symbicort) Fiber BYVTUTH 06/30/23 03/08/24 Unknown History Stool Softeners BYVTUTH 06/30/23 03/08/24 Unknown History buspirone 10 mg tablet 10 mg PO BID 12/28/23 03/08/24 Unknown History zinc glycinate 30 mg capsule 30 mg PO DAILY 03/08/24 03/08/24 Unknown History Allergies Allergy/AdvReac Type Severity Reaction Status Date / Time Sulfa (Sulfonamide Allergy Unknown Unknown Verified 07/01/24 10:11 Antibiotics) vancomycin Allergy Unknown Unknown Verified 07/01/24 10:11 Review of Systems 2 Review of Systems: All systems reviewed & are unremarkable except as noted in HPI and below PMFSH Past Medical History Medical History Abnormal finding on imaging Anal fissure Chronic benign neutropenia External hemorrhoids Family hx colonic polyps Family hx of colon cancer GERD (gastroesophageal reflux disease) Hematochezia Hemorrhoids Hidradenitis suppurativa Nausea and vomiting Obesity Family History Family History Mother Asthma Diabetes mellitus Hypertension Depression Heart disease Cerebrovascular accident History of ETOH abuse Disorder of thyroid Grandparent Diabetes mellitus Hypertension Lung cancer Ovarian cancer Social History Social History Smoking status: Never smoker Alcohol intake: never Substance use: never Substance use type: does not use Lack of Transportation: No Lack of Food: Never True Current Housing: I Have Housing Concerned About Future Housing: No Difficulty Paying Gas/Electric Bills: No Difficulty Paying for Meds: No Currently Unemployed: YES Education: High School Diploma/GED Living arrangements: with family Occupation/Education: unemployed Gender identity (if verbalized by the patient): Male Spiritual care concerns: No Exam 2 Narrative: General appearance: Well-developed, well-nourished Skin: Normal color Head: Normocephalic, nontraumatic Eyes: Clear conjunctiva ENT: Oropharynx normal, ears normal, nose normal Neck: Supple, nontender Chest and respiratory: Airway patent, no respiratory distress, no accessory muscle use Heart: Regular rate/rhythm Abdomen: Soft, nontender, no organomegaly, quiet bowel sounds testicular exam showing slight diffuse tenderness of the left testicle and slightly swollen, no bruises, no erythema Vascular: Normal peripheral pulses, normal capillary refill. 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 tested, no gross motor deficit Course Vital Signs Vital signs: Vital Signs Temperature 36.4 C 07/01/24 10:21 Pulse Rate 83 07/01/24 10:21 Respiratory Rate 18 07/01/24 10:21 Blood Pressure 137/79 07/01/24 10:21 Pulse Oximetry 100 07/01/24 10:21 Oxygen Delivery Room Air 07/01/24 10:21 Temperature 36.4 C 07/01/24 10:21 Pulse Rate 88 07/01/24 12:29 Respiratory Rate 18 07/01/24 12:29 Blood Pressure 150/80 H 07/01/24 12:29 Pulse Oximetry 99 07/01/24 12:29 Oxygen Delivery Room Air 07/01/24 10:21 Medical Decision Making MDM Narrative Medical decision making narrative: Patient presents with nontraumatic left testicular pain Vital signs are stable Physical examination consistent with slightly swollen, tender left testicle Differential diagnosis include epididymitis, hydrocele, urinary tract infection Blood workup today includes CBC, CMP showed platelet of 73, otherwise insignificant abnormality Urinalysis showed no evidence of infection Testicular ultrasound showed left varicocele, Differential Diagnosis Differential Diagnosis: As above Vital Signs Vital Signs: Vital Signs Temperature 36.4 C 07/01/24 10:21 Pulse Rate 83 07/01/24 10:21 Respiratory Rate 18 07/01/24 10:21 Blood Pressure 137/79 07/01/24 10:21 Pulse Oximetry 100 07/01/24 10:21 Oxygen Delivery Room Air 07/01/24 10:21 Temperature 36.4 C 07/01/24 10:21 Pulse Rate 88 07/01/24 12:29 Respiratory Rate 18 07/01/24 12:29 Blood Pressure 150/80 H 07/01/24 12:29 Pulse Oximetry 99 07/01/24 12:29 Oxygen Delivery Room Air 07/01/24 10:21 Lab Data 07/01/24 11:21 07/01/24 11:21 Labs: Lab Results 07/01/24 Range/Units 11:21 WBC 5.7 (4.5-10.0) K/mm3 RBC 5.05 (4.6-6.20) M/mm3 Hgb 14.5 (14.0-18.0) g/dL Hct 42.1 (42.0-52.0) % MCV 83.4 (80-100) fl MCH 28.7 (26-34) pg MCHC 34.4 (32-36) g/dl RDW 12.0 (11.5-14.5) % Plt Count 73 L (150-375) k/mm3 MPV 12.9 H (7.4-10.4) fl Immature Gran % (Auto) 0.5 (0-0.5) % Neut % (Auto) 70.3 (45.5-73.1) % Lymph % (Auto) 18.7 (18.3-44.2) % Nash % (Auto) 7.7 (2.6-8.5) % Eos % (Auto) 1.9 (0-4.4) % Baso % (Auto) 0.9 (0.2-1.2) % Lymph # (Auto) 1.07 (0.9-3.2) K/mm3 Nash # (Auto) 0.4 (0.1-0.6) K/mm3 Eos # (Auto) 0.1 (0-0.3) K/mm3 Baso # (Auto) 0.1 (0.0-0.1) K/mm3 Abs Immat Gran (auto) 0.03 (0.00-0.031) K/mm3 Absolute Neuts (auto) 4.0 (1.3-6.7) K/mm3 Absolute Nucleated RBC 0.000 (0.0-0.012) K/mm3 Band Neutrophils % Not Reportable Nucleated RBC % 0.0 (0.0-0.2) % Atypical Lymphocytes Present Platelet Estimate Decreased (Adequate) % Immature Plt Fraction 15.7 H (0.9-11.2) % Schistocytes None seen Sodium 143 (137-145) mmol/L Potassium 4.1 (3.4-5.0) mmol/L Chloride 104 (98-107) mmol/L Carbon Dioxide 31 H (22-30) mmol/L Anion Gap 8 (4-12) mmol/L BUN 12 (9-20) mg/dL Creatinine 0.95 (0.7-1.3) mg/dL Estim Creat Clear Calc 145 ml/min Estimated GFR > 60 (59 - ) Glucose 116 H (65-110) mg/dL Calcium 9.3 (8.4-10.2) mg/dL Total Bilirubin 1.9 H (0.2-1.3) mg/dL AST 34 (17-59) U/L ALT 43 (6-50) U/L Alkaline Phosphatase 55 (38-126) U/L Total Protein 7.0 (6.3-8.2) g/dL Albumin 4.7 (3.5-5.1) g/dL Urine Color Yellow (Yellow) Urine Appearance Clear (Clear) Urine pH 7.0 (5.0-9.0) Ur Specific [place] 1.004 (1.001-1.035) Urine Protein Negative (Negative) mg/dL Urine Glucose (UA) Negative (Negative) mg/dL Urine Ketones Negative (Negative) mg/dL Ur Blood (Man) Negative (Negative) Urine Nitrate Negative (Negative) Urine Bilirubin Negative (Negative) Urine Urobilinogen 0.2 (<2.0) mg/dL Leukocyte Esterase Rfl Negative (Negative) DANUTA/UL Discharge Plan Discharge Clinical Impression: Acute hydrocele, Thrombocytopenia Patient Disposition: Home Condition: Stable Instructions: Antibiotic Form, Testicle Pain (ED), Thrombocytopenia (ED) Additional Instructions: Return if symptoms are worsening , call Dr. Osorio for appointment, take Tylenol 650 and or ibuprofen 600 every 6 hours as as needed for aches and pain, continue home medications. Bedrest Testicular suspension Patient Language: Belarusian Prescriptions: New ciprofloxacin HCl [Cipro] 500 mg tablet 500 mg PO Q12H Qty: 14 0RF No Action buspirone 10 mg tablet 10 mg PO BID Fiber BYMOUTH Rx Instructions: Prn Stool Softeners BYMOUTH Rx Instructions: Prn zinc glycinate 30 mg capsule 30 mg PO DAILY albuterol sulfate [Ventolin HFA] 90 mcg/actuation HFA aerosol inhaler 2 puff INHALATION Q4-5H PRN (Reason: Shortness Of Breath Or Wheezing) budesonide-formoterol [Symbicort] 160-4.5 mcg/actuation HFA aerosol inhaler 2 puff INHALATION BID levothyroxine 137 mcg tablet 137 mcg PO DAILY azithromycin 250 mg tablet See Rx Instructions PO .COMPLEX Qty: 6 0RF Rx Instructions: For 250 mg dose pack: take 500 mg today (day 1), then 250 mg for 4 days (days 2-5) PO loratadine [Claritin] 10 mg tablet 10 mg PO DAILY Qty: 90 3RF lorazepam 0.5 mg tablet 0.5 mg PO DAILY PRN (Reason: panic attack(s)) Qty: 30 1RF pantoprazole 40 mg tablet,delayed release (DR/EC) 40 mg PO QAM Qty: 30 1RF montelukast 10 mg tablet See Rx Instructions .ROUTE .COMPLEX Qty: 90 1RF Dose Instruction: TAKE 1 TABLET BY MOUTH DAILY Rx Instructions: TAKE 1 TABLET BY MOUTH DAILY atorvastatin 20 mg tablet See Rx Instructions .ROUTE .COMPLEX Qty: 90 1RF Dose Instruction: TAKE 1 TABLET BY MOUTH DAILY Rx Instructions: TAKE 1 TABLET BY MOUTH DAILY Follow-up/Referrals: Drake Garcia MD [Physician] - 07/04/24 Stella Mcneill APRN [Primary Care Provider] -
[2024-07-01 10:21] VITALS: BP 137/79; PULSE 83; RESP 18; TEMP 36.4; O2SAT 100
--- OUTSIDE RECORDS SUMMARY | 2024-07-01 10:31 | XMS_ITS | Continuity of Care Document ---
Author Organization [facility] Address [address] [place] [address] [address] [place] [address] Phone Care Team Providers Care Garbage Stoker Name Role Phone Pauline Fall Unavailable Unavailable Procedures Procedure Date Visual Field Examination(s) Eye Exam, New Patient Refraction Advance Directives Directive Yes / No Effective Date File Name No Information Encounters Encounter Description Practice Location Reason(s) For Visit Diagnoses Date Provider Providers Copied on Encounter [facility], [address], [place], [place], [id number], [place] tel:[phone] [facility] No Information [address]. [address] [facility] , [address], [place], [address], [place]. tel:[phone] Referring Provider: Pauline Jha, [address] [facility], [place], [place], [facility]. tel:[phone] Family History Family Member Type Diagnosis Age At Onset No Information Payers Payer name Insurance type Covered constitution party ID Authoriza tion(s) Medicaid [facility] [id number] Social History Type Description Quantity Date Captured [...]
--- OUTSIDE RECORDS SUMMARY | 2024-07-01 10:31 | XMS_ITS | CONTINUITY OF CARE DOCUMENT ---
Author Name corazon chandra Address Unknown Organization [facility] Address [address] [facility] [address] [place] [address] Phone [phone] Care Team Providers Care Local Hazmat Driver Name Role Phone Chad TSE, Zhao Unavailable Zhao Bonilla MD Unavailable INSURANCE PROVIDERS Payer name Policy type / Coverage type [place] red alliance party ID HEALTHCARE AND FAMILY SERVICES Medicaid 1 [id number] [place] MED[place] Medicare [id number]
--- NOTE | 2024-07-01 11:25 | PC.NURSE ---
1110: RN chaperoned Dr. Welsh with scrotal exam. Pt tender upon palpitation to left testicle. No penile drainage noted
[2024-07-01 11:29] LABS: Add Urine Microscopic? NO; Appearance Urine Clear (Clear); Bilirubin Urine Negative (Negative); Blood Urine Negative (Negative); Color Urine Yellow (Yellow); Glucose Urine UA Negative (Negative); Ketones Urine Negative (Negative); Leukocyte Esterase Ur Negative LEU/UL (Negative); Nitrate Urine Negative (Negative); Protein Urine Negative (Negative); Specific Grav Ur 1.004 (1.001-1.035); Urobilinogen Urine 0.2 mg/dL (<2.0)
[2024-07-01 11:38] LABS: Alanine Aminotransferase 43 U/L (6-50); Albumin Level 4.7 g/dL (3.5-5.1); Alkaline Phosphatase 55 U/L (38-126); Anion Gap 8 mmol/L (4-12); Aspartate Amino Transferase 34 U/L (17-59); Bilirubin,Total 1.9 mg/dL (0.2-1.3); Blood Urea Nitrogen 12 mg/dL (9-20); Calcium 9.3 mg/dL (8.4-10.2); Carbon Dioxide 31 mmol/L (22-30); Chloride 104 mmol/L (98-107); Estimated CRCL calculation 145 ml/min; Estimated Glomerular Filt Rate > 60; Glucose 116 mg/dL (65-110); Potassium 4.1 mmol/L (3.4-5.0); Sodium 143 mmol/L (137-145)
[2024-07-01 11:42] LABS: Basophils Absolute Auto 0.1 K/mm3 (0.0-0.1); Basophils Percent Auto 0.9 % (0.2-1.2); Eosinophils Absolute Auto 0.1 K/mm3 (0-0.3); Eosinophils Percent Auto 1.9 % (0-4.4); Hematocrit 42.1 % (42.0-52.0); Hemoglobin 14.5 g/dL (14.0-18.0); Immature Granulocyte Absolute 0.03 K/mm3 (0.00-0.031); Immature Granulocyte Percent A 0.5 % (0-0.5); Immature Platelet Fraction Pct 15.7 % (0.9-11.2); Lymphocytes Absolute Auto 1.07 K/mm3 (0.9-3.2); Lymphocytes Percent Auto 18.7 % (18.3-44.2); Mean Corpuscular HGB Conc 34.4 g/dl (32-36); Mean Corpuscular Hemoglobin 28.7 pg (26-34); Mean Corpuscular Volume 83.4 fl (80-100); Mean Platelet Volume 12.9 fl (7.4-10.4); Monocytes Absolute Auto 0.4 K/mm3 (0.1-0.6); Monocytes Percent Auto 7.7 % (2.6-8.5); Neutrophils Percent Auto 70.3 % (45.5-73.1); Platelet Count Result 73 k/mm3 (150-375); Red Blood Count 5.05 M/mm3 (4.6-6.20); White Blood Count 5.7 K/mm3 (4.5-10.0)
[2024-07-01 12:10] LABS: Platelet Estimate Decreased (Adequate); Schistocytes None Seen
[2024-07-01 12:11] LABS: Atypical Lymphocytes Present
[2024-07-01 12:29] VITALS: BP 150/80; PULSE 88; RESP 18; O2SAT 99
[2024-07-01 13:22] VITALS: BP 142/86; PULSE 99; RESP 16; O2SAT 97
== END 2024-07-01 13:23 | disposition home or self-care (01) ==
PROVIDERS: Emergency Provider Emergency Medicine; PCP Nurse Practitioner Adult Health
DX: N43.3 Hydrocele, unspecified (principal); D69.6 Thrombocytopenia, unspecified; K21.9 Gastro-esophageal reflux disease without esophagitis
CPT/HCPCS: 36415; 76870; 80053; 81003; 85025; 85055; 93976; 99284

== ENCOUNTER 2024-07-03 23:10 | Emergency (ER) | payer MEDICARE, MEDICAID, SELFPAY ==
--- NOTE | ~2024-07-03 | CT_ITS ---
Non-contrast CT scan of the Abdomen and Pelvis Clinical indication: Left flank pain Technique: 2.5 mm axial scans were obtained through the abdomen and pelvis without intravenous or or al contrast. Dose reduction technique was used on this scan by utilizing automated exposure control a nd iterative reconstruction technique. The dose-length product (DLP) was 1727.55 mGy-cm. COMPARISON: 05/23/2024 Findings: Images through the lung bases reveal no abnormalities. There is no evidence of renal or ureteral calculi. The kidneys and the ureters are nondilated. The liver, pancreas, gallbladder, and adrenals appear normal. Spleen is enlarged, measuring 15.6 cm i n length. There is no aortic aneurysm. There is no evidence of bowel obstruction. Images through the pelvis were performed. There is no evidence of ascites or lymphadenopathy. Urinary bladder unremarkable. No pelvic mass seen. Impression: Splenomegaly, of uncertain etiology. No renal, ureteral, or bladder stone. No hydronephrosis. Reviewed, dictated and finalized at [facility]. Impression: Splenomegaly, of uncertain etiology. No renal, ureteral, or bladder stone. No hydronephrosis.
--- OUTSIDE RECORDS SUMMARY | 2024-07-03 23:12 | XMS_ITS ---
Author Organization [facility] Address [address] [place] [address] Care Team Providers Care Rotating Field Assembler Name Role Phone Susan Baeza Primary Care Provider [phone] REASON FOR VISIT f/u alex Encounters Encounter Location Date Provider Diagnosis [facility] - Susan Baeza [address] [place] [address] 04/01/2024 Susan Baeza Plan Of Treatment No Information Progress Notes * Diego BYRDKatelynOB:2000 ( 23 yo M)Acc No.[id number]:04/01/2024 Progress Notes Patient: Bob PINEDA Provider: Anupama Baeza MD :2000 A ge:23 Y S ex:Male Date:04/01/2024 [facility] Subjective: * Chief Complaints: * 1 . F/u alex. * Medical History: Objective: * Vitals: Assessment: Plan: * Treatment: * Billing Information: * Visit Code: * Procedure Codes: * Electronic signature of Kevyn Baeza MD on 07/03/2024 at 11:12 PM CDT Sign off status: Pending * Provider: Anupama Baeza MD Date: 0 04/01/2024 Generated for Jordani ng/Fafrankieg/eTransmitting on: 0 07/03/2024 11:12 PM CDT
--- OUTSIDE RECORDS SUMMARY | 2024-07-03 23:12 | XMS_ITS | Patient Health Record ---
Author Organization [employer] [facility] Address [address] [address] Care Team Providers Care Wet Machine Cutter Name Role Phone Kevyn Baezan Primary Care Provider Migration, Provider Unavailable Unavailable Results Component Value Reference Range Notes COMPREHENSIVE METABOLIC PANE L Reviewed date:08/19/2023 10:09:54 AM Interpretation: Performing Lab:[facility], [address], [place], [address] Flo Echavarria Notes/Report: VITAMIN D, 25-HYDROXY, LC/MS /MS Reviewed date:08/19/2023 10:10:20 AM Interpretation: Performing Lab:[facility], [address] [place], [address] Flo Echavarria MD Notes/Report: ACTH, PLASMA Reviewed date:08/23/2023 09:01:47 PM Interpretation: Performing Lab:Melissa COBB[facility], [address], [place], [address] Dudley Mendez M.D.,PhD Notes/Report: T3, FREE Reviewed date:08/19/2023 10:09:12 AM Interpretation: Performing Lab:[facility], [address] [place], [address] Flo Echavarria MD Notes/Report: CORTISOL, TOTAL Reviewed date:08/19/2023 10:09:24 AM Interpretation: Performing Lab:[facility], [address] [place], [address] Flo Echavarria MD Notes/Report: CBC (INCLUDES DIFF/PLT) Reviewed date:08/19/2023 10:09:36 AM Interpretation: Performing Lab:Melissa VASQUE[facility], [address] [place], [address] Flo Echavarria Notes/Report: IRON AND TOTAL IRON BINDING CAPACITY Reviewed date:08/19/2023 10:08:02 AM Interpretation: Performing Lab:[facility], [address] [place], [place], [address] Flo Echavarria MD Notes/Report: T4, FREE Reviewed date:08/19/2023 10:09:18 AM Interpretation: Performing Lab:[facility], [address], [place], [address] Flo Echavarria MD Notes/Report: TSH Reviewed date:08/19/2023 10:09:06 AM Interpretation: Performing Lab:Melissa [facility], [address] [place], [address] Flo Echavarria Notes/Report: VITAMIN B12 Reviewed date:08/19/2023 10:10:01 AM Interpretation: Performing Lab:[facility], [address], [place], [address] Flo Echavarria MD Notes/Report: MAGNESIUM, RBC Reviewed date:08/23/2023 09:01:38 PM Interpretation: Performing Lab:Melissa [facility], [address] [place], [address] Luis Antonio Swift M.D. Notes/Report: MAGNESIUM, RBC 5.4 4.0-6.4 mg/dL This test was developed and its analytical performance characteristics have been determined by [employer]. It has not been cleared or approved by the FDA. This assay has been validated pursuant to the CLIA regulations and is used for clinical purposes. DEXAMETHASONE Reviewed date:11/29/2023 08:18:44 PM Interpretation: Performing Lab:Melissa DESHPANDE/[facility], [address] [place], [address] Juliana Powell MD,PhD,ANGELLA Notes/Report: DEXAMETHASONE 215 Reference Ranges for Dexamethasone: Baseline: Less than 20 ng/dL 1 mg dexamethasone overnight: 180-550 ng/dL (8:00-10:00 AM) This test was developed and its analytical performance characteristics have been determined by [employer]. It has not been cleared or approved by FDA. This assay has been validated pursuant to the CLIA regulations and is used for clinical purposes. CORTISOL, TOTAL Reviewed date:11/22/2023 08:00:18 PM Interpretation: Performing Lab:[facility], [address], [place], [address] Flo Echavarria MD Notes/Report: COMPREHENSIVE METABOLIC PANE L Reviewed date:12/09/2023 08:09:17 PM Interpretation: Performing Lab:[facility], [address], [place], [address] Flo Echavarria Notes/Report: FASTING:YES FASTING: YES ACTH, PLASMA Reviewed date:12/14/2023 07:46:32 PM Interpretation: Performing Lab:Melissa COBB[facility], [address] [facility] , [place], [address] Dudley Mendez M.D.,PhD Notes/Report: FASTING:YES FASTING: YES T3, FREE Reviewed date:12/11/2023 08:20:29 PM Interpretation: Performing Lab:[facility], [address], [place], [address] Flo Echavarria MD Notes/Report: FASTING:YES FASTING: YES CORTISOL, TOTAL Reviewed date:12/11/2023 08:20:53 PM Interpretation: Performing Lab:[facility], [address], [place], [address] Flo Echavarria MD Notes/Report: FASTING:YES FASTING: YES DHEA SULFATE Reviewed date:12/11/2023 07:58:20 PM Interpretation: Performing Lab:[facility], [address], [place], [address] Flo Echavarria MD Notes/Report: FASTING:YES FASTING: YES CBC (INCLUDES DIFF/PLT) Reviewed date:12/09/2023 08:11:18 PM Interpretation: Performing Lab:[facility], [address] [place], [address] [facility] Notes/Report: FASTING:YES FASTING: YES T4, FREE Reviewed date:12/09/2023 08:14:02 PM Interpretation: Performing Lab:[facility], [address] [place], [address] [facility] Notes/Report: FASTING:YES FASTING: YES TSH Reviewed date:12/09/2023 08:14:25 PM Interpretation: Performing Lab:[facility], [facility] [place], [address] [facility] Notes/Report: FASTING:YES FASTING: YES TESTOSTERONE, FREE (DIALYSIS ) AND TOTAL,MS Reviewed date:12/14/2023 07:46:24 PM Interpretation: Performing Lab:[facility], [facility], [address] [place] [address], [address], [place], [address] Ritika Cruz MD,PhD Notes/Report: FASTING:YES FASTING: YES TESTOSTERONE, TOTAL, MS [address] ng/dL Men with clinically significant hypogonadal symptoms and testosterone values repeatedly in the range of the 200-300 ng/dL or less, may benefit from testosterone treatment after adequate risk and benefits counseling. For additional information, please refer to https://education.[employer].com/faq/MLX701 (This link is being provided for informational/educational purposes only.) (Note) This test was developed and its analytical performance characteristics have been determined by [employer]. It has not been cleared or approved by the FDA. This assay has been validated pursuant to the CLIA regulations and is used for clinical purposes. TESTOSTERONE, FREE 63 35.0-155.0 pg/mL (Note) This test was developed and its analytical performance characteristics have been determined by [employer]. It has not been cleared or approved by the FDA. This assay has been validated pursuant to the CLIA regulations and is used for clinical purposes. [facility] [address] [place] [address],[address] [facility] [address] Ritika Cruz MD, PhD Reason For Referral [...] Status Risk Notes Problem Vitamin D deficiency (73296130) Vitamin D deficiency, unspecified (E55.9) Active confirmed Problem Hyperlipidemia (04992570) Hyperlipidemia, unspecified (E78.5) Active confirmed Problem Essential hypertension (65085301) Essential (primary) hypertension (I10) Active confirmed Problem Hypothyroidism (68551691) Hypothyroidism, unspecified (E03.9) Active confirmed Problem Obesity (677429549) Obesity, unspecified (E66.9) Active confirmed Problem Uncomplicated asthma (disorder) (255275630) Unspecified asthma, uncomplicated (J45.909) Active confirmed Problem Neutropenia (601267862) Neutropenia, unspecified (D70.9) Active confirmed Problem Disorder of adrenal gland (02416300) Disorder of adrenal gland, unspecified (E27.9) Active confirmed Problem Mixed hyperlipidemia (760735162) Mixed hyperlipidemia (E78.2) Active confirmed Problem Generalized anxiety disorder (53134506) Generalized anxiety disorder (F41.1) Active confirmed Problem Crohn's disease (96337383) Crohn's disease, unspecified, without complications (K50.90) Active confirmed Vital Signs Heart Rate 70 /min 12/15/2023 Respiratory Rate 12 /min 12/15/2023 Blood pressure diastolic 86 mm Hg 12/15/2023 Height 71 in 12/15/2023 Blood pressure systolic 134 mm Hg 12/15/2023 Weight 275 lbs 12/15/2023 BMI 38.35 kg/m2 12/15/2023 Encounters Encounter Location Date Provider Diagnosis [facility], [facility] [address] [place] [address] 04/25/2024 [facility] [employer] [place] [address] [address] 01/09/2024 Provider Migration Generalized anxiety disorder F41.1 and Obesity, unspecified E66.9 [facility]- [address]. Mao [address] [place] [address] 08/14/2023 Susan Baeza [facility], [facility] - Susan Baeza [address] [place] [address] 08/31/2023 Susan Baeza [facility], [facility] - Susan [employer] [address] [place] [address] 11/05/2023 Susan Baeza [facility], [facility] - Susan [employer] [address] [place] [address] 2023 Susan [facility] [address] [place] [address] 12/29/2023 [employer] [facility], [facility] - Susan [employer] [address] [place] [address] 08/31/2023 Susan Baeza Hypothyroidism, unspecified E03.9 ; Other fatigue R53.83 and Abnormal weight gain R63.5 [facility] - Susan [employer] [address] [place] [address] 12/15/2023 Susan Baeza Hypothyroidism, unspecified E03.9 ; [...] and/or evaluation, counseling and educating the patient/family/care aid, ordering medications, tests, or procedures, referring and communicating with other health home care attendant, documenting clinical information in the electronic or other health record, independently interpreting results and communicating results to the patient/family/care aid and care coordinating patient plan. Patient alert [...] and/or evaluation, counseling and educating the patient/family/care aid, ordering medications, tests, or procedures, referring and communicating with other health home care attendant, documenting clinical information in the electronic or other health record, independently interpreting results and communicating results to the patient/family/care aid and care coordinating patient plan. Patient alert [...] Date Coverage End Date Medicare [address] [address] [place] [address] [id number] Bob Byrd Self - patient is the insured Medicaid [place] [address] [address] [place] [address] [id number] Bob Byrd Self - patient is the insured Medical (General) History Medical History History ICD Code Unspecified asthma, uncomplicated J45.90 9 Neutropenia, unspecified D70.9 Hypothyroidism, unspecified E03.9 Essential (primary) hypertension I10 Hyperlipidemia, unspecified E78.5
--- OUTSIDE RECORDS SUMMARY | 2024-07-03 23:12 | XMS_ITS | Encounter Summary ---
Author Organization [facility] Address [facility] [facility] [place] [address] Care Team Providers Care Oyster Bed Worker Name Role Phone Stella Mcneill Primary Care Provider + Mukesh Maldonado MD Unavailable [phone] Jazlyn Villarreal MD Unavailable Lucila King MD Primary Care Provider [phone] St[facility] Primary Care Provider + Reason for Visit * Reason Comments Refill Request Encounter Details Date Type Department Care Team (Late st Contact Info) Description 11/10/2018 Refill [facility] Pediatrics - Endocrinology [address] [place] [id number] Gerry Randhawa MD [address] [place] [id number] Refill Request Social History Tobacco Use Types Packs/Day Years Used Date Smoking Tobacco: Passive Smo ke Exposure - Never Smoker Smokeless Tobacco: Never Alcohol Use Standard Drinks/Week Comments No 0 (1 standard drink = 0.6 oz pur e alcohol) Sex and Gender Information Value Date Recorded Sex Assigned at Not on file Legal Sex Male 5:44 AM HEAD OF QUALITY Gender Identity Not on file Sexual Orientation Not on file documented as of this encounter Plan of Treatment Upcoming Encounters Date Type Department Care Team (Late st Contact Info) Description 07/12/2024 2:20 PM CDT Office Visit [facility] - Hematology/Oncology [address] [place] [address] Jazlyn Villarreal MD [address] [facility] [place] [address] documented as of this encounter Visit Diagnoses Diagnosis Acquired hypothyroidism documented in this encounter Care Teams Oyster Bed Worker Relationship Specialty Start Date End Date Stella Mcneill APRN-[facility] [address] [id number] PCP - General Nurse Practitioner 11/03/18 02/26/22 Lucila King MD [facility] [place] [address] PCP - General 02/27/22 06/13/24 Stella Mcneill APRN-RN ORTHOPAEDICS Family Medicine [address] [address] PCP - General 06/14/24 Mukesh Maldonado MD [facility] [address] Allergy and Immunology 08/30/19 Jazlyn Villarreal MD [address] [place] [address] Regulatory Auditor/Oncologis t Hematology and Oncology 09/15/19 documented as of this encounter
--- OUTSIDE RECORDS SUMMARY | 2024-07-03 23:13 | XMS_ITS | Referral Summary ---
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 Gender Identity Male 06/05/2023 9:33 AM CDT Sexual Orientation Not on file Last Filed Vital Signs Vital Sign Reading Time Taken Comments Blood Pressure 144/86 12/23/2023 1:11 PM CDT Pulse 90 12/23/2023 1:11 PM CDT Temperature 36.5 C (97.7 F) 03/19/2023 1:33 PM HIGH SCHOOL HOME ECONOMICS TEACHER Respiratory Rate - - Oxygen Saturation 96% 12/23/2023 1:11 PM CDT Inhaled Oxygen Concentration - - Weight 122.9 kg (271 lb) 12/23/2023 1:11 PM CDT Height 180.3 cm (5' 11 ) 12/23/2023 1:11 PM CDT Body Mass Index 37.8 12/23/2023 1:11 PM CDT Plan of Treatment Not on file Insurance [facility] MEDICARE MEDICARE [facility] Care Teams Tape Recorder Mechanic Relationship Specialty Start Date End Date Stella Mcneill NP [facility] [place] [address] PCP - General Nurse Practitioner 11/17/23
--- OUTSIDE RECORDS SUMMARY | 2024-07-03 23:13 | XMS_ITS | Clinical Summary ---
Author Organization [facility] Ashley Pardo Address [address] [place] [address] Care Team Providers Care Automatic Oven Operator Name Role Phone Unavailable Primary Care Provider [...] Comments Blood Pressure 115/80 03/17/2024 11:16 AM SCREW SUPERVISOR Pulse 82 02/03/2024 10:29 AM SCREW SUPERVISOR Temperature 36.6 C (97.8 F) 02/03/2024 10:29 AM SCREW SUPERVISOR Respiratory Rate 16 02/03/2024 10:29 AM SCREW SUPERVISOR Oxygen Saturation 100% 02/03/2024 10:29 AM SCREW SUPERVISOR Inhaled Oxygen Concentration - - Weight 124.7 kg (275 lb) 03/17/2024 11:16 AM SCREW SUPERVISOR Height 180.3 cm (5' 11 ) 03/17/2024 11:16 AM SCREW SUPERVISOR Body Mass Index 38.35 03/17/2024 11:16 AM SCREW SUPERVISOR Plan of Treatment Health Maintenance Due Date Last Done Comments DTAP/TDAP/TD VACCINES (7 - T d or Tdap) 10/19/2019 10/18/2009, 06/06/2004, 05/13/2000, Additional history exists INFLUENZA VACCINE (#1) 2023 , 03/16/2019, 01/24/2016, Additional history exists HEPATITIS B VACCINES Completed 08/05/2001, 06/17/2000, 09/12/1999 HPV VACCINES Completed 12/05/2014, 02/24, 10/17/2013 Medical Devices Implanted Type Area Personnel Research Scientist Device Identifier Shelf Expiration Date Model / Serial / Lot Hemostatic Surgifoam [id number] - [id number] Implanted:Qty : 1 on 02/03/2024 by Awais Rowell MD at [facility] Hemostatic N/A: Perianal [employer] [id number] 12/03/2027 1976 / / [id number] Insurance MEDICARE PART A [place] B [place] RX Worksurfers Medicare Part D
--- OUTSIDE RECORDS SUMMARY | 2024-07-03 23:13 | XMS_ITS | Encounter Summary ---
Author Organization [facility] Address [address] [place], [place] [address] [address] Care Team Providers Care Corporate Securities Research Analyst Name Role Phone Mukesh Maldonado MD Unavailable [phone] Jazlyn Villarreal MD Unavailable Stella Mcneill APRN-[facility] Primary Care Provider + Reason for Visit * Reason Comments Refill Request Encounter Details Date Type Department Care Team ([facility] Contact Info) Description 06/27/2024 Refill [facility] [address] [place] [address] Jazlyn Villarreal MD [address] [facility] [place] [address] Refill Request Social History Tobacco Use Types Packs/Day Years Used Date Smoking Tobacco: Never Passive Smoke Exposure: Yes Smokeless Tobacco: Never Alcohol Use Standard Drinks/Week Comments No 0 (1 standard drink = 0.6 oz pur e alcohol) Sex and Gender Information Value Date Recorded Sex Assigned at Not on file Legal Sex Male 5:44 AM REAL ESTATE DEVELOPER Gender Identity Not on file Sexual Orientation Not on file documented as of this encounter Plan of Treatment Upcoming Encounters Date Type Department Care Team ([facility] Contact Info) Description 07/12/2024 2:20 PM CDT Office Visit [facility] - Hematology/Oncology [address] [place] [phone] Jazlyn Villarreal MD [address] [facility] [place] [address] documented as of this encounter Visit Diagnoses Diagnosis Nausea and vomiting, unspecified vomiting type documented in this encounter Care Teams Corporate Securities Research Analyst Relationship Specialty Start Date End Date Stella cMneill APRN-[employer] SALES ENGINEER Family Medicine [address] [address] PCP - General 06/14/24 Mukesh Maldonado MD [address] [place] [address] [place] [address] Allergy and Immunology 08/30/19 Jazlyn Villarreal MD [address] [place] [address] Social Security Benefits Interviewer/Oncologist Hematology and Oncology 09/15/19 documented as of this encounter
--- OUTSIDE RECORDS SUMMARY | 2024-07-03 23:13 | XMS_ITS | Clinical Summary ---
Author Organization [facility] Address [address] [place] [address] Care Team Providers Care Grinding Machine Operator Portable Name Role Phone Stella Mcneill NP Primary Care Provider [phone] Allergies Active Allergy Reactions Criticality Noted Date [...] on file Legal Sex Male 5:45 AM TOASTER OPERATOR Gender Identity Male 06/05/2023 9:33 AM CDT Sexual Orientation Not on file Obstetrics History Last Filed Vital Signs Vital Sign Reading Time Taken Comments Blood Pressure 144/86 12/23/2023 1:11 PM CDT Pulse 90 12/23/2023 1:11 PM CDT Temperature 36.5 C (97.7 F) 03/19/2023 1:33 PM TOASTER OPERATOR Respiratory Rate - - Oxygen Saturation 96% [...] HPV Vaccines Completed 12/05/2014, 02/24, 10/17/2013 Insurance [facility] MEDICARE MEDICARE [place] Care Teams Grinding Machine Operator Portable Relationship Specialty Start Date End Date Stella Mcneill NP [facility] [place] [address] PCP - General Nurse Practitioner 11/17/23
--- OUTSIDE RECORDS SUMMARY | 2024-07-03 23:13 | XMS_ITS ---
Author Organization [facility] Address [address] [place] [address] Care Team Providers Care Tool Crib Supervisor Name Role Phone Susan Baeza Primary Care Provider REASON FOR VISIT f/u alex Encounters Encounter Location Date Provider Diagnosis [facility] - Susan Baeza [address] [place] [address] 04/25/2024 Susan Baeza Plan Of Treatment No Information Progress Notes * Diego BYRDKatelynOB:2000 ( 23 yo M)Acc No.[id number]:04/25/2024 Progress Notes Patient: Bob PINEDA Provider: Anupama Baeza MD :2000 A ge:23 Y S ex:Male Date:04/25/2024 [facility] Subjective: * Chief Complaints: * 1 . F/u alex. * Medical History: Objective: * Vitals: Assessment: Plan: * Treatment: * Billing Information: * Visit Code: * Procedure Codes: * Electronic signature of Kevyn Baeza MD on 07/03/2024 at 11:12 PM CDT Sign off status: Pending * Provider: Anupama Baeza MD Date: 04/25/2024 Generated for Jordani ng/Fafrankieg/eTransmitting on: 07/03/2024 11:12 PM CDT
--- OUTSIDE RECORDS SUMMARY | 2024-07-03 23:13 | XMS_ITS | CONTINUITY OF CARE DOCUMENT ---
Author Name corazon chandra Address Unknown Organization [facility] Address [address] [facility] [address] [place] [address] Phone [phone] Care Team Providers Care Restrooms Or Lounges Maid Name Role Phone Chad TSE, Zhao Unavailable [phone] Zhao Bonilla MD Unavailable INSURANCE PROVIDERS Payer name Policy type / Coverage type [place] [employer] party ID HEALTHCARE AND FAMILY SERVICES Medicaid 1 [id number] [place] Medicare [id number]
--- OUTSIDE RECORDS SUMMARY | 2024-07-03 23:13 | XMS_ITS | Clinical Summary ---
Author Organization [facility] Pervasip Address [address] [place] [address] Care Team Providers Care Marketing Research Analyst Name Role Phone Mukesh Maldonado MD Unavailable [phone] Jazlyn Villarreal MD Unavailable [phone] Stella Mcneill APRN-[facility] Primary Care Provider + Source Comments [facility],non-owned Affiliates and Associated Physician Practices is amultiple site organization consisting of ambulatory clinics and hospital sitesin [place], [place] and [place]. This disclosure is being madepursuant to the Care Everywhere program and may not contain all information available regarding this patient. Last updated 17.[facility] Allergies Active Allergy Reactions Criticality Noted Date [...] 5 tablet 10/15/19 22 Active HYDROcodone-stephen taminophen ([place]) 7.5-325 MG tablet Take 1 (one) tablet [...] on routine screening biochemistries and managed at [facility] until recently when insurance coverage changed and no longer at accepted at [facility]. No prior medical records available at the [...] 4 3. Follow up with local adult patch washer Assessment & Plan (04/13/2017 9:54 AM FIELD HAULER): Acquired hypothyroidism 1. L-thyroxine 0.125 mg daily 2. Obtain serum TSH and total T4 following today's office appointment 3. Return appointment in one year Assessment & Plan (04/01/2016 2:06 PM FIELD HAULER): 1. L-thyroxine 0.125 mg daily. 2. Obtain serum TSH and total T4 level following today's office appointment. 3. Counseled regarding medication adherence, keeping return appointments for blood specimen collections, return visits, and risks of developing other autoimmune diseases (diabetes mellitus, hypoparathyroidism). 4. Obtain serum TSH in six months. 5. Return appointment in one year. Assessment & Plan (01/08/2015 3:16 PM FIELD HAULER): 1. L-thyroxine 0.1 mg daily. 2. Obtain [...] completed. Assessment & Plan (04/13/2017 9:53 AM FIELD HAULER): Acanthosis nigricans; morbid obesity, BMI > 43 (> 99th percentile); FH diabetes mellitus; at risk of developing diabetes mellitus 1. Fasting glucose, lipid profile, hemoglobin A1c 2. Dietary/exercise counseling provided 3. Referral to clinical chief technical officer 4. Reviewed signs/symptoms/treatment of diabetes mellitus Assessment & Plan (04/01/2016 2:08 PM FIELD HAULER): At risk of developing diabetes mellitus. 1. Obtain fasting comprehensive metabolic panel, hemoglobin A1c, lipid profile. 2. Dietary/exercise counseling provided - to facilate current weight loss (portion size control, decrease dietary concentrated sweets/fats; avoid skipped meals, limit TV . Assessment & Plan (01/08/2015 3:15 PM FIELD HAULER): At risk of developing diabetes mellitus. 1. Signs/symptoms of diabetes mellitus reviewed. 2. Dietary counseling provided. 3. Obtain serum glucose and hemoglobin A1c level following today's office appointment (laboratory requisition given at the time of the appointment). 4. Return appointment in six months. Encounters Date Type Department Care Team Description 06/27/2024 Refill [facility] [address] [place] [phone] Jazlyn Villarreal MD Refill Request 06/14/2024 1:20 PM CDT Office Visit [facility] - Hematology/Oncology [address] [place] [phone] Jazlyn Villarreal MD Neutropenia, unspecified type (Primary Dx); Other termite control servicer (current) drug therapy 06/14/2024 12:30 PM CDT - 06/14/2024 11:59 PM CDT Hospital Encounter [facility] CANCER CARE DRAWSTATION [address] [place] [address], 2nd [place] [address] Discharge Disposition: Home or Self Care 06/14/2024 Travel 06/11/2024 Orders Only [facility] PHYS HEM/ONC [address] [place] [phone] Jazlyn Villarreal MD Chronic benign neutropenia 06/10/2024 Orders Only [facility] PHYS HEM/ONC [address] [place] [phone] Jazlyn Villarreal MD Chronic benign neutropenia 06/08/2024 Orders Only [facility] B[facility] CLINIC [address] [place] [phone] Jazlyn Villarreal MD 05/27/2024 Refill [facility] CL[facility] [address] [place] [phone] Chuck Lama RN MEDICATION REFILL 05/13/2024 9:56 AM CDT - 05/13/2024 11:59 PM CDT Hospital Encounter [facility] US [address] [place] [phone] Jazlyn Villarreal MD Discharge Disposition: Home or Self Care 05/13/2024 Travel 05/10/2024 Orders Only [facility] - Hematology/Oncology [address] [place] [phone] Jazlyn Villarreal MD Neutropenia, unspecified type 04/25/2024 Telephone [facility] - Hematology/Oncology [address] [place] [phone] Jazlyn Villarreal MD Medication Prior Auth Request 04/25/2024 Telephone [facility] - Hematology/Oncology [address] [place] [phone] Jazlyn Villarreal MD Medication Prior Auth Request 04/22/2024 Telephone [facility] - Hematology/Oncology [address] [place] [phone] Jazlyn Villarreal MD Medication Prior Auth Request 04/22/2024 Telephone [facility] - Hematology/Oncology [address] [place] [phone] Jazlyn Villarreal MD Medication Prior Auth Request 04/22/2024 Orders Only [facility] CL[facility] [address] [place] [phone] Chuck Lama RN 04/19/2024 1:40 PM FIELD HAULER Office Visit [facility] - Hematology/Oncology [address] [place] [phone] Lucila King MD Rajeh, Mhd Nabeel, MD Neutropenia, unspecified type (Primary Dx); Chronic benign neutropenia 04/19/2024 1:09 PM FIELD HAULER - 04/19/2024 11:59 PM FIELD HAULER Hospital Encounter [facility] LAB OP DRAW STATION [address] [place] [phone] Lucila King MD Discharge Disposition: Home or Self Care 04/19/2024 Telephone [facility] - Hematology/Oncology [address] [place] [phone] Jazlyn Villarreal MD Medication Prior Auth Request 04/19/2024 Telephone [facility] - Hematology/Oncology [address] [place] [phone] Jazlyn Villarreal MD 04/19/2024 Orders Only [facility] [address] [place] [phone] Susan Sanches, PHOTOGRAPH PRINTER-BATHHOUSE KEEPER 04/19/2024 Travel 04/15/2024 Orders Only [facility] - Hematology/Oncology [address] [place] [phone] Jazlyn Villarreal MD Chronic benign [...] on file Legal Sex Male 5:44 AM FIELD HAULER Gender Identity Not on file Sexual Orientation [...] Description 07/12/2024 2:20 PM CDT Office Visit [facility] - Hematology/Oncology [address] [place] [phone] Jazlyn Villarreal MD [address] [facility] [place] [address] Health Maintenance Due Date Last Done Comments [...] 1:07 PM CDT Neutropenia, unspecified type Other prison (current) drug therapy FOLATE Routine 06/14/2024 1:07 [...] W AUTO DIFFERENTIAL Routine 04/19/19 1:16 PM FIELD HAULER Neutropenia, unspecified type COMPREHENSIVE METABOLIC PANEL Routine 04/19/2024 1:16 PM FIELD HAULER Neutropenia, unspecified type MAGNESIUM BLOOD Routine 04/19/2024 1:16 PM FIELD HAULER Neutropenia, unspecified type PHOSPHORUS BLOOD Routine 04/19/2024 1:16 PM FIELD HAULER Neutropenia, unspecified type HIV-1 HIV-2 ANTIBODY + HIV P24 AG PANEL Routine 09/10/2021 3:11 PM CDT Leukopenia, unspecified type from Last 3 Months or Most Recently Relevant to Health Maintenance Results * (ABNORMAL) CBC WITH DIFFERENTIAL (06/14/2024 1:07 PM CDT) Only the most recent of2 resultswithin the time period is included. WBC 6.9 4.0 - 10.7 x10E9/L 06/14/2024 1:43 PM CDT [facility] LABORATORY [facility] RBC Count 5.64 4.30 - 5.80 x10E12/L 06/14/2024 1:43 PM CDT [facility] Hemoglobin 16.4 13.3 - 17.5 g/dL 06/14/2024 1:43 PM CDT [facility] Hematocrit 46.2 38.7 - 51.1 % 06/14/2024 1:43 PM CDT [facility]ORY [facility] MCV 81.9 80.0 - 98.0 fL 06/14/2024 1:43 PM [facility] MCH 29.1 26.7 - 33.6 pg 06/14/2024 1:43 PM [facility] MCHC 35.5 31.7 - 36.3 g/dL 06/14/2024 1:43 PM [facility] RDW-CV 12.2 11.3 - 14.8 % 06/14/2024 1:43 PM [facility] Platelet Count 82(L) 150 - 420 x10E9/L 06/14/2024 1:43 PM [facility] MPV 06/14/2024 1:43 PM [facility] Comment:Unable to report Neutrophil % 70.2 41.0 - 74.0 % 06/14/2024 1:43 PM [facility] Lymphocyte % 17.6 17.0 - 47.0 % 06/14/2024 1:43 PM [facility] Monocyte % 9.1 3.0 - 11.0 % 06/14/2024 1:43 PM [facility] Eosinophil % 1.3 0.0 - 7.0 % 06/14/2024 1:43 PM [facility] Basophil % 0.9 0.0 - 1.6 % 06/14/2024 1:43 PM [facility] Immature Granulocytes % 0.9 0.0 - 1.0 % 06/14/2024 1:43 PM [facility] Neutrophil Absolute 4.88 1.60 - 7.50 x10E9/L 06/14/2024 1:43 PM [facility] Lymphocyte Absolute 1.22 1.00 - 4.40 x10E9/L 06/14/2024 1:43 PM [facility] Monocyte Absolute 0.63 0.15 - 1.00 x10E9/L 06/14/2024 1:43 PM [facility] Eosinophil Absolute 0.09 0.00 - 0.60 x10E9/L 06/14/2024 1:43 PM [facility] Basophil Absolute 0.06 0.00 - 0.13 x10E9/L 06/14/2024 1:43 PM [facility] Blood BLOOD SPECIMEN / Unknown Lab Venipuncture / Unknown 06/14/2024 1:07 PM CDT 06/14/2024 1:17 PM CDT [facility] Sohan Villarreal MD LAB - HEMATOLOGY ORDERABLES Final Result [facility] [address] [place] [address], [facility] [phone] * (ABNORMAL) COMPREHENSIVE METABOLIC PANEL (06/14/2024 1:07 PM CDT) Only the most recent of2 resultswithin the time period is included. BUN 12 7 - 26 mg/dL 06/14/2024 1:52 PM [facility] Creatinine 0.96 0.71 - 1.16 mg/dL 06/14/2024 1:52 PM [facility] Sodium 142 136 - 145 mmol/L 06/14/2024 1:52 PM [facility] Potassium 4.2 3.5 - 4.5 mmol/L 06/14/2024 1:52 PM [facility] Chloride 104 98 - 107 mmol/L 06/14/2024 1:52 PM [facility] CO2 25 22 - 29 mmol/L 06/14/2024 1:52 PM [facility] Glucose 88 70 - 99 mg/dL 06/14/2024 1:52 PM [facility] Calcium 9.2 8.4 - 10.2 mg/dL 06/14/2024 1:52 PM [facility] Protein Total 7.3 6.0 - 8.3 g/dL 06/14/2024 1:52 PM [facility] Albumin 4.6 3.4 - 5.0 g/dL 06/14/2024 1:52 PM [facility] Bilirubin Total 1.6(H) 0.2 - 1.2 mg/dL 06/14/2024 1:52 PM [facility] Alkaline Phosphatase 64 40 - 150 U/L 06/14/2024 1:52 PM [facility] ALT 32 5 - 55 U/L 06/14/2024 1:52 PM CDT [facility] AST 17 5 - 34 U/L 06/14/2024 1:52 PM CDT [facility] Anion Gap 13 6 - 16 06/14/2024 1:52 PM CDT [facility] BUN/Creatinine Ratio 13 7 - 23 06/14/2024 1:52 PM CDT [facility] Osmolality Calculated 293 275 - 295 mOsm/kg 06/14/2024 1:52 PM T [facility] Albumin/Globulin Ratio 1.7 1.1 - 2.3 06/14/2024 1:52 PM T [facility] eGFR by CKD-EPI >90 >=90 mL/min/1.7 3 m2 06/14/2024 1:52 PM CDT [facility] Blood BLOOD SPECIMEN / Unknown Lab Venipuncture / Unknown 06/14/2024 1:07 PM CDT 06/14/2024 1:17 PM CDT [facility] Sohan Villarreal MD LAB - CHEMISTRY ORDERABLES F inal Result Performing Organization Address City/[facility]/ZIP Co de Phone Number [address] [address], [facility] [phone] * PHOSPHORUS BLOOD (06/14/2024 1:07 PM CDT) Only the most recent of2 resultswithin the time period is included. Phosphorus 4.3 2.8 - 5.1 mg/dL 06/14/2024 1:52 PM T [facility] Blood BLOOD SPECIMEN / Unknown Lab Venipuncture / Unknown 06/14/2024 1:07 PM CDT 06/14/2024 1:17 PM CDT [facility] Sohan Villarreal MD LAB - CHEMISTRY ORDERABLES F inal Result [address] [address], [place] [phone] * MAGNESIUM BLOOD (06/14/2024 1:07 PM CDT) Only the most recent of2 resultswithin the time period is included. [facility] Magnesium 2.0 1.6 - 2.6 mg/dL 06/14/2024 1:52 PM CDT [facility] Blood BLOOD SPECIMEN / Unknown Lab Venipuncture / Unknown 06/14/2024 1:07 PM CDT 06/14/2024 1:17 PM [facility]T [facility] - CHEMISTRY ORDERABLES F inal Result [address] [address], [place] [phone] * (ABNORMAL) LDH BLOOD (06/14/2024 1:07 PM CDT) [facility] LDH Total 98(L) 125 - 243 Units/L 06/14/2024 1:52 PM CDT [facility] Blood BLOOD SPECIMEN / Unknown Lab Venipuncture / Unknown 06/14/2024 1:07 PM CDT 06/14/2024 1:17 PM CDT Jazlyn Villarreal MD LAB - CHEMISTRY ORDERABLES F inal Result Performing Organization Address City/[facility]/ZIP Co de Phone Number [address] [address], [place] [phone] * FOLATE (06/14/2024 1:07 PM CDT) [facility] Folate 12.9 7.0 - 31.4 ng/mL 06/14/2024 2:24 PM CDT [facility] Blood BLOOD SPECIMEN / Unknown Lab Venipuncture / Unknown 06/14/2024 1:07 PM CDT 06/14/2024 1:17 PM CDT Jazlyn Villarreal MD LAB - CHEMISTRY ORDERABLES F inal Result [address] [address], [place] [phone] * VITAMIN B12 (06/14/2024 1:07 PM CDT) Vitamin B12 739 213 - 816 pg/mL 06/14/2024 2:24 PM CDT [facility]ORATORY [facility] Blood BLOOD SPECIMEN / Unknown Lab Venipuncture / Unknown 06/14/2024 1:07 PM CDT 06/14/2024 1:17 PM CDT [facility] Sohan Villarreal MD LAB - CHEMISTRY ORDERABLES F inal Result [address] [address], [facility] [phone] * (ABNORMAL) IMMUNOGLOBULINS IGG/IGM/IGA PANEL (06/14/2024 1:07 PM CDT) IgG 973 767 - 1,590 mg/dL 06/14/2024 2:40 PM CDT [facility] IgM 47 37 - 286 mg/dL 06/14/2024 2:40 PM CDT [facility] IgA 39(L) 61 - 356 mg/dL 06/14/2024 2:40 PM CDT [facility] Blood BLOOD SPECIMEN / Unknown Lab Venipuncture / Unknown 06/14/2024 1:07 PM CDT 06/14/2024 2:14 PM CDT [facility] LAB - CHEMISTRY ORDERABLES F inal Result [address] [address], [place] [phone] * US Abdomen Limited (05/13/2024 10:29 AM [...] performed with DICOM image capture performed by radiographic technologist. FINDINGS: Spleen is enlarged and measures [...] Roderick Osei MD on 512:15 PM us [facility] Sohan Villarreal MD US ORDERABLES Final Result * HIV-1 HIV-2 ANTIBODY + HIV P24 AG PANEL (09/10/2021 3:11 PM CDT) HIV Antigen/Antibod y 1 & 2 Non-reacti ve Non-react juan m 09/10/2021 4:44 PM CDT [facility] Comment:No Laboratory eviden ce of HIV infection. Blood BLOOD SPECIMEN / Unknown Lab Venipuncture / Unknown 09/10/2021 3:11 PM CDT 09/10/2021 3:28 PM CDT us Jazlyn Villarreal MD LAB - CHEMISTRY ORDERABLES F inal Result [facility] [address] [place] [phone] [phone] from Last 3 Months or Most Recently Relevant to Health Maintenance Insurance MEDICARE MEDICAID - [place] Care Teams Marketing Research Analyst Relationship Specialty Start Date End Date Stella Mcneill APRN-[facility] Family Medicine [address] [address] PCP - General 06/14/24 Mukesh Maldonado MD [address] [place] [address] [facility] [place] [address] Allergy and Immunology 08/30/19 Jazlyn Villarreal MD [address] [place] [address] Peanut Blancher/Oncologist Hematology and Oncology 09/15/19
--- OUTSIDE RECORDS SUMMARY | 2024-07-03 23:13 | XMS_ITS | Clinical Summary ---
Author Organization [facility] Address [address] [place] [address] Care Team Providers Care Offset Machine Operator Name Role Phone Lucila Turner MD Primary Care Provider [phone] Allergies Active Allergy Reactions Criticality Noted Date [...] Tobacco: Never Tobacco Cessation:Counseling Given: Not Answered [facility] Utilities Answer Date Recorded In the past 12 months has [employer], oil, or water [employer] threatened to shut off services in your [...] week 02/06/2023 How often do you attend [facility] or sabianist services? More than 4 times per year 02/06/2023 Do you belong to any clubs o r organizations such as mandaeism groups, unions, fraternal or athletic groups, or [...] and heating? Not hard at all 02/06/2023 [facility] - Occupational [...] place to sleep or slept in a mcc (including now)? No 02/06/2023 Sex and Gender Information Value Date Recorded Sex Assigned at Not on file Legal Sex Male 3:52 PM WALLPAPER INSPECTOR AND SHIPPER Gender Identity Not on file Sexual Orientation Not on file Last Filed Vital Signs Vital Sign Reading Time Taken Comments Blood Pressure 126/74 02/07/2023 8:35 AM WALLPAPER INSPECTOR AND SHIPPER Pulse 116 02/06/2023 1:00 PM WALLPAPER INSPECTOR AND SHIPPER Temperature 36.1 C (97 F) 02/07/2023 6:21 AM WALLPAPER INSPECTOR AND SHIPPER Respiratory Rate 20 02/06/2023 8:40 PM WALLPAPER INSPECTOR AND SHIPPER Oxygen Saturation 95% 02/07/2023 8:35 AM WALLPAPER INSPECTOR AND SHIPPER Inhaled Oxygen Concentration - - Weight 128.8 kg (284 lb) 02/05/2023 3:53 PM WALLPAPER INSPECTOR AND SHIPPER Height 180.3 cm (5' 11 ) 02/05/2023 3:53 PM WALLPAPER INSPECTOR AND SHIPPER Body Mass Index 39.61 02/05/2023 3:53 PM WALLPAPER INSPECTOR AND SHIPPER Plan of Treatment Health Maintenance Due Date [...] 10:43 PM 02/07/2023 1:35 PM Care Teams Offset Machine Operator Relationship Specialty Start Date End Date Lucila Turner MD [address] [place] [address] PCP - General FAMILY PRACTICE 02/05/23
--- OUTSIDE RECORDS SUMMARY | 2024-07-03 23:13 | XMS_ITS | Continuity of Care Document ---
Author Organization [facility] Address [address] [place] [address] [address] [place] [address] Phone Care Team Providers Care Oral Surgery Assistant Name Role Phone Pauline Fall Unavailable Unavailable Procedures Procedure Date Visual Field Examination(s) Eye Exam, New Patient Refraction Advance Directives Directive Yes / No Effective Date File Name No Information Encounters Encounter Description Practice Location Reason(s) For Visit Diagnoses Date Provider Providers Copied on Encounter [facility], [address], [place], [place], [id number], [place] tel:[phone] [facility] No Information [address] [facility] , [address], [place], [address], [place]. tel:[phone] Referring Provider: Pauline Jha, [address] [facility] [address], [place], [place], [facility]. tel:[phone] Family History Family Member Type Diagnosis Age At Onset No Information Payers Payer name Insurance type Covered green party ID Authoriza tion(s) Medicaid [facility] [id number] Social History Type Description Quantity Date Captured [...]
--- OUTSIDE RECORDS SUMMARY | 2024-07-03 23:13 | XMS_ITS ---
Author Organization [facility] Address [address] [place] [address] Care Team Providers Care Domestic Freight Forwarder Name Role Phone Susan Baeza Primary Care Provider REASON FOR VISIT 3 month follow up Encounters Encounter Location Date Provider Diagnosis [facility] - Susan Baeza [address] [place] [address] 03/21/2024 Susan Baeza Plan Of Treatment No Information Progress Notes * Diego BYRDKatelynOB:2000 ( 23 yo M)Acc No.[id number]:03/21/2024 Progress Notes Patient: Bob PINEDA Provider: Anupama Baeza MD :2000 A ge:23 Y S ex:Male Date:03/21/2024 [facility] Subjective: * Chief Complaints: * 1 . 3 month follow up. * Medical History: Objective: * Vitals: Assessment: Plan: * Treatment: * Billing Information: * Visit Code: * Procedure Codes: * Electronic signature of Kevyn Baeza MD on 07/03/2024 at 11:12 PM CDT Sign off status: Pending * Provider: Anupama Baeza MD Date: 0 03/21/2024 Generated for Nicolas dolan/Mitra/eTransmitting on: 0 07/03/2024 11:12 PM CDT
[2024-07-03 23:17] VITALS: BP 151/97; PULSE 104; RESP 14; O2SAT 99
--- OUTSIDE RECORDS SUMMARY | 2024-07-04 00:20 | XMS_ITS | Continuity of Care Document ---
Author Organization [facility] Address [address] [place] [address] [address] [place] [address] Phone Care Team Providers Care Rn Manager Name Role Phone Pauline Fall Unavailable Unavailable Procedures Procedure Date Visual Field Examination(s) Eye Exam, New Patient Refraction Advance Directives Directive Yes / No Effective Date File Name No Information Encounters Encounter Description Practice Location Reason(s) For Visit Diagnoses Date Provider Providers Copied on Encounter [facility], [address], [place], [place], [id number], [place] tel:[phone] [address] [facility] No Information [address] [facility] , [address], [place], [address], [place]. tel:[phone] Referring Provider: Pauline Jha, [address] [facility] [address], [place], [place], [facility]. tel:[phone] Family History Family Member Type Diagnosis Age At Onset No Information Payers Payer name Insurance type Covered democrat ID Authoriza tion(s) Medicaid [facility] [id number] Social History Type Description Quantity Date Captured [...]
--- OUTSIDE RECORDS SUMMARY | 2024-07-04 00:20 | XMS_ITS | Clinical Summary ---
Author Organization [facility] Address [address] [place] [address] Care Team Providers Care Pull Worker Name Role Phone Stella Mcneill NP Primary Care Provider [phone] Allergies Active Allergy Reactions Criticality Noted Date [...] on file Legal Sex Male 5:45 AM INVESTMENT TRADER Gender Identity Male 06/05/2023 9:33 AM CDT Sexual Orientation Not on file Obstetrics History Last Filed Vital Signs Vital Sign Reading Time Taken Comments Blood Pressure 144/86 12/23/2023 1:11 PM CDT Pulse 90 12/23/2023 1:11 PM CDT Temperature 36.5 C (97.7 F) 03/19/2023 1:33 PM INVESTMENT TRADER Respiratory Rate - - Oxygen Saturation 96% [...] HPV Vaccines Completed 12/05/2014, 02/24, 10/17/2013 Insurance [facility] MEDICARE MEDICARE IDPA Care Teams Pull Worker Relationship Specialty Start Date End Date Stella Mcneill NP [facility] [place] [address] PCP - General Nurse Practitioner 11/17/23
--- OUTSIDE RECORDS SUMMARY | 2024-07-04 00:20 | XMS_ITS | Patient Health Record ---
Author Organization [facility] Address [address] [address] Care Team Providers Care News Videotape Editor Name Role Phone Kevyn Baezan Primary Care Provider Migration, Provider Unavailable Unavailable Results Component Value Reference Range Notes COMPREHENSIVE METABOLIC PANE L Reviewed date:08/19/2023 10:09:54 AM Interpretation: Performing Lab:[facility], [address], [place], [address] Flo Echavarria Notes/Report: VITAMIN D, 25-HYDROXY, LC/MS /MS Reviewed date:08/19/2023 10:10:20 AM Interpretation: Performing Lab:[facility], [address] [place], [address] Flo Echavarria MD Notes/Report: ACTH, PLASMA Reviewed date:08/23/2023 09:01:47 PM Interpretation: Performing Lab:Melissa COBB/Say [facility], [address], [place], [address] Dudley Mendez M.D.,PhD Notes/Report: T3, FREE Reviewed date:08/19/2023 10:09:12 AM Interpretation: Performing Lab:[facility], [address] [place], [address] Flo Echavarria MD Notes/Report: CORTISOL, TOTAL Reviewed date:08/19/2023 10:09:24 AM Interpretation: Performing Lab:[facility], [address] [place], [address] Flo Echavarria MD Notes/Report: CBC (INCLUDES DIFF/PLT) Reviewed date:08/19/2023 10:09:36 AM Interpretation: Performing Lab:Melissa VASQUEZ, [address] [place], [address] Flo Echavarria Notes/Report: IRON AND TOTAL IRON BINDING CAPACITY Reviewed date:08/19/2023 10:08:02 AM Interpretation: Performing Lab:[facility], [address] [place], [place], [address] Flo Echavarria MD Notes/Report: T4, FREE Reviewed date:08/19/2023 10:09:18 AM Interpretation: Performing Lab:[facility], [address] [place], [place], [address] Flo Echavarria MD Notes/Report: TSH Reviewed date:08/19/2023 10:09:06 AM Interpretation: Performing Lab:Melissa VASQUEZ, [address] [place], [address] Flo Echavarria Notes/Report: VITAMIN B12 Reviewed date:08/19/2023 10:10:01 AM Interpretation: Performing Lab:[facility], [address], [place], [address] Flo Echavarria MD Notes/Report: MAGNESIUM, RBC Reviewed date:08/23/2023 09:01:38 PM Interpretation: Performing Lab:Melissa LOMELI, [address] [place], [address] Luis Antonio Swift M.D. Notes/Report: MAGNESIUM, RBC 5.4 4.0-6.4 mg/dL This test was developed and its analytical performance characteristics have been determined by [employer]. It has not been cleared or approved by the FDA. This assay has been validated pursuant to the CLIA regulations and is used for clinical purposes. DEXAMETHASONE Reviewed date:11/29/2023 08:18:44 PM Interpretation: Performing Lab:Melissa DESHPANDE/Say [facility],, [address] [place], [address] Juliana Powell MD,PhD,ANGELLA Notes/Report: DEXAMETHASONE 215 Reference Ranges for Dexamethasone: Baseline: Less than 20 ng/dL 1 mg dexamethasone overnight: 180-550 ng/dL (8:00-10:00 AM) This test was developed and its analytical performance characteristics have been determined by [employer]. It has not been cleared or approved by FDA. This assay has been validated pursuant to the CLIA regulations and is used for clinical purposes. CORTISOL, TOTAL Reviewed date:11/22/2023 08:00:18 PM Interpretation: Performing Lab:[facility], [address], [place], [address] Flo Echavarria MD Notes/Report: COMPREHENSIVE METABOLIC PANE L Reviewed date:12/09/2023 08:09:17 PM Interpretation: Performing Lab:[facility], [address], [place], [address] Flo Echavarria Notes/Report: FASTING:YES FASTING: YES ACTH, PLASMA Reviewed date:12/14/2023 07:46:32 PM Interpretation: Performing Lab:Melissa COBB/Say [facility], [address] [facility] , [place], [address] Dudley Mendez M.D.,PhD Notes/Report: FASTING:YES FASTING: YES T3, FREE Reviewed date:12/11/2023 08:20:29 PM Interpretation: Performing Lab:[facility], [address], [place], [address] Flo Echavarria MD Notes/Report: FASTING:YES FASTING: YES CORTISOL, TOTAL Reviewed date:12/11/2023 08:20:53 PM Interpretation: Performing Lab:[facility], [address], [place], [address] Flo Echavarria MD Notes/Report: FASTING:YES FASTING: YES DHEA SULFATE Reviewed date:12/11/2023 07:58:20 PM Interpretation: Performing Lab:[facility], [address], [place], [address] Flo Echavarria MD Notes/Report: FASTING:YES FASTING: YES CBC (INCLUDES DIFF/PLT) Reviewed date:12/09/2023 08:11:18 PM Interpretation: Performing Lab:[facility], [address] [place], [address] [facility] Notes/Report: FASTING:YES FASTING: YES T4, FREE Reviewed date:12/09/2023 08:14:02 PM Interpretation: Performing Lab:[facility], [address] [place], [address] [facility] Notes/Report: FASTING:YES FASTING: YES TSH Reviewed date:12/09/2023 08:14:25 PM Interpretation: Performing Lab:[facility], [facility] [place], [address] [facility] Notes/Report: FASTING:YES FASTING: YES TESTOSTERONE, FREE (DIALYSIS ) AND TOTAL,MS Reviewed date:12/14/2023 07:46:24 PM Interpretation: Performing Lab:[facility], [facility], [address] [place] [address], [address], [place], [address] Ritika Cruz MD,PhD Notes/Report: FASTING:YES FASTING: YES TESTOSTERONE, TOTAL, MS [address] ng/dL Men with clinically significant hypogonadal symptoms and testosterone values repeatedly in the range of the 200-300 ng/dL or less, may benefit from testosterone treatment after adequate risk and benefits counseling. For additional information, please refer to https://education.Super.com/faq/PUU129 (This link is being provided for informational/educational purposes only.) (Note) This test was developed and its analytical performance characteristics have been determined by [employer]. It has not been cleared or approved by the FDA. This assay has been validated pursuant to the CLIA regulations and is used for clinical purposes. TESTOSTERONE, FREE 63 35.0-155.0 pg/mL (Note) This test was developed and its analytical performance characteristics have been determined by [employer]. It has not been cleared or approved by the FDA. This assay has been validated pursuant to the CLIA regulations and is used for clinical purposes. [facility] [address] [place] [address],[address] [facility] [address] Ritika Cruz MD, PhD Reason For Referral [...] Status Risk Notes Problem Vitamin D deficiency (11066754) Vitamin D deficiency, unspecified (E55.9) Active confirmed Problem Hyperlipidemia (86471530) Hyperlipidemia, unspecified (E78.5) Active confirmed Problem Essential hypertension (02795553) Essential (primary) hypertension (I10) Active confirmed Problem Hypothyroidism (72224794) Hypothyroidism, unspecified (E03.9) Active confirmed Problem Obesity (031888035) Obesity, unspecified (E66.9) Active confirmed Problem Uncomplicated asthma (disorder) (328542076) Unspecified asthma, uncomplicated (J45.909) Active confirmed Problem Neutropenia (931687640) Neutropenia, unspecified (D70.9) Active confirmed Problem Disorder of adrenal gland (06204229) Disorder of adrenal gland, unspecified (E27.9) Active confirmed Problem Mixed hyperlipidemia (850630542) Mixed hyperlipidemia (E78.2) Active confirmed Problem Generalized anxiety disorder (19864642) Generalized anxiety disorder (F41.1) Active confirmed Problem Crohn's disease (82440756) Crohn's disease, unspecified, without complications (K50.90) Active confirmed Vital Signs Heart Rate 70 /min 12/15/2023 Respiratory Rate 12 /min 12/15/2023 Blood pressure diastolic 86 mm Hg 12/15/2023 Height 71 in 12/15/2023 Blood pressure systolic 134 mm Hg 12/15/2023 Weight 275 lbs 12/15/2023 BMI 38.35 kg/m2 12/15/2023 Encounters Encounter Location Date Provider Diagnosis [facility], [facility] [address] [place] [address] 04/25/2024 [email or web address] [place] [address] [address] 01/09/2024 Provider Migration Generalized anxiety disorder F41.1 and Obesity, unspecified E66.9 [facility]- [address]. Mao [address] [place] [address] 08/14/2023 Susan Baeza [facility], [facility] - Susan Baeza [address] [place] [address] 08/31/2023 Susan Baeza [facility], [facility] - Susan [email or web address] [address] [place] [address] 11/05/2023 Susan Baeza [facility], [facility] - Susan [email or web address] [address] [place] [address] 2023 Susan [facility] [employer] [address] [place] [address] 12/29/2023 Susan [email or web address], [facility] - Susan [email or web address] [address] [place] [address] 08/31/2023 Susan Baeza Hypothyroidism, unspecified E03.9 ; Other fatigue R53.83 and Abnormal weight gain R63.5 [email or web address], [facility] - Susan [email or web address] [address] [place] [address] 12/15/2023 Susan Baeza Hypothyroidism, unspecified E03.9 ; [...] examination and/or evaluation, counseling and educating the patient/family/children's zoo caretaker, ordering medications, tests, or procedures, referring and communicating with other health long term care administrator, documenting clinical information in the electronic or other health record, independently interpreting results and communicating results to the patient/family/children's zoo caretaker and care coordinating patient plan. Patient alert [...] examination and/or evaluation, counseling and educating the patient/family/children's zoo caretaker, ordering medications, tests, or procedures, referring and communicating with other health long term care administrator, documenting clinical information in the electronic or other health record, independently interpreting results and communicating results to the patient/family/children's zoo caretaker and care coordinating patient plan. Patient alert [...] Date Coverage End Date Medicare [address] [address] [place] [address] [id number] Bob Byrd Self - patient is the insured Medicaid [place] [address] [address] [place] [address] [id number] Bob Byrd Self - patient is the insured Medical (General) History Medical History History ICD Code Unspecified asthma, uncomplicated J45.90 9 Neutropenia, unspecified D70.9 Hypothyroidism, unspecified E03.9 Essential (primary) hypertension I10 Hyperlipidemia, unspecified E78.5
--- OUTSIDE RECORDS SUMMARY | 2024-07-04 00:20 | XMS_ITS ---
Author Organization [facility] Address [address] [place] [address] Care Team Providers Care Fire Tower Keeper Name Role Phone Susan Baeza Primary Care Provider REASON FOR VISIT f/u alex Encounters Encounter Location Date Provider Diagnosis [facility], [facility] - Susan Baeza [address] [place] [address] 04/25/2024 Susan Baeza Plan Of Treatment No Information Progress Notes * Diego BYRDKatelynOB:2000 ( 23 yo M)Acc No.[id number]:04/25/2024 Progress Notes Patient: Bob PINEDA Provider: Anupama Baeza MD :2000 A ge:23 Y S ex:Male Date:04/25/2024 [facility] Subjective: * Chief Complaints: * 1 . F/u alex. * Medical History: Objective: * Vitals: Assessment: Plan: * Treatment: * Billing Information: * Visit Code: * Procedure Codes: * Electronic signature of Kevyn Baeza MD on 07/04/2024 at 12:20 AM CDT Sign off status: Pending * Provider: Anupama Baeza MD Date: 04/25/2024 Generated for Jordani ng/Faejannie/eTransmitting on: 07/04/2024 12:20 AM CDT
--- OUTSIDE RECORDS SUMMARY | 2024-07-04 00:20 | XMS_ITS ---
Author Organization [facility] Address [address] [place] [address] Care Team Providers Care Indoor Landscape Architect Name Role Phone Susan Baeza Primary Care Provider REASON FOR VISIT f/u alex Encounters Encounter Location Date Provider Diagnosis [facility], [facility] - Susan Baeza [address] [place] [address] 04/01/2024 Susan Baeza Plan Of Treatment No Information Progress Notes * Diego BYRDKatelynOB:2000 ( 23 yo M)Acc No.[id number]:04/01/2024 Progress Notes Patient: Bob PINEDA Provider: Anupama Baeza MD :2000 A ge:23 Y S ex:Male Date:04/01/2024 [facility] Subjective: * Chief Complaints: * 1 . F/u alex. * Medical History: Objective: * Vitals: Assessment: Plan: * Treatment: * Billing Information: * Visit Code: * Procedure Codes: * Electronic signature of Kevyn Baeza MD on 07/04/2024 at 12:20 AM CDT Sign off status: Pending * Provider: Anupama Baeza MD Date: 0 04/01/2024 Generated for Jordani ng/Fajeannie/eTransmitting on: 07/04/2024 12:20 AM CDT
--- OUTSIDE RECORDS SUMMARY | 2024-07-04 00:20 | XMS_ITS | Encounter Summary ---
Author Organization [facility] Address [address] [place], [place] [address] [address] Care Team Providers Care Magnet Placer Name Role Phone Mukesh Maldonado MD Unavailable Jazlyn Villarreal MD Unavailable [phone] Stella Mcneill APRN-[facility] Primary Care Provider + Reason for Visit * Reason Comments Refill Request Encounter Details Date Type Department Care Team ([facility] Contact Info) Description 06/27/2024 Refill [facility] [address] [place] [address] Jazlyn Villarreal MD [address] [facility] [place] [address] Refill Request Social History Tobacco Use Types Packs/Day Years Used Date Smoking Tobacco: Never Passive Smoke Exposure: Yes Smokeless Tobacco: Never Alcohol Use Standard Drinks/Week Comments No 0 (1 standard drink = 0.6 oz pur e alcohol) Sex and Gender Information Value Date Recorded Sex Assigned at Not on file Legal Sex Male 5:44 AM SAP PAYROLL CONSULTANT Gender Identity Not on file Sexual Orientation Not on file documented as of this encounter Plan of Treatment Upcoming Encounters Date Type Department Care Team ([facility] Contact Info) Description 07/12/2024 2:20 PM CDT Office Visit [facility] - Hematology/Oncology [address] [place] [address] Jazlyn Villarreal MD [address] [facility] [place] [address] documented as of this encounter Visit Diagnoses Diagnosis Nausea and vomiting, unspecified vomiting type documented in this encounter Care Teams Magnet Placer Relationship Specialty Start Date End Date Stella Mcneill APRN-RN CLINICAL RESEARCH Family Medicine [address] [address] PCP - General 06/14/24 Mukesh Maldonado MD [address] [place] [address] [place] [address] Allergy and Immunology 08/30/19 Jazlyn Villarreal MD [address] [place] [address] Theatre Arts Professor/Oncologist Hematology and Oncology 09/15/19 documented as of this encounter
--- OUTSIDE RECORDS SUMMARY | 2024-07-04 00:20 | XMS_ITS | Clinical Summary ---
Author Organization [facility] Ashley Pardo Address [address] [place] [address] Care Team Providers Care Debeaker Name Role Phone Unavailable Primary Care Provider [...] Comments Blood Pressure 115/80 03/17/2024 11:16 AM THREAD WEAVER Pulse 82 02/03/2024 10:29 AM THREAD WEAVER Temperature 36.6 C (97.8 F) 02/03/2024 10:29 AM THREAD WEAVER Respiratory Rate 16 02/03/2024 10:29 AM THREAD WEAVER Oxygen Saturation 100% 02/03/2024 10:29 AM THREAD WEAVER Inhaled Oxygen Concentration - - Weight 124.7 kg (275 lb) 03/17/2024 11:16 AM THREAD WEAVER Height 180.3 cm (5' 11 ) 03/17/2024 11:16 AM THREAD WEAVER Body Mass Index 38.35 03/17/2024 11:16 AM THREAD WEAVER Plan of Treatment Health Maintenance Due Date Last Done Comments DTAP/TDAP/TD VACCINES (7 - T d or Tdap) 10/19/2019 10/18/2009, 06/06/2004, 05/13/2000, Additional history exists INFLUENZA VACCINE (#1) 2023 , 03/16/2019, 01/24/2016, Additional history exists HEPATITIS B VACCINES Completed 08/05/2001, 06/17/2000, 09/12/1999 HPV VACCINES Completed 12/05/2014, 02/24, 10/17/2013 Medical Devices Implanted Type Area Train Master Device Identifier Shelf Expiration Date Model / Serial / Lot Hemostatic Surgifoam [id number] 1974 - [id number] Implanted:Qty : 1 on 02/03/2024 by Awais Rowell MD at [facility] Hemostatic N/A: Perianal [employer] [id number] 12/03/2027 1974 / / [id number] Insurance MEDICARE PART A AND B [place] MED[place] PART A [place] B [place] RX [employer] Medicare Part D
--- OUTSIDE RECORDS SUMMARY | 2024-07-04 00:20 | XMS_ITS | Encounter Summary ---
Author Organization [facility] Address [facility] [facility] [place] [address] Care Team Providers Care Foreman/Pile Driving And Erection Name Role Phone Stella Mcneill Primary Care Provider + Mukesh Maldonado MD Unavailable [phone] Jazlyn Villarreal MD Unavailable Lucila King MD Primary Care Provider [phone] St[facility] Primary Care Provider + Reason for Visit * Reason Comments Refill Request Encounter Details Date Type Department Care Team (Late st Contact Info) Description 11/10/2018 Refill [facility] Pediatrics - Endocrinology [address] [place] [address] Gerry Randhawa MD [address] [place] [phone] Refill Request Social History Tobacco Use Types Packs/Day Years Used Date Smoking Tobacco: Passive Smo ke Exposure - Never Smoker Smokeless Tobacco: Never Alcohol Use Standard Drinks/Week Comments No 0 (1 standard drink = 0.6 oz pur e alcohol) Sex and Gender Information Value Date Recorded Sex Assigned at Not on file Legal Sex Male 5:44 AM CRAFT ARTIST Gender Identity Not on file Sexual Orientation Not on file documented as of this encounter Plan of Treatment Upcoming Encounters Date Type Department Care Team (Late st Contact Info) Description 07/12/2024 2:20 PM CDT Office Visit [facility] - Hematology/Oncology [address] [place] [address] Jazlyn Villarreal MD [address] [facility] [place] [address] documented as of this encounter Visit Diagnoses Diagnosis Acquired hypothyroidism documented in this encounter Care Teams Foreman/Pile Driving And Erection Relationship Specialty Start Date End Date Stella Mcneill APRN-[facility] [address] [phone] PCP - General Nurse Practitioner 11/03/18 02/26/22 Lucila King MD [facility] [place] [address] PCP - General 02/27/22 06/13/24 Stella Mcneill APRN-CONVEYOR TENDER CONCRETE MIXING PLANT Family Medicine [address] [address] PCP - General 06/14/24 Mukesh Maldonado MD [facility] [place] [address] Allergy and Immunology 08/30/19 Jazlyn Villarreal MD [address] [place] [address] Photo Manager/Oncologis t Hematology and Oncology 09/15/19 documented as of this encounter
--- OUTSIDE RECORDS SUMMARY | 2024-07-04 00:20 | XMS_ITS | CONTINUITY OF CARE DOCUMENT ---
Author Name corazon chandra Address Unknown Organization [facility] Address [address] [place] [address] Phone [phone] Care Team Providers Care Public Address System Installer Name Role Phone Chad TSE, Zhao Unavailable [phone] Zhao Bonilla MD Unavailable INSURANCE PROVIDERS Payer name Policy type / Coverage type [place] red republican ID HEALTHCARE AND FAMILY SERVICES Medicaid 1 [id number] [place] MED[place] Medicare [id number]
--- OUTSIDE RECORDS SUMMARY | 2024-07-04 00:20 | XMS_ITS | Referral Summary ---
Author Organization [facility] Address [address] [place] [address] Care Team Providers Care Blending Line Attendant Name Role Phone Stella Mcneill NP Primary Care Provider [phone] Allergies Active Allergy Reactions Criticality Noted Date [...] on file Legal Sex Male 5:45 AM AIRCRAFT MAINTENANCE ENGINEER Gender Identity Male 06/05/2023 9:33 AM CDT Sexual Orientation Not on file Last Filed Vital Signs Vital Sign Reading Time Taken Comments Blood Pressure 144/86 12/23/2023 1:11 PM CDT Pulse 90 12/23/2023 1:11 PM CDT Temperature 36.5 C (97.7 F) 03/19/2023 1:33 PM AIRCRAFT MAINTENANCE ENGINEER Respiratory Rate - - Oxygen Saturation 96% 12/23/2023 1:11 PM CDT Inhaled Oxygen Concentration - - Weight 122.9 kg (271 lb) 12/23/2023 1:11 PM CDT Height 180.3 cm (5' 11 ) 12/23/2023 1:11 PM CDT Body Mass Index 37.8 12/23/2023 1:11 PM CDT Plan of Treatment Not on file Insurance [facility] MEDICARE MEDICARE [facility] Care Teams Blending Line Attendant Relationship Specialty Start Date End Date Stella Mcneill NP [facility] [place] [address] PCP - General Nurse Practitioner 11/17/23
--- OUTSIDE RECORDS SUMMARY | 2024-07-04 00:21 | XMS_ITS | Clinical Summary ---
Author Organization [facility] CompleteSet Address [address] [place] [address] Care Team Providers Care Ornamental Metal Fabricator Apprentice Name Role Phone Mukesh Maldonado MD Unavailable [phone] Jazlyn Villarreal MD Unavailable [phone] Stella Mcneill APRN-[facility] Primary Care Provider + Source Comments [facility],non-owned Affiliates and Associated Physician Practices is amultiple site organization consisting of ambulatory clinics and hospital sitesin [place], [place], [place] and [place]. This disclosure is being madepursuant to the Care Everywhere program and may not contain all information available regarding this patient. Last updated 17.[facility] Allergies Active Allergy Reactions Criticality Noted [...] 5 tablet 10/15/19 22 Active HYDROcodone-stephen taminophen ([place]) 7.5-325 MG tablet Take 1 (one) tablet [...] on routine screening biochemistries and managed at [facility] until recently when insurance coverage changed and no longer at accepted at [facility]. No prior medical records available at the [...] 4 3. Follow up with local adult data architect manager Assessment & Plan (04/13/2017 9:54 AM SAWMILL OR TIMBER YARD WORKER): Acquired hypothyroidism 1. L-thyroxine 0.125 mg daily 2. Obtain serum TSH and total T4 following today's office appointment 3. Return appointment in one year Assessment & Plan (04/01/2016 2:06 PM SAWMILL OR TIMBER YARD WORKER): 1. L-thyroxine 0.125 mg daily. 2. Obtain serum TSH and total T4 level following today's office appointment. 3. Counseled regarding medication adherence, keeping return appointments for blood specimen collections, return visits, and risks of developing other autoimmune diseases (diabetes mellitus, hypoparathyroidism). 4. Obtain serum TSH in six months. 5. Return appointment in one year. Assessment & Plan (01/08/2015 3:16 PM SAWMILL OR TIMBER YARD WORKER): 1. L-thyroxine 0.1 mg daily. 2. Obtain [...] completed. Assessment & Plan (04/13/2017 9:53 AM SAWMILL OR TIMBER YARD WORKER): Acanthosis nigricans; morbid obesity, BMI > 43 (> 99th percentile); FH diabetes mellitus; at risk of developing diabetes mellitus 1. Fasting glucose, lipid profile, hemoglobin A1c 2. Dietary/exercise counseling provided 3. Referral to clinical radiology administrator 4. Reviewed signs/symptoms/treatment of diabetes mellitus Assessment & Plan (04/01/2016 2:08 PM SAWMILL OR TIMBER YARD WORKER): At risk of developing diabetes mellitus. 1. Obtain fasting comprehensive metabolic panel, hemoglobin A1c, lipid profile. 2. Dietary/exercise counseling provided - to facilate current weight loss (portion size control, decrease dietary concentrated sweets/fats; avoid skipped meals, limit TV . Assessment & Plan (01/08/2015 3:15 PM SAWMILL OR TIMBER YARD WORKER): At risk of developing diabetes mellitus. 1. Signs/symptoms of diabetes mellitus reviewed. 2. Dietary counseling provided. 3. Obtain serum glucose and hemoglobin A1c level following today's office appointment (laboratory requisition given at the time of the appointment). 4. Return appointment in six months. 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 06/14/2024 12:30 PM CDT - 06/14/2024 11:59 PM CDT Hospital Encounter [facility] CANCER CARE DRAWSTATION [address] [place] [address], [address] [place] [address] Discharge Disposition: Home or Self Care 06/14/2024 Travel 06/11/2024 Orders Only [facility] PHYS HEM/ONC [address] [place] [phone] Jazlyn Villarreal MD Chronic benign neutropenia 06/10/2024 Orders Only [facility] PHYS HEM/ONC [address] [place] [phone] Jazlyn Villarreal MD Chronic benign neutropenia 06/08/2024 Orders Only [facility] [address] [place] [phone] Jazlyn Villarreal MD 05/27/2024 Refill [facility] [address] [place] [phone] Chuck Lama RN MEDICATION REFILL 05/13/2024 9:56 AM CDT - 05/13/2024 11:59 PM CDT Hospital Encounter [facility] US [address] [place] [phone] Jazlyn Villarreal MD Discharge Disposition: Home or Self Care 05/13/2024 Travel 05/10/2024 Orders Only [facility] - Hematology/Oncology [address] [place] [phone] Jazlyn Villarreal MD Neutropenia, unspecified type 04/25/2024 Telephone [facility] - Hematology/Oncology [address] [place] [phone] Jazlyn Villarreal MD Medication Prior Auth Request 04/25/2024 Telephone [facility] - Hematology/Oncology [address] [place] [phone] Jazlyn Villarreal MD Medication Prior Auth Request 04/22/2024 Telephone [facility] - Hematology/Oncology [address] [place] [phone] Jazlyn Villarreal MD Medication Prior Auth Request 04/22/2024 Telephone [facility]ician [facility] - Hematology/Oncology [address] [place] [phone] Jazlyn Villarreal MD Medication Prior Auth Request 04/22/2024 Orders Only [facility] [address] [place] [phone] Chuck Lama RN 04/19/2024 1:40 PM SAWMILL OR TIMBER YARD WORKER Office Visit [facility] - Hematology/Oncology [address] [place] [phone] Lucila King MD Rajeh, Mhd Nabeel, MD Neutropenia, unspecified type (Primary Dx); Chronic benign neutropenia 04/19/2024 1:09 PM SAWMILL OR TIMBER YARD WORKER - 04/19/2024 11:59 PM SAWMILL OR TIMBER YARD WORKER Hospital Encounter [facility] LAB OP DRAW STATION [address] [place] [phone] Lucila King MD Discharge Disposition: Home or Self Care 04/19/2024 Telephone [facility] - Hematology/Oncology [address] [place] [address] [phone] Jazlyn Villarreal MD Medication Prior Auth Request 04/19/2024 Telephone [facility] - Hematology/Oncology [address] [place] [phone] Jazlyn Villarreal MD 04/19/2024 Orders Only [facility] [address] [place] [phone] Susan Sanches, INSULATION CUTTER AND FORMER-WINDING INSPECTOR 04/19/2024 Travel 04/15/2024 Orders Only [facility] - Hematology/Oncology [address] [place] [phone] Jazlyn Villarreal MD Chronic benign [...] on file Legal Sex Male 5:44 AM SAWMILL OR TIMBER YARD WORKER Gender Identity Not on file Sexual Orientation [...] Description 07/12/2024 2:20 PM CDT Office Visit [facility] - Hematology/Oncology [address] [place] [phone] Jazlyn Villarreal MD [address] [facility] [place] [address] Health Maintenance Due Date Last Done Comments [...] 1:07 PM CDT Neutropenia, unspecified type Other jail (current) drug therapy FOLATE Routine 06/14/2024 1:07 [...] W AUTO DIFFERENTIAL Routine 04/19/19 1:16 PM SAWMILL OR TIMBER YARD WORKER Neutropenia, unspecified type COMPREHENSIVE METABOLIC PANEL Routine 04/19/2024 1:16 PM SAWMILL OR TIMBER YARD WORKER Neutropenia, unspecified type MAGNESIUM BLOOD Routine 04/19/2024 1:16 PM SAWMILL OR TIMBER YARD WORKER Neutropenia, unspecified type PHOSPHORUS BLOOD Routine 04/19/2024 1:16 PM SAWMILL OR TIMBER YARD WORKER Neutropenia, unspecified type HIV-1 HIV-2 ANTIBODY + HIV P24 AG PANEL Routine 09/10/2021 3:11 PM CDT Leukopenia, unspecified type from Last 3 Months or Most Recently Relevant to Health Maintenance Results * (ABNORMAL) CBC WITH DIFFERENTIAL (06/14/2024 1:07 PM CDT) Only the most recent of2 resultswithin the time period is included. WBC 6.9 4.0 - 10.7 x10E9/L 06/14/2024 1:43 PM CDT [facility] RBC Count 5.64 4.30 - 5.80 x10E12/L 06/14/2024 1:43 PM CDT [facility] Hemoglobin 16.4 13.3 - 17.5 g/dL 06/14/2024 1:43 PM CDT [facility] Hematocrit 46.2 38.7 - 51.1 % 06/14/2024 1:43 PM CDT [facility] MCV 81.9 80.0 - [...] 1:07 PM CDT 06/14/2024 1:17 PM CDT [facility] Sohan Villarreal MD LAB - HEMATOLOGY ORDERABLES Final Result [facility] [address] [place] [address], [facility] [phone] * (ABNORMAL) COMPREHENSIVE METABOLIC PANEL (06/14/2024 1:07 [...] - 55 U/L 06/14/2024 1:52 PM CDT [facility] AST 17 5 - 34 U/L 06/14/2024 1:52 PM CDT [facility] Anion Gap 13 6 - 16 06/14/2024 1:52 PM CDT [facility] BUN/Creatinine Ratio 13 7 - 23 06/14/2024 1:52 PM CDT [facility] Osmolality Calculated 293 275 - 295 mOsm/kg 06/14/2024 1:52 PM T [facility] Albumin/Globulin Ratio 1.7 1.1 - 2.3 06/14/2024 1:52 PM T [facility] eGFR by CKD-EPI >90 >=90 mL/min/1.7 3 m2 06/14/2024 1:52 PM CDT [facility] Blood BLOOD SPECIMEN / Unknown Lab Venipuncture / Unknown 06/14/2024 1:07 PM CDT 06/14/2024 1:17 PM CDT [facility] Sohan Villarreal MD LAB - CHEMISTRY ORDERABLES F inal Result Performing Organization Address City/[facility]/ZIP Co de Phone Number [address] [address], [facility] [phone] * PHOSPHORUS BLOOD (06/14/2024 1:07 PM CDT) Only the most recent of2 resultswithin the time period is included. Phosphorus 4.3 2.8 - 5.1 mg/dL 06/14/2024 1:52 PM T [facility] Blood BLOOD SPECIMEN / Unknown Lab Venipuncture / Unknown 06/14/2024 1:07 PM CDT 06/14/2024 1:17 PM CDT [facility] Sohan Villarreal MD LAB - CHEMISTRY ORDERABLES F inal Result [address] [address], [place] [phone] * MAGNESIUM BLOOD (06/14/2024 1:07 PM CDT) Only the most recent of2 resultswithin the time period is included. [facility] Magnesium 2.0 1.6 - 2.6 mg/dL 06/14/2024 1:52 PM CDT [facility] Blood BLOOD SPECIMEN / Unknown Lab Venipuncture / Unknown 06/14/2024 1:07 PM CDT 06/14/2024 1:17 PM CDT [facility] - CHEMISTRY ORDERABLES F inal Result [address] [address], [place] [phone] * (ABNORMAL) LDH BLOOD (06/14/2024 1:07 PM CDT) [facility] LDH Total 98(L) 125 - 243 Units/L 06/14/2024 1:52 PM CDT [facility] Blood BLOOD SPECIMEN / Unknown Lab Venipuncture / Unknown 06/14/2024 1:07 PM CDT 06/14/2024 1:17 PM CDT Jazlyn Villarreal MD LAB - CHEMISTRY ORDERABLES F inal Result Performing Organization Address City/[facility]/ZIP Co de Phone Number [address] [address], [place] [phone] * FOLATE (06/14/2024 1:07 PM CDT) [facility] Folate 12.9 7.0 - 31.4 ng/mL 06/14/2024 2:24 PM CDT [facility] Blood BLOOD SPECIMEN / Unknown Lab Venipuncture / Unknown 06/14/2024 1:07 PM CDT 06/14/2024 1:17 PM CDT Jazlyn Villarreal MD LAB - CHEMISTRY ORDERABLES F inal Result [address] [address], [place] [phone] * VITAMIN B12 (06/14/2024 1:07 PM CDT) Vitamin B12 739 213 - 816 pg/mL 06/14/2024 2:24 PM CDT [facility] Blood BLOOD SPECIMEN / Unknown Lab Venipuncture / Unknown 06/14/2024 1:07 PM CDT 06/14/2024 1:17 PM CDT [facility] Sohan Villarreal MD LAB - CHEMISTRY ORDERABLES F inal Result [address] [address], [facility] [phone] * (ABNORMAL) IMMUNOGLOBULINS IGG/IGM/IGA PANEL (06/14/2024 1:07 PM CDT) IgG 973 767 - 1,590 mg/dL 06/14/2024 2:40 PM CDT [facility] IgM 47 37 - 286 mg/dL 06/14/2024 2:40 PM CDT [facility] IgA 39(L) 61 - 356 mg/dL 06/14/2024 2:40 PM CDT [facility] Blood BLOOD SPECIMEN / Unknown Lab Venipuncture / Unknown 06/14/2024 1:07 PM CDT 06/14/2024 2:14 PM CDT [facility] LAB - CHEMISTRY ORDERABLES F inal Result [address] [address], [place] [phone] * US Abdomen Limited (05/13/2024 10:29 AM [...] performed with DICOM image capture performed by radioisotope technologist. FINDINGS: Spleen is enlarged and measures [...] Roderick Osei MD on 512:15 PM us [facility] Sohan Villarreal MD US ORDERABLES Final Result * HIV-1 HIV-2 ANTIBODY + HIV P24 AG PANEL (09/10/2021 3:11 PM CDT) HIV Antigen/Antibod y 1 & 2 Non-reacti ve Non-react juan m 09/10/2021 4:44 PM CDT [facility] Comment:No Laboratory eviden ce of HIV infection. Blood BLOOD SPECIMEN / Unknown Lab Venipuncture / Unknown 09/10/2021 3:11 PM CDT 09/10/2021 3:28 PM CDT us Jazlyn Villarreal MD LAB - CHEMISTRY ORDERABLES F inal Result [facility] [address] [place] [phone] [phone] from Last 3 Months or Most Recently Relevant to Health Maintenance Insurance MEDICARE MEDICAID - [place] Care Teams Ornamental Metal Fabricator Apprentice Relationship Specialty Start Date End Date Stella Mcneill APRN-[facility] Family [facility] [address] [address] PCP - General 06/14/24 Mukesh Maldonado MD [address] [place] [address] [facility] [place] [address] Allergy and Immunology 08/30/19 Jazlyn Villarreal MD [address] [place] [address] Ostrich Farmer/Oncologist Hematology and Oncology 09/15/19
--- OUTSIDE RECORDS SUMMARY | 2024-07-04 00:21 | XMS_ITS ---
Author Organization [facility] Address [address] [place] [address] Care Team Providers Care Php Programmer Name Role Phone Susan Baeza Primary Care Provider [phone] REASON FOR VISIT 3 month follow up Encounters Encounter Location Date Provider Diagnosis Differential Dynamics & DIAGNOSTIC, [facility] - Susan Baeza [address] [place] [address] 03/21/2024 Susan Baeza Plan Of Treatment No Information Progress Notes * Diego BYRDKatelynOB:2000 ( 23 yo M)Acc No.[id number]:03/21/2024 Progress Notes Patient: Bob PINEDA Provider: Anupama Baeza MD :2000 A ge:23 Y S ex:Male Date:03/21/2024 [id number] Subjective: * Chief Complaints: * 1 . 3 month follow up. * Medical History: Objective: * Vitals: Assessment: Plan: * Treatment: * Billing Information: * Visit Code: * Procedure Codes: * Electronic signature of Kevyn Baeza MD on 07/04/2024 at 12:21 AM CDT Sign off status: Pending * Provider: Anupama Baeza MD Date: 0 03/21/2024 Generated for Nicolas dolan/Mitra/eTransmitting on: 0 07/04/2024 12:21 AM CDT
--- OUTSIDE RECORDS SUMMARY | 2024-07-04 00:21 | XMS_ITS | Clinical Summary ---
Author Organization [facility] Address [address] [place] [address] Care Team Providers Care Manager Mountain Name Role Phone Lucila Turner MD Primary Care Provider [phone] Allergies Active Allergy Reactions Criticality Noted Date [...] Tobacco: Never Tobacco Cessation:Counseling Given: Not Answered [facility] Utilities Answer Date Recorded In the past 12 months has [employer], [employer], oil, or water [employer] threatened to shut off services in your [...] week 02/06/2023 How often do you attend [facility] or spiritism services? More than 4 times per year 02/06/2023 Do you belong to any clubs o r organizations such as worship groups, unions, fraternal or athletic groups, or [...] place to sleep or slept in a fpc (including now)? No 02/06/2023 Sex and Gender Information Value Date Recorded Sex Assigned at Not on file Legal Sex Male 3:52 PM TECHNICAL SOLUTIONS ENGINEER Gender Identity Not on file Sexual Orientation Not on file Last Filed Vital Signs Vital Sign Reading Time Taken Comments Blood Pressure 126/74 02/07/2023 8:35 AM TECHNICAL SOLUTIONS ENGINEER Pulse 116 02/06/2023 1:00 PM TECHNICAL SOLUTIONS ENGINEER Temperature 36.1 C (97 F) 02/07/2023 6:21 AM TECHNICAL SOLUTIONS ENGINEER Respiratory Rate 20 02/06/2023 8:40 PM TECHNICAL SOLUTIONS ENGINEER Oxygen Saturation 95% 02/07/2023 8:35 AM TECHNICAL SOLUTIONS ENGINEER Inhaled Oxygen Concentration - - Weight 128.8 kg (284 lb) 02/05/2023 3:53 PM TECHNICAL SOLUTIONS ENGINEER Height 180.3 cm (5' 11 ) 02/05/2023 3:53 PM TECHNICAL SOLUTIONS ENGINEER Body Mass Index 39.61 02/05/2023 3:53 PM TECHNICAL SOLUTIONS ENGINEER Plan of Treatment Health Maintenance Due Date [...] 10:43 PM 02/07/2023 1:35 PM Care Teams Manager Mountain Relationship Specialty Start Date End Date Lucila Turner MD [address] [place] [address] PCP - General FAMILY PRACTICE 02/05/23
[2024-07-04 00:59] LABS: Alanine Aminotransferase 48 U/L (6-50); Albumin Level 4.9 g/dL (3.5-5.1); Alkaline Phosphatase 54 U/L (38-126); Anion Gap 11 mmol/L (4-12); Aspartate Amino Transferase 34 U/L (17-59); Bilirubin,Total 2.1 mg/dL (0.2-1.3); Blood Urea Nitrogen 18 mg/dL (9-20); Calcium 9.7 mg/dL (8.4-10.2); Carbon Dioxide 28 mmol/L (22-30); Chloride 105 mmol/L (98-107); Estimated CRCL calculation 126 ml/min; Estimated Glomerular Filt Rate > 60; Glucose 106 mg/dL (65-110); Lipase 69 U/L (23-300); Sodium 144 mmol/L (137-145)
[2024-07-04 01:03] LABS: Add Urine Microscopic? NO; Appearance Urine Clear (Clear); Bilirubin Urine Negative (Negative); Blood Urine Negative (Negative); Color Urine Yellow (Yellow); Glucose Urine UA Negative (Negative); Ketones Urine Negative (Negative); Leukocyte Esterase Ur Negative LEU/UL (Negative); Nitrate Urine Negative (Negative); Protein Urine Negative (Negative); Specific Grav Ur 1.003 (1.001-1.035); Urobilinogen Urine 0.2 mg/dL (<2.0)
[2024-07-04 01:05] LABS: Basophils Absolute Auto 0.1 K/mm3 (0.0-0.1); Basophils Percent Auto 1.5 % (0.2-1.2); Eosinophils Absolute Auto 0.1 K/mm3 (0-0.3); Eosinophils Percent Auto 2.4 % (0-4.4); Hematocrit 45.8 % (42.0-52.0); Hemoglobin 15.7 g/dL (14.0-18.0); Immature Granulocyte Absolute 0.01 K/mm3 (0.00-0.031); Immature Granulocyte Percent A 0.3 % (0-0.5); Immature Platelet Fraction Pct 12.1 % (0.9-11.2); Lymphocytes Absolute Auto 0.85 K/mm3 (0.9-3.2); Lymphocytes Percent Auto 25.1 % (18.3-44.2); Mean Corpuscular HGB Conc 34.3 g/dl (32-36); Mean Corpuscular Hemoglobin 28.6 pg (26-34); Mean Corpuscular Volume 83.4 fl (80-100); Mean Platelet Volume 12.9 fl (7.4-10.4); Monocytes Absolute Auto 0.5 K/mm3 (0.1-0.6); Monocytes Percent Auto 14.2 % (2.6-8.5); Neutrophils Absolute Auto 1.9 K/mm3 (1.3-6.7); Neutrophils Percent Auto 56.5 % (45.5-73.1); Platelet Count Result 82 k/mm3 (150-375); Red Blood Count 5.49 M/mm3 (4.6-6.20); Red Cell Distribution Width 11.9 % (11.5-14.5); White Blood Count 3.4 K/mm3 (4.5-10.0)
[2024-07-04 01:28] LABS: Platelet Estimate Decreased (Adequate); Schistocytes None Seen
--- NOTE | 2024-07-04 01:39 | ED_ITS ---
HPI - General Adult General Chief complaint: Urogenital-Male Stated complaint: groin pain Time Seen by Provider: 07/04/24 00:10 History of Present Illness HPI narrative: This is a 23-year-old male presenting ED with chief complaint of testicle pain. Patient is evaluated 2 days ago for pain in his testicles. He was discharged with a course of Cipro Floxin suspected epididymitis. He has been taking Cipro as instructed. However he has continued to have pain in his testicles. He now has some pain in his lower back and left flank. He denies fevers chills nausea vomiting or diarrhea. No chest pain or difficulty breathing. Patient has not had follow-up urology. Related Data Home Medications ?Medication ?Instructions ?Recorded ?Confirmed ?Last Taken ?Type levothyroxine 137 mcg tablet 137 mcg PO DAILY 02/05/22 03/08/24 Unknown History albuterol sulfate 90 mcg/actuation 2 puff inhalation Q4-5H PRN 08/28/22 03/08/24 Unknown History aerosol inhaler (Ventolin HFA) Shortness Of Breath Or Wheezing budesonide-formoterol HFA 160 2 puff inhalation BID 08/28/22 03/08/24 Unknown History mcg-4.5 mcg/actuation aerosol inhaler (Symbicort) Fiber BYMOUTH 06/30/23 03/08/24 Unknown History Stool Softeners BYARUTH 06/30/23 03/08/24 Unknown History buspirone 10 mg tablet 10 mg PO BID 12/28/23 03/08/24 Unknown History zinc glycinate 30 mg capsule 30 mg PO DAILY 03/08/24 03/08/24 Unknown History Allergies Allergy/AdvReac Type Severity Reaction Status Date / Time Sulfa (Sulfonamide Allergy Unknown Unknown Verified 07/04/24 00:11 Antibiotics) vancomycin Allergy Unknown Unknown Verified 07/04/24 00:11 [facility] Past Medical History Medical History External hemorrhoids Abnormal finding on imaging Hidradenitis suppurativa Hemorrhoids Anal fissure Family hx of colon cancer Family hx colonic polyps Chronic benign neutropenia Hematochezia GERD (gastroesophageal reflux disease) Nausea and vomiting Obesity Family History Family History Mother Asthma Diabetes mellitus Hypertension Depression Heart disease Cerebrovascular accident History of ETOH abuse Disorder of thyroid Grandparent Diabetes mellitus Hypertension Lung cancer Ovarian cancer Social History Social History Smoking status: Never smoker Alcohol intake: never Substance use: never Substance use type: does not use Lack of Transportation: No Lack of Food: Never True Current Housing: I Have Housing Concerned About Future Housing: No Difficulty Paying Gas/Electric Bills: No Difficulty Paying for Meds: No Currently Unemployed: YES Education: High School Diploma/GED Living arrangements: with family Occupation/Education: unemployed Gender identity (if verbalized by the patient): Male Spiritual care concerns: No Exam 2 Narrative: APPEARANCE: No apparent distress. Well-appearing, polite/friendly Head: atraumatic. EYES: EOMI, NOSE: Atraumatic NECK: Trachea midline RESPIRATORY: No increased rate of breathing clear to auscultation CARDIOVASCULAR: RRR, no peripheral edema ABDOMINAL: Non-distended, soft nontender no guarding rebound : Normal external genitalia, no tenderness to the testicles, normal lie MUSCULOSKELETAl: No obvious deformities NEURO: Alert. Moving 4/4 extremities SKIN:: Warm, dry. Normal color PSYCHIATRIC: Normal affect Course Vital Signs Vital signs: Vital Signs Pulse Rate 104 H 07/03/24 23:17 Respiratory Rate 14 07/03/24 23:17 Blood Pressure 151/97 H 07/03/24 23:17 Pulse Oximetry 99 07/03/24 23:17 Oxygen Delivery Room Air 07/03/24 23:17 Pulse Rate 93 07/04/24 02:34 Respiratory Rate 16 07/04/24 02:34 Blood Pressure 147/94 H 07/04/24 02:34 Pulse Oximetry 97 07/04/24 02:34 Oxygen Delivery Room Air 07/03/24 23:17 Medical Decision Making MDM Narrative Medical decision making narrative: -Course: 23-year-old male presenting ED with chief complaint of testicle pain. Exam is normal with no pain testicles. He is already had a scrotal ultrasound in the last several days and I am not concerned for torsion. Laboratory studies, urinalysis and CT abdomen pelvis did not reveal any causative findings. He has not yet followed up with his urologist who is going to call tomorrow morning. Results were discussed the patient. He is comfortable going home and following up with his urologist and primary care physician for further management. Given return precautions. -DDX includes but is not limited to: Orchitis, epididymitis, torsion, kidney stone prostatitis Vital Signs Vital Signs: Vital Signs Pulse Rate 104 H 07/03/24 23:17 Respiratory Rate 14 07/03/24 23:17 Blood Pressure 151/97 H 07/03/24 23:17 Pulse Oximetry 99 07/03/24 23:17 Oxygen Delivery Room Air 07/03/24 23:17 Pulse Rate 93 07/04/24 02:34 Respiratory Rate 16 07/04/24 02:34 Blood Pressure 147/94 H 07/04/24 02:34 Pulse Oximetry 97 07/04/24 02:34 Oxygen Delivery Room Air 07/03/24 23:17 Lab Data 07/04/24 00:41 07/04/24 00:41 Labs: Lab Results 07/04/24 07/04/24 Range/Units 00:11 00:41 WBC 3.4 L (4.5-10.0) K/mm3 RBC 5.49 (4.6-6.20) M/mm3 Hgb 15.7 (14.0-18.0) g/dL Hct 45.8 (42.0-52.0) % MCV 83.4 (80-100) fl MCH 28.6 (26-34) pg MCHC 34.3 (32-36) g/dl RDW 11.9 (11.5-14.5) % Plt Count 82 L (150-375) k/mm3 MPV 12.9 H (7.4-10.4) fl Immature Gran % (Auto) 0.3 (0-0.5) % Neut % (Auto) 56.5 (45.5-73.1) % Lymph % (Auto) 25.1 (18.3-44.2) % Bullock % (Auto) 14.2 H (2.6-8.5) % Eos % (Auto) 2.4 (0-4.4) % Baso % (Auto) 1.5 H (0.2-1.2) % Lymph # (Auto) 0.85 L (0.9-3.2) K/mm3 Bullock # (Auto) 0.5 (0.1-0.6) K/mm3 Eos # (Auto) 0.1 (0-0.3) K/mm3 Baso # (Auto) 0.1 (0.0-0.1) K/mm3 Abs Immat Gran (auto) 0.01 (0.00-0.031) K/mm3 Absolute Neuts (auto) 1.9 (1.3-6.7) K/mm3 Absolute Nucleated RBC 0.000 (0.0-0.012) K/mm3 Band Neutrophils % Not Reportable Nucleated RBC % 0.0 (0.0-0.2) % Platelet Estimate Decreased (Adequate) % Immature Plt Fraction 12.1 H (0.9-11.2) % Schistocytes None seen Sodium 144 (137-145) mmol/L Potassium 4.0 (3.4-5.0) mmol/L Chloride 105 (98-107) mmol/L Carbon Dioxide 28 (22-30) mmol/L Anion Gap 11 (4-12) mmol/L BUN 18 (9-20) mg/dL Creatinine 1.08 (0.7-1.3) mg/dL Estim Creat Clear Calc 126 ml/min Estimated GFR > 60 (59 - ) Glucose 106 (65-110) mg/dL Calcium 9.7 (8.4-10.2) mg/dL Total Bilirubin 2.1 H (0.2-1.3) mg/dL AST 34 (17-59) U/L ALT 48 (6-50) U/L Alkaline Phosphatase 54 (38-126) U/L Total Protein 8.0 (6.3-8.2) g/dL Albumin 4.9 (3.5-5.1) g/dL Lipase 69 (23-300) U/L Urine Color Yellow (Yellow) Urine Appearance Clear (Clear) Urine pH 7.0 (5.0-9.0) Ur Specific [place] 1.003 (1.001-1.035) Urine Protein Negative (Negative) mg/dL Urine Glucose (UA) Negative (Negative) mg/dL Urine Ketones Negative (Negative) mg/dL Ur Blood (Man) Negative (Negative) Urine Nitrate Negative (Negative) Urine Bilirubin Negative (Negative) Urine Urobilinogen 0.2 (<2.0) mg/dL Leukocyte Esterase Rfl Negative (Negative) DANUTA/UL Discharge Plan Discharge Clinical Impression: Pain in testicle Patient Disposition: Home Condition: Stable Instructions: Antibiotic Form, Testicle Pain (ED) Additional Instructions: You were seen emergency department for testicle pain. Please continue taking your Cipro. Use Motrin Tylenol for pain. Please follow-up with your urologist as soon as possible. Please see your primary care physician for any other complaints. Return if you develop fevers or any new or worsening symptoms. Patient Language: Vincentian Prescriptions: No Action buspirone 10 mg tablet 10 mg PO BID Fiber BYMOUTH Rx Instructions: Prn Stool Softeners BYMOUTH Rx Instructions: Prn zinc glycinate 30 mg capsule 30 mg PO DAILY albuterol sulfate [Ventolin HFA] 90 mcg/actuation HFA aerosol inhaler 2 puff INHALATION Q4-5H PRN (Reason: Shortness Of Breath Or Wheezing) budesonide-formoterol [Symbicort] 160-4.5 mcg/actuation HFA aerosol inhaler 2 puff INHALATION BID levothyroxine 137 mcg tablet 137 mcg PO DAILY ciprofloxacin HCl [Cipro] 500 mg tablet 500 mg PO Q12H Qty: 14 0RF azithromycin 250 mg tablet See Rx Instructions PO .COMPLEX Qty: 6 0RF Rx Instructions: For 250 mg dose pack: take 500 mg today (day 1), then 250 mg for 4 days (days 2-5) PO loratadine [Claritin] 10 mg tablet 10 mg PO DAILY Qty: 90 3RF lorazepam 0.5 mg tablet 0.5 mg PO DAILY PRN (Reason: panic attack(s)) Qty: 30 1RF pantoprazole 40 mg tablet,delayed release (DR/EC) 40 mg PO QAM Qty: 30 1RF montelukast 10 mg tablet See Rx Instructions .ROUTE .COMPLEX Qty: 90 1RF Dose Instruction: TAKE 1 TABLET BY MOUTH DAILY Rx Instructions: TAKE 1 TABLET BY MOUTH DAILY atorvastatin 20 mg tablet See Rx Instructions .ROUTE .COMPLEX Qty: 90 1RF Dose Instruction: TAKE 1 TABLET BY MOUTH DAILY Rx Instructions: TAKE 1 TABLET BY MOUTH DAILY Follow-up/Referrals: Stella Mcneill APRN [Primary Care Provider] -
[2024-07-04 02:34] VITALS: BP 147/94; PULSE 93; RESP 16; O2SAT 97
[2024-07-04 04:44] VITALS: BP 140/89; PULSE 97; RESP 15; TEMP 36.4; O2SAT 99
[2024-07-04 04:46] VITALS: BP 140/89; PULSE 97; RESP 15; TEMP 36.4; O2SAT 99
== END 2024-07-04 04:48 | disposition home or self-care (01) ==
PROVIDERS: Physician Assistant; Emergency Provider Emergency Medicine; PCP Nurse Practitioner Adult Health
DX: N50.812 Left testicular pain (principal); N50.811 Right testicular pain; K21.9 Gastro-esophageal reflux disease without esophagitis; E66.9 Obesity, unspecified; Z68.39 Body mass index [BMI] 39.0-39.9, adult; Z79.899 Other long term (current) drug therapy
CPT/HCPCS: 36415; 74176; 80053; 81003; 83690; 85025; 85055; 99284

== ENCOUNTER 2024-12-01 09:55 | Outpatient (CLI) | payer MEDICARE, MEDICAID, SELFPAY ==
--- NOTE | ~2024-12-01 | XR_ITS ---
EXAMINATION: XR abdomen/kub 1V, 12/01/2024 10:00 CDT HISTORY: M54.50 - Low back pain, unspecified COMPARISON: No comparisons available. Technique: 3 view. Findings: Moderate fecal content, no dilated bowel loops No free air. No abnormal calcifications No acute osseous abnormality. Impression: 1. No acute abnormality. Reviewed, dictated and finalized at location P. Impression: 1. No acute abnormality.
[2024-12-01 19:24] LABS: Hematocrit 47.3 % (42.0-52.0); Hemoglobin 15.3 g/dL (14.0-18.0); Immature Platelet Fraction Pct 17.9 % (0.9-11.2); Mean Corpuscular HGB Conc 32.3 g/dl (32-36); Mean Corpuscular Hemoglobin 28.5 pg (26-34); Mean Corpuscular Volume 88.2 fl (80-100); Red Blood Count 5.36 M/mm3 (4.6-6.20); White Blood Count 7.6 K/mm3 (4.5-10.0)
[2024-12-01 19:25] LABS: Platelet Count Result 43 k/mm3 (150-375)
[2024-12-01 19:31] LABS: Add Urine Microscopic? NO; Appearance Urine Clear (Clear); Glucose Urine UA Negative (Negative); Leukocyte Esterase Ur Negative LEU/UL (Negative); Nitrate Urine Negative (Negative); Specific Grav Ur 1.017 (1.001-1.035)
[2024-12-01 19:38] LABS: Alanine Aminotransferase 31 U/L (6-50); Albumin Level 4.6 g/dL (3.5-5.1); Alkaline Phosphatase 67 U/L (38-126); Anion Gap 8 mmol/L (4-12); Aspartate Amino Transferase 35 U/L (17-59); Bilirubin,Total 1.2 mg/dL (0.2-1.3); Blood Urea Nitrogen 14 mg/dL (9-20); Calcium 9.3 mg/dL (8.4-10.2); Carbon Dioxide 31 mmol/L (22-30); Chloride 101 mmol/L (98-107); Estimated Glomerular Filt Rate > 60; Glucose 104 mg/dL (65-110); Potassium 3.9 mmol/L (3.4-5.0); Sodium 140 mmol/L (137-145); Total Protein 7.7 g/dL (6.3-8.2)
== END 2024-12-01 09:56 | disposition home or self-care (01) ==
LOC: ANHBWCLAB 09:56
PROVIDERS: PCP Nurse Practitioner Adult Health; Visit Provider Nurse Practitioner Adult Health
DX: R39.9 Unspecified symptoms and signs involving the genitourinary system (principal); M54.50 Low back pain, unspecified
CPT/HCPCS: 36415; 74018; 80053; 81003; 85027; 85055; 87086